=== PATIENT | female | born 1985 | race Caucasian/White ===

== ENCOUNTER 2020-03-15 08:30 | Outpatient (RCR) | payer BC, SELFPAY ==
--- NOTE | 2020-03-15 09:05 | BH.SGPN.GN ---
Behaviors/Verbalizations/Mental Status: [] Eye contact is good. Motor activity is appropriate. Appearance is casual. Speech is Appropriate. Mood is anxious. Affect is congruent. Thoughts are linear and logical. No evidence of psychosis. Reviewed daily check in sheet and pt reports 3/5 for suicidal thoughts and 0/5 for intent. Safety planning completed prior to group. Client Response/Progress/Benefit: [] Pt participated when prompted however was attentive. This was pt's first IOP group. Emotion for today is anxious. Shared that she is in IOP because my doctor thinks I need this. Shared that she wants to get back to feeling healthy and is looking forward to feedback from leena. Group welcomed her to [facility] and provided some feedback on what to expect the first day and week. Limited progress noted. Benefited from group support, encouragement, and feedback. Will continue in IOP to maintain safety, prevent decompensation, and improve functioning. Narrative Note: []
--- NOTE | 2020-03-15 10:16 | BH.SGPN.GN ---
Behaviors/Verbalizations/Mental Status: []Client alert and oriented, casual dress, hygiene tended to. Eye contact fair. Motor activity appropriate. Speech within normal limits. Affect constricted, mood anxious and depressed. Thoughts linear, logical, no signs of hallucinations or delusions. Client Response/Progress/Benefit: []Mostly passive participant AEB pt providing limited input during session however appeared to listen attentively to others. Engaged during psychoeducation portion reviewing fixed mindset. Appeared to listen to group identify how a fixed mindset can impact our mental health which included: decreased motivation, giving up when faced with a setback, not asking for help, low self-esteem, and staying stuck. Pt identified one fixed thought she has is, I'm never going to get better?. Pt did well to recognize that this fixed thought leads to laying in bed all day. Seemed to benefit from group by increasing awareness of how one's mindset impacts mental health. Pt's first day in IOP. Pt to continue IOP level of care to increase healthy coping skills, maintain safety, and prevent decompensation. Narrative Note: []
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
--- NOTE | 2020-03-15 11:02 | BH.COMM ---
Communication Note - Communication with Client Communication Note: Therapist was given permission to talk with client's friend, Malcolm, regarding medication removal. Malcolm agreed to call IOP today after client removes the medications from her home and gives them to Malcolm.
--- NOTE | 2020-03-15 11:16 | BH.SGPN.GN ---
Behaviors/Verbalizations/Mental Status: [] Client alert and oriented, casually dressed and groomed. Eye contact fair to good. Motor activity appropriate. Speech within normal limits, quiet. Affect unable to gather due to client wearing a mask as part of COVID-19 protocol. mood anxious and depressed. Thoughts linear, logical, no signs of hallucinations or delusions. Client Response/Progress/Benefit: []Client first day in IOP treatment, she did well to remain engaged during discussion and listened attentively to peers. Client actively taking notes and remained attentive during discussion on growth mindset. Did well to work with group on identifying characteristics and benefits of adopting a growth mindset. Client engaged during example activity in which participants helped reframe example fixed thoughts into growth mindset thoughts. However, she did not want to share own personal reframed thought, but was willing to complete the worksheet aimed at reframing personal fixed thought. Client identified reframing thought of ?Why try?? with growth mindset thought of ?I have nothing to lose by trying something new?. Benefitted from discussing benefits of growth mindset and brainstorming strategies for prompting growth-mindset. Client progress unable to assess as it is her first day in tx. Will continue IOP tx to maintain safety, reduce depression, and improve healthy coping repertoire. Narrative Note: []
--- NOTE | 2020-03-16 07:57 | BH.COMM ---
Communication Note - Communication with Client Communication Note: Received a message from client's friend, Malcolm. Client removed the medications from her home and Malcolm disposed of them.
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
--- NOTE | 2020-03-16 10:15 | BH.SGPN.GN ---
Behaviors/Verbalizations/Mental Status: []Client alert and oriented, casually dressed and groomed. Eye contact good. Motor activity restless AEB shaking leg. Speech within normal limits. Affect unable to gather due to client wearing a mask for COVID-19 protocol, mood anxious and dysthymic. Thoughts linear, logical, no signs of hallucinations or delusions. Client Response/Progress/Benefit: []Client was mostly a passive participant, shared once with group and took noted, but quiet. Client shared connecting to group topic of self-care and commented that lack of time is a barrier for self-care. Client listened as the group discuss benefits of self-care which included: gain confidence, promote self-love, promotes healthier boundaries, improves mental and physical health, improve relationships, better emotional regulation. Client reported belief that she is not practicing self-care. Participated in the discussion of the common myths about self-care including self-care is a luxury, unproductive, selfish, takes too much time, self-indulgent, should always be fun, too hard/challenging, and makes a person weak. Client listened during the discussion on debunking of these myths. Client seemed to benefit from increased awareness of the importance of self-care and challenging common myths that prevent practicing self-care. Will continue IOP tx to prevent decompensation, improve daily functioning, and maintain safety. Narrative Note: []
[2020-03-16 11:16] VITALS: BP 144/92; PULSE 58; RESP 18
--- NOTE | 2020-03-16 11:16 | BH.SGPN.GN ---
Behaviors/Verbalizations/Mental Status: []Client alert and oriented, casual dress, hygiene tended to. Eye contact fair. Motor activity restless at times. Speech within normal limits. Affect could not be assessed due to pt wearing a mask for COVID-19 safety precautions. mood anxious and depressed. Thoughts linear, logical, no signs of hallucinations or delusions. Client Response/Progress/Benefit: []Client passive participant AEB pt not providing input during session, however appeared to listen attentively to others and completed worksheet. Listened to group discussion on the various areas of self-care, benefits, and various types of self-care activities for each area. Client completed self-assessment activity on he own utilization of the different areas of self-care and was able to identify current practices she actively practices and areas she can improve upon. Client reported she can improve her emotional, physical, and psychological self-care. Client stated she wants to work on eating healthy, identifying a positive everyday, and take time away from her phone. Client appeared to benefit from increasing awareness of how she can improve self-care balance. Will continue IOP tx to increase healthy coping skills, maintain safety, and prevent decompensation. Narrative Note: []
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
--- NOTE | 2020-03-16 13:31 | BH.DR.ITP ---
Initial Treatment Plan - Patient Information Visit Information: ADMISSION DATE: EXPECTED LOS: 4-6 weeks - Problems/Symptoms Problem #1:: Depression Symptom:: suicidal ideation, sadness, hopelessness, worthlessness, anhedonia Problem #2:: Anxiety Symptom:: Rumination, worry, avoidance
--- NOTE | 2020-03-18 10:14 | BH.SGPN.GN ---
Behaviors/Verbalizations/Mental Status: [] Eye contact is fair to good. Motor activity is appropriate. Appearance is casual. Speech is WNL, soft. Mood is depressed, anxious. Affect unable to gather due to wearing a mask for COVID-19 protection, appears constricted. Thoughts are linear and logical. No evidence of psychosis. Client Response/Progress/Benefit: []Pt was engaged AEB taking notes and participating in activity, remained mostly passive during discussion portion. Connected with the topic of pitfalls and expressed connecting with fellow participants on sometimes not recognizing one?s own pitfalls. Pt helped the group discuss barriers that keep them from choosing a healthier path to mental wellness. These barriers included; difficulties adjusting to change, fear of failure, habit, and lack of awareness. Pt reported habit has been a barrier impeding her ability to make progress with her mental health. Pt was engaged during the activity and did well to provide support to the group. Willing to take directions and actively listened to suggestions provided by fellow participants. Pt benefited from increased awareness on the impact that pitfalls can have on mental health. Progress limited as pt is still new to IOP tx and continues to struggle with openly engaging as well as struggles to begin active skill application. Will continue IOP tx to maintain safety, improve ability to regulate emotions, and better manage mental health sx. Narrative Note: []
--- NOTE | 2020-03-18 14:27 | BH.MDN ---
Multi-Disciplinary Note - Note 45-min Individual Date: 03/18/20
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
--- NOTE | 2020-03-18 15:41 | BH.MTP ---
[facility] - Patient Information Program Physician:: Dr. Monsivais Primary Therapist:: Wendy Quintanilla, [facility] - Psychiatric Diagnoses Psychiatric Diagnoses:: Major depressive disorder recurrent, severe without psychosis.; Panic disorder; alcohol use disorder; cluster b traits Diagnosis Code(s):: F33.2 - Estimated LOS Estimated LOS (in weeks):: 6 Problem/Goal #1 - Problem/Goal #1 Stated Goal:: Client will improve mood management and reduce suicidal ideations, feelings of hopelessness, and anger outbursts due to Major Depressive Disorder through Intensive Outpatient Program.?? Description of Barriers: Distorted thought patterns, trauma triggers while at work, additional work stressors, negative view of self, and chronic suicidality. Functional Impact: Pt has been hospitalized 6 times since August 2019 for suicidal ideation. Pt on a reduced schedule due to mental health symptoms interferring with her ability to be at work full-time. Pt's mental health impacts her ability to form and maintain healthy relationships. Pt struggles to get out of bed several times a week. Pt not functioning at baseline. - Objectives Objective #1 Stated Objective: Work with client to develop a ?crisis plan? which includes emergency telephone numbers, 3-4 coping strategies for SI, lists of supports, positive aspects of life, and motivations. Work with client to identify 3-4 sources or triggers to suicidal ideations to increase insight. Identify 3 effective thought-stopping skills to utilize. Interventions: Therapist will provide list of crisis phone numbers. Therapist will work with client to identify effective coping strategies and steps to take in time of mental health crisis. Discharge Criteria: Client will have achieved this goal once she completes her safety plan and is able to independently utilize coping and thought replacement strategies. Target Date: 04/26/20 Review Date: 04/12/20 Objective #2 Stated Objective: Pt will decrease depressive symptoms AEB pt?s score on the DSM 5 cross-cutting measure and improve pt?s daily functioning. Interventions: Through groups and individual therapy, pt will be provided with education on cognitive distortions, mistaken beliefs, and identifying and combating negative self-talk. Therapist will assist pt with getting back into the activities she once enjoyed as well as increasing healthy coping strategies. Discharge Criteria: Pt will have met this goal when pt?s score on the DSM 5 cross cutting measure for depression has been decreased and per pt?s report daily functioning has improved. Target Date: 04/26/20 Review Date: 04/12/20 Problem/Goal #2 - Problem/Goal #2 Stated Goal:: Stabilize anxiety level while increasing ability to function on daily basis.? Description of Barriers: Distorted thought patterns, trauma triggers while at work, additional work stressors, negative view of self, and chronic suicidality. Functional Impact: Pt has been hospitalized 6 times since August 2019 for suicidal ideation. Pt on a reduced schedule due to mental health symptoms interferring with her ability to be at work full-time. Pt's mental health impacts her ability to form and maintain healthy relationships. Pt struggles to get out of bed several times a week. Pt not functioning at baseline. - Objectives Objective #1 Stated Objective: Client will identify 2-3 coping strategies to use when feeling overwhelmed or anxious. Interventions: Therapist will help client process triggers to increased symptoms, and then identify ways to manage these feelings and thoughts. Therapist will also work on helping client feel less isolated and understand better behaviors and escalating tendencies. Discharge Criteria: Client will have met this goal when can safely use 1-2 coping strategies when feeling overwhelmed or anxious. Target Date: 04/26/20 Review Date: 04/12/20 Objective #2 Stated Objective: Pt will decrease anxious symptoms AEB pt?s score on the DSM 5 cross-cutting measure improve pt?s daily functioning. Interventions: Through groups and individual therapy, pt will be provided education about anxiety?s impact on body and common physiological reaction to anxiety. Therapist will teach pt appropriate breathing techniques and build healthy coping skills to manage daily anxieties. Discharge Criteria: Pt will have met this goal when pt?s score on the DSM 5 cross cutting measure for anxiety has been decreased and per pt?s report daily functioning has improved. Target Date: 04/26/20 Review Date: 04/12/20
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
--- NOTE | 2020-03-24 10:15 | BH.SGPN.GN ---
Behaviors/Verbalizations/Mental Status: []Client alert and oriented, neatly dressed and groomed. Eye contact good. Motor activity restless-shaking her leg. Speech within normal limits. Affect unable to gather due to wearing a mask for COVID-19 protocol, mood dysthymic and irritable. Thoughts linear, logical, no signs of hallucinations or delusions. Client Response/Progress/Benefit: []Client responded somewhat well to session, attentive, but quiet. Client listened to the discussion of the quote and how ruminating reinforces staying stuck. Client listened as the group identified the importance of change which included: growth, less anxiety and depression, confidence, and happiness. Group also identified barriers keeping clients from changing which included: fear of the unknown, fear of failure, comfort, and habit. Listened during the discussion of the different zones of change including the pros and cons of each. Client connected with the danger zone and described herself in this zone to be ?careless about life, giving up, and reckless.? Client has a hard time applying coping skills in the moment, so client does not always catch herself before entering the danger zone. Appeared to benefit from gaining awareness of the benefits of change as well as the different zones of change. Will continue IOP tx to prevent decompensation, maintain safety, and reduce impulsivity. Narrative Note: []
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
--- NOTE | 2020-03-25 09:00 | BH.SGPN.GN ---
Behaviors/Verbalizations/Mental Status: [] Eye contact is poor. Motor activity is appropriate. Appearance is casual. Speech is Appropriate. Mood is depressed. Affect is flat. Thoughts are linear and logical. No evidence of psychosis. Reviewed daily check in sheet and pt reports 5/5 for suicidal thoughts and 2/5 for intent. Therapist notified to completed risk assessment. Client Response/Progress/Benefit: [] Pt did not participate in group discussion. Choose to to check in with the group only stating that she felt hopelessness. Did not want to elaborate. Attentive at times during discussion AEB by nodding her head in agreement with certain statements. No progress noted. Limited benefit from group. Will continue in IOP to maintain safety, increase healthy coping, and prevent readmission to hospital. Narrative Note: []
--- NOTE | 2020-03-25 11:15 | BH.SGPN.GN ---
Behaviors/Verbalizations/Mental Status: [] Eye contact is good. Motor activity is appropriate. Appearance is casual. Speech is Appropriate. Mood is depressed. Affect is flat. Thoughts are linear and logical. No evidence of psychosis. Client Response/Progress/Benefit: [] Pt participated if prompted. Provided little feedback on group topic. Attentive during psycho-education on mindfulness coping skills and their impact on her mental health wellness. Pt was able to identify self-soothing, mind-based, and body-based coping skills she wants to incorporate into her current coping skills, The skills she choose were bubble bath, art, time with pets, humor, venting, enjoyable activities, logical games, temperature change, and crossfit. Progress noted. Receptive to incorporating new skills. Will continue in IOP to maintain safety, prevent decompensation, and prevent re-admission to psych unit. Narrative Note: []
--- NOTE | 2020-03-25 17:40 | BH.MDN ---
Multi-Disciplinary Note - Note 45-min Individual Time Started:: 10:30 Date: 03/25/20 Time Stopped:: 11:15
--- NOTE | 2020-03-30 09:05 | BH.SGPN.GN ---
Behaviors/Verbalizations/Mental Status: []Client alert and oriented, neatly dressed and groomed. Eye contact fair. Motor activity restless-shaking leg throughout. Speech soft. Affect unable to gather due to wearing a mask for COVID-19 protocol, mood depressed. Thoughts linear, logical, no signs of hallucinations or delusions. Reviewed client?s symptom tracker, no active suicidal ideations as of 03/30/20. Client's scores for suicidal thoughts and risk are within her baseline. Will meet with individual therapist today. Client Response/Progress/Benefit: []Client responded well to session, attentive and receptive to feedback. Client reports feeling mixed this morning. Client stated her gameplan from last session was to have more positive moments than negative ones and that didn't go well. Client reported her SI was worse yesterday due to work stressors. Client struggled to identify positives, but with group support, client was able to. Client reported she used opposite action as client went to the gym yesterday and reached out to a support. Appeared to benefit from connecting with peers and challenging her perspective. Will continue IOP tx to prevent decompensation, maintain safety, and increase emotional regulation skills. Narrative Note: []
--- NOTE | 2020-04-27 09:02 | BH.SGPN.GN ---
Behaviors/Verbalizations/Mental Status: []Client alert and oriented, casually dressed and groomed. Eye contact fair. Motor activity appropriate. Speech within normal limits. Affect unable to gather due to wearing a mask for COVID-19 protocol, mood irritable and dysthymic. Thoughts linear, logical, no signs of hallucinations or delusions. Reviewed client?s symptom tracker and client's scores were within client's baseline 5/5 for thoughts of suicide and 2/5 for risk. Future oriented AEB discussing her vacation plans next week. Client Response/Progress/Benefit: []Client attentive and participating in session. Client reports feeling angry today due to ongoing job-related stressors. 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 Client stated, I'm not sure if it's just me overthinking it thought. Encouraged to explore if there is tangible evidence to support these feelings. Client's mental health wins today are that client did not drink last night even though I wanted to after the day I had. Client stated she used opposite action and self-talk to help client not drink. Client shared she continues to struggle with regulating her emotions and reported she responded to angry in an unhealthy way this morning towards her co-workers. Appeared to benefit from receiving encouragement from peers. Progress continues to be seen in client's ability to stay out of the hospital. However, client continues to struggle with chronic suicidal ideations and negative thinking that reinforces depression. Will continue IOP tx to prevent decompensation and maintain safety. Narrative Note: []
== END 2020-03-25 23:59 ==
LOC: BHIOP 08:30
PROVIDERS: Referring Provider Psychiatry & Neurology Psychiatry; Visit Provider Psychiatry & Neurology Psychiatry
DX: F33.2 Major depressive disorder, recurrent severe without psychotic features (principal); F41.0 Panic disorder [episodic paroxysmal anxiety]; Z72.89 Other problems related to lifestyle; Z62.810 Personal history of physical and sexual abuse in childhood; Z79.899 Other long term (current) drug therapy; R45.851 Suicidal ideations
CPT/HCPCS: H0035; 90834; 90837; 90853

== ENCOUNTER 2020-03-29 09:00 | Outpatient (RCR) | payer BC, SELFPAY ==
[2020-03-26 00:42] VITALS: BP 144/92; PULSE 58; RESP 18
--- NOTE | 2020-03-29 09:01 | BH.SGPN.GN ---
Behaviors/Verbalizations/Mental Status: []Client alert and oriented, casually dressed and groomed. Eye contact fair to good. Motor activity appropriate. Speech within normal limits. Affect unable to gather due to wearing a mask for COVID-19 protocol, mood depressed. Thoughts linear, logical, no signs of hallucinations or delusions. Reviewed client?s symptom tracker, reports suicidal ideation as a 5/5 which is congruent with pt recent baseline, denies active plan, and indicates intent as 1/5. Denies access to lethal means, future oriented and indicates willingness to meet with an individual therapist to further assess risk and review plan for safety. Client Response/Progress/Benefit: []Client responded well to session, willing to reflect on progress. Client reports feeling a mix of emotions this morning. Client reported her mood has consistently depressed and frustrated due to struggling with depression. 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 Client shared that this was disappointing but that she had attempted to use positive coping skills of doing a word search and deep breathing. Noted that in the moment this was helpful but struggled to sustain and ended up drinking alcohol to cope as a result. Expressed several thought distortions in relation to recent setback. Appeared to benefit from connecting with others and support provided. Progress continues to be limited due to client difficulties in consistent skill application and distorted thinking patterns. Will continue IOP tx to maintain safety, continue to promote healthy coping skills, and prevent decompensation. Narrative Note: []
--- NOTE | 2020-03-29 10:15 | BH.SGPN.GN ---
Behaviors/Verbalizations/Mental Status: []Client alert and oriented, neatly dressed and groomed. Eye contact fair. Motor activity appropriate. Speech soft. Affect unable to gather due to wearing a mask for COVID-19 protocol, mood dysthymic, agitated. Thoughts linear, logical, no signs of hallucinations or delusions. Client Response/Progress/Benefit: []Client attentive and taking notes, occasional contributions. Contributed during discussion on the quote and shared an example of how her negative thinking ?destroyed her positives.? Client reported ? I did positive stuff this weekend but I got alcohol and drank, and all the positives disappeared.? Connected with the discussion about how distorted thought patterns can reinforce mental health symptoms and negatively impact self-esteem and personal relationships. Client attentive throughout the discussion on different types of thought distortions and noted that she connects with all or nothing thinking and mental filtering. Appeared to benefit from increasing awareness of cognitive distortions and how they can impact emotions and behaviors. Client continues to struggle with mood instability and challenging negative thoughts that reinforce depressive cycles. Will continue IOP tx to prevent decompensation, maintain safety, and increase self-awareness. Narrative Note: []
--- NOTE | 2020-03-29 11:54 | BH.COMM ---
Communication Note - Communication with Client Communication Note: Therapist checked-in with client due to client's daily symptom tracker score for suicidal ideation. Client's scores today were 5/5 for thoughts of suicide and 1/5 for risk of suicide. These scores are decreased from last week. Client denies any active suicidal ideations today and reports ability to maintain safety. Client reports she fears and shared there's no coming back from suicide which is a current protective factor. Client has no access to guns at home and her friend, Malcolm, continues to keep her medications. Client is future oriented, talking about her appointments tomorrow and plans for this evening. Client does not appear as an immediate risk to self or others.
--- NOTE | 2020-03-29 16:56 | BH.MDN ---
Multi-Disciplinary Note - Note 30-min Individual Time Started:: 03:56 Date: 03/29/20 Purpose of session/treatment goals addressed:: The purpose of this session was to address client's current emotions, stressors, and negative thoughts. Another goal was to identify strategies to break client's current depressive cycle and challenge distorted thoughts contributing to feelings of hopelessness. Additional topics included; assessing for SI and planning for safety. Symptoms/Behavior:: This counseling session was provided via telehealth using two-way, real-time interactive telecommunication technology between the patient and the clinician. The interactive telecommunication technology included audio and video. The patient was offered telehealth as an option for care delivery during the COVID-19 pandemic and consented to this option. Patient location: [place]. Provider located at [facility] Eye Contact:: Other - unable to assess as session was completed via telehealth Motor Activity:: Other - unable to assess as session was completed via telehealth Appearance:: Other - unable to assess as session was completed via telehealth Speech:: Appropriate Mood:: Depressed Affect:: Other - unable to assess as session was completed via telehealth Thoughts:: Linear, Logical, No evidence of hallucinations/delusions noted Staff Interventions:: Therapist used active listening and open-ended questions to explore client's current symptoms, stressors, and negative thoughts. Therapist assessed client?s SI and encouraged client to follow safety plan she developed in treatment earlier today. Therapist helped client challenge distortions reinforcing hopeless and encouraged client to practice focusing on working to improve the areas within her control. Therapist worked with client to challenge urges to self-sabotage by reviewing potential costs to her mental health and ability to make progress. Reviewed strategies client could use to motivate herself to follow through with identified safety plan. Client Response:: Client called into behavioral health department and indicated needing ta talk with someone as was currently struggling with increased thoughts of since living IOP group earlier today. Noted feeling frustrated that she continues to experience thoughts of which is contributing to increased hopelessness and thoughts of ?I should just give up and be done with it all?. Client denied active suicidal ideation, plan, or intent and indicated she is currently at work. Reports ability to maintain safety today and denies any access to lethal means. 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 Client receptive of discussion on intrusive thoughts in relation to suicidal ideation and was willing to challenge thoughts with therapist. Client indicated connecting with analogy between mental health and physical health. Client connected with idea that just as physical fitness is initially difficult and takes time, mental health also requires patience and effort to begin to see significant results. Client discussed consequences of going home and isolating to her mental health. She expressed wanting to ?feel better? 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 Expressed feeling better by the end of the discussion. Contracts for safety and does not believe she is harm to self. Future-oriented. Plans on attending IOP tomorrow. Reports ability to go to ER should her SI get worse and she feel like she cannot keep self safe. Risks/Concerns:: Client reports fleeting suicidal ideations today which continue at time of phone call. Completed risk assessment by individual counselor while in IOP attendance earlier today and left group indicating ability to maintain safety, denying accute risk,, and with safety plan. Denies any plan or intent to harm self as well as denies any access to firearms or other lethal means. Reports her friend Malcolm has all her medications at this time. Contracts for safety and does not believe she is harm to self. Future-oriented. Plans on attending IOP tomorrow. Able to identify things she could do tonight to keep self-safe, such as go to the gym and attend an EMT training. Reports ability to go to ER should SI get worse and she feel like he cannot keep self safe. Progress Toward Goals/Plan:: Continued limited progress due to client ongoing chronic suicidal ideation. Plan is to continue in IOP to stabilize and maintain safety. Client has plan for safety. Client also reports willingness to seek emergency services at the local hospital should she feel unable to maintain safety at any time. Will continue to monitor SI. Time Stopped:: 04:03
--- NOTE | 2020-03-30 15:45 | BH.MDN ---
Multi-Disciplinary Note - Note 45-min Individual Time Started:: 11:22 Date: 03/30/20 Time Stopped:: 12:10
--- NOTE | 2020-04-01 10:20 | BH.SGPN.GN ---
Behaviors/Verbalizations/Mental Status: [] Client alert and oriented, casually dressed and appropriately groomed. Eye contact fair to good. Motor activity appropriate. Speech within normal limits, quiet. Affect congruent, mood depressed and anxious. Thoughts linear, logical, no signs of hallucinations or delusions. Client Response/Progress/Benefit: []Pt was an engaged participant AEB taking notes and nodding throughout. Appeared to connect with the topic of obstacles and solutions and actively listened as group worked to identify common internal and external barriers that keep people stuck. Group identified; self-doubt, negative thinking, unhealthy coping skills, poor boundaries, and lack of motivation as potential internal barriers that could prevent progress towards a better quality of life. Pt shared current reality as being at a race starting block but unable to move forward because there is a giant truck unloading rocks onto her path. Noted that feelings of being stuck have resulted in pt experiencing increased depression and hopelessness, however recognized she has made some progress in managing these thoughts. Pt's realistic, desired reality is to be able move the rocks aside or climb over them in order to begin working towards her goal. Benefited from group as client was able to identify current mental health state and impact of internal barriers on progress. Progress noted in pt improved engagement and more receptive of support provided by the group. Will continue IOP tx to promote change behaviors, increase application of healthy coping skills for managing depressive thoughts, as well as improve functioning and maintain safety. Narrative Note: []
--- NOTE | 2020-04-01 11:20 | BH.SGPN.GN ---
Behaviors/Verbalizations/Mental Status: []Client alert and oriented, neatly dressed and groomed. Eye contact good. Motor activity appropriate. Speech within normal limits. Affect unable to gather due to wearing a mask for COVID-19 protocol, mood depressed. Thoughts linear, logical, no signs of hallucinations or delusions. Client Response/Progress/Benefit: []Client was an active participant in group discussion and attentive during the activity. Engaged during activity and provided ideas on how to cope with internal barriers that keep clients stuck from moving towards goals. Barriers identified by client were: negative self-talk, mental health stigma, and lack of self-esteem. Group helped identify strategies to combat barriers identified by group members. Client reported she wants to work on overcoming her barrier of negative self-talk. Client shared she plans to do this by believing progress is possible, identifying one affirmation she can tell herself, and reminding self of positives. Benefited from group by identifying obstacles and solutions to desired reality. Progress noted in client?s increased self-awareness of barriers and ability to identify positives in first group. Will continue IOP tx maintain safety, increase emotional regulation skills, and reduce self-sabotaging behaviors. Narrative Note: []
--- NOTE | 2020-04-04 09:03 | BH.SGPN.GN ---
Behaviors/Verbalizations/Mental Status: []Client alert and oriented, casual dress. Eye contact fair to good. Motor activity restless. Speech within normal limits. Mood depressed. Affect flat, though difficult to gather due to client wearing mask per [facility] [place] [address] guidelines. Thoughts linear, logical, no signs of hallucinations or delusions. Reviewed client?s symptom tracker, no signs of suicidal ideation, plan, or intent as of today as client's scores were within her baseline 5/5 for thoughts and 1/5 for intent. Client Response/Progress/Benefit: []Client responded well to session, attentive and receptive to feedback from group. Client could not give therapist an emotion today and shared I don't know when asked. Client shared there were some positives over the weekend, but admits that client has a hard time identifying them. Client stated this weekend she went to the gym, spent time outside, used opposite action, and meditated. Client also reported on Saturday, client did not have any suicidal ideations which is significant for client. Client reported her stressor today was that she drank this weekend and that her grandmother is trying to give client a bunch of alcohol. Therapist gently challenged client on accepting the alcohol, as client is trying to remain sober. Client acknowledges that it is not good idea to take the beer, but could not come up with an alternative. The group encouraged client to dump out the alcohol. Appeared to benefit from reflecting on positives from the weekend and discussing the pros and cons of drinking. Will continue IOP tx to prevent decompensation, maintain safety, and reduce intensity of symptoms. Narrative Note: []
--- NOTE | 2020-04-04 10:06 | BH.SGPN.GN ---
Behaviors/Verbalizations/Mental Status: []Client alert and oriented, casually dressed and groomed. Eye contact fair to good. Motor activity appropriate. Speech within normal limits, quiet. Affect unable to assess as client wearing mask per COVID-19 protocol, mood depressed. Thoughts linear, logical, no signs of hallucinations or delusions. Client Response/Progress/Benefit: []Client receptive of group and attentive during the discussion and activity portion, remained mostly passive participant. Client listened during group discussion on importance of communicating and managing emotions. Appeared to connect with group when participants identified potential costs of not managing their emotions. These included; needs not getting met, increased depression and anxiety, lashing out on others, relationship tension, and ?staying stuck?. Client participated in the challenge activity and did well to encourage fellow participants as well as take direction from the group. Expressed experiencing anxiety during the activity and using positive self-talk to help manage her emotions in the moment. Client appeared to benefit from increasing awareness of how emotions can impact mental health and practicing in the moment coping skills. Progress limited due to ongoing difficulties with consistent skill application. Client will continue IOP tx to further decrease depression and anxiety, improve coping skill application, and improve daily functioning. Narrative Note: []
--- NOTE | 2020-04-04 11:10 | BH.SGPN.GN ---
Behaviors/Verbalizations/Mental Status: []Client alert and oriented, casually dressed and appropriately groomed. Eye contact fair. Motor activity appropriate. Speech within normal limits. Affect could not be assessed due to pt wearing a mask as a requirement during COVID-19 pandemic. mood anxious. Thoughts linear, logical, no signs of hallucinations or delusions. Client Response/Progress/Benefit: []Client passive participant AEB pt providing limited input during discussion, however did complete worksheet and appear to listen to peers. Attentive during psychoeducation on 4 zones of regulation. Client able to identify feelings and behaviors for each zone. Client reported when in the yellow zone she tends to avoid things, yell more, and overreact. Stated in the blue zone she tends to isolate, lays in bed all day, and won't answer phone calls. Group identified coping skills one can use to support self in each zone which included: opposite action, exercise, positive self-talk, meditate, goal setting, and sitting on front porch. Client stated belief that she most often is in the yellow zone. Benefited from increased education on zones of regulation or stages of alertness for emotions and healthy coping skills to use for each zone. Will continue IOP tx to maintain gains, decrease negative thoughts, and prevent decompensation. Narrative Note: []
--- NOTE | 2020-04-04 14:46 | BH.MDN ---
Multi-Disciplinary Note - Note 30-min Individual Time Started:: 12:10 Date: 04/04/20 Time Stopped:: 12:35
--- NOTE | 2020-04-05 09:05 | BH.SGPN.GN ---
Behaviors/Verbalizations/Mental Status: []Client alert and oriented, casually dressed and groomed. Eye contact fair. Motor activity appropriate. Speech within normal limits. Affect unable to gather due to wearing a mask for COVID-19 protocol, mood depressed and anxious. Thoughts linear, logical, no signs of hallucinations or delusions. Reviewed client?s symptom tracker, risk for suicidal ideation noted as 5/5, reported intent as 2/5. Pt denies active plan. Baseline report is consistently a 5/5 for ideation and 1/5 for intent. Willing to review safety plan with individual therapist and pt reports an ability to maintain safety as of this date, 04.05.20. Client Response/Progress/Benefit: []Pt responded well to session, willing to process with group. Reports feeling ?really depressed today and indicated that she continues to struggle with a ?vicious cycle? of negative thoughts. Noted ongoing difficulties in managing trauma related triggers continues to impact her thought patterns and in turn reduces willingness to challenge negative thoughts or engage in healthy alternative means of coping. Expressed knowing that drinking and continuing to work at the [employer] are unhealthy fr her but struggles with resistance to change. Appeared to benefit from reviewing behavior chain analysis and support from group. 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 Continues to struggle with self-deprecation and reluctance to consistently use skills for managing her emotions which has impacted ability to make progress and continues to reinforce symptoms of depression. Will continue IOP tx to increase utilization of emotion regulation and thought challenge skills, maintain safety, and prevent decompensation. Narrative Note: []
--- NOTE | 2020-04-05 10:20 | BH.SGPN.GN ---
Behaviors/Verbalizations/Mental Status: []Client alert and oriented, casually dressed. Eye contact fair. Motor activity restless. Speech within normal limits. Affect could not be assessed due to pt wearing a mask as a requirement during COVID-19 pandemic. mood depressed and anxious. Thoughts linear, logical, no signs of hallucinations or delusions. Client Response/Progress/Benefit: []Pt passive participant throughout session AEB pt providing limited input throughout discussion, however did appear to listen attentively to peers and completed worksheet. Group identified triggers of anger include: feeling disrespected by others, feeling overwhelmed, high expectations of self, overwhelming stress, and comparing self to others. Pt shared emotions that are underlying anger include: helpless, PTSD, guilt, lonely, overwhelmed, shame, betrayal, and fear. Pt identified the following as ways she expresses anger:shutting down, self-sabotage (drinking), self-harm, yelling at others, and pushing supports away. Pt seemed to benefit from increased awareness of how unmanaged anger can impact self and others. Progress noted with pt being able to maintain safety, however continues to struggle with daily suicidal ideation and depressive symptoms. Pt to continue IOP to increase consistent application of skills, increase internal healthy coping skills, and prevent decompensation. Narrative Note: []
--- NOTE | 2020-04-05 11:19 | BH.SGPN.GN ---
Behaviors/Verbalizations/Mental Status: []Client alert and oriented, casually dressed and groomed. Eye contact fair. Motor activity appropriate. Speech within normal limits. Affect unable to gather due to client wearing a mask for COVID-19 protocol. mood dysthymic. Thoughts linear, logical, no signs of hallucinations or delusions. Client Response/Progress/Benefit: []Client was an engaged participant throughout group AEB client participating when prompted. Client helped the group identify common warning signs of anger and identified personal warning signs of anger which included: chest tightness, shutting down, avoiding supports, and in the past client exploded. Client reported ?so I guess what I do now is better? however, therapist helped client see that shutting down and avoiding support can be just as unhealthy. Group brainstormed with group healthy coping skills to help manage anger which included: deep breathing, opposite action, exercise, taking breaks, grounding, and journaling. Client selected the 5 senses as the skill client wants to incorporate this week to manage anger. Client receptive to practice this skill each day to help make it a habit and shared she can practice this in the morning. Client appeared to benefit from identifying different techniques to manage anger as well as gaining awareness of warning signs. Progress continues to be limited as client continues to report daily suicidal ideations. Client will continue IOP tx to prevent decompensation that may require hospitalization and to maintain safety. Narrative Note: []
--- NOTE | 2020-04-06 10:05 | BH.SGPN.GN ---
Behaviors/Verbalizations/Mental Status: []Client alert and oriented, neatly dressed and groomed. Eye contact fair. Motor activity appropriate. Speech within normal limits. Affect unable to gather due to wearing a mask for COVID-19 protocol, mood depressed. Thoughts linear, logical, no signs of hallucinations or delusions. Client Response/Progress/Benefit: []Client active participant in group AEB client participating when prompted and listening attentively to peers. Group worked together to identify barriers to taking action in their lives which included: habits, negative thinking, apathy, lack of motivation, and being stuck in the past. Group identified that taking action is needed in order to improve mental health. Client identified areas client would like to take back control over in life to include: lack of motivation, lack of support, alcohol use, negative thinking, and fear of the unknown. Client shared if she could take control over these things, client would be able to break the depressive cycle more often. Benefited from awareness of personal areas client wants to improve and benefits to taking action towards mental wellness. Will continue IOP tx to prevent decompensation, maintain safety, and increase social support. Narrative Note: []
--- NOTE | 2020-04-06 12:21 | PCM.BH.PN_ITS ---
Progress Note Progress Note: History of Present Illness/Interim History: [] The patient is a 34-year-old female who is seen in follow-up at the [facility] behavioral health IOP program. I last saw the patient 3 weeks ago and at that time no medication changes were made. The patient states that about 3 or 4 days after our appointment together March 16 she discontinued all her medications on her own. She then followed up with her current psychiatrist and that psychiatrist placed her on Saphris and trazodone. She is tolerating these medications well but remains depressed with chronic suicidal ideation. She states that she has a lot of stresses including losing her [employer] security clearance in the and at work and she is worried that she may be discharged from the due to her mental health issues. 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 She is looking forward to going on vacation in [place] in April with her sister and her family. Patient does not feel that medications or IOP are really helping her. 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 The patient states that when she gets what she feels is a manic episode lasts about 4 to 6 hours but sometimes lasts almost a week. She gets a lot of energy at night during these episodes. I did not get this history from the patient at her initial visit. She admits to feeling suicidal ideation with a plan to overdose but does not have access to large quantities of medication. She states that she is trying to use the skills she learns in IOP but is not sure if it is helping her. She describes her mood as depressed. She has decreased her cutting since starting the Saphris and has not cut herself for 10 days now. However she admits that she is still trying to tear apart her knee when she over exercises. Discussed with the patient that she should try to use skills she learns in the IOP to substitute for her self-harm methods. The patient is still using alcohol about twice a week but she says she only drinks 1-3 beers twice a week and denies any other drug use. Current Psychiatric Medications: [] Naltrexone, Seroquel, Zoloft, and prazosin were all discontinued by the patient about 3 weeks ago. Patient is now on Saphris 10 mg sublingually nightly (x2 weeks); trazodone 150 mg p.o. nightly Mental Status Examination: [] Patient is seen wearing a mask due to the pandemic. She is casually dressed and groomed with good hygiene. Her eye contact is fair. Her speech is normal rate and rhythm and fluent with no pressure. Her mood is depressed. Her affect is constricted to flat. Thought process is goal-directed and organized. Thought content: There is evidence of chronic passive to active suicidal ideation with a plan to overdose. There is no evidence of hallucinations or delusions. Impulsivity: High to moderate. Insight: Poor. Judgment: Limited. Diagnoses: [] [place] I: [] Major depressive disorder, recurrent, severe without psychosis; rule out bipolar, NOS; panic disorder; alcohol use disorder [place] II: [] B traits [place] III: [] Status post left knee replacement [place] IV:[]] Primary support, work issues Plan: [] The patient will continue the IOP program at [facility] as the structure, support, education, group and individual therapy will hopefully prevent worsening of the patient's symptoms which might require hospitalization. She felt safe during the interview and if at any time she does not feel safe she will let us know or go to the emergency room. The patient will attempt to use skills she is learning in the IOP program to stop self harming by overworking her knee with exercise or cutting. The patient will continue to make safety agreements with her therapist at the IOP program. If at any time she does not feel safe or deteriorates she understands she may have to be admitted to the hospital. No medication changes were made as she been has only been on these medications for 2 weeks.
--- NOTE | 2020-04-06 15:48 | BH.MDN ---
Multi-Disciplinary Note - Note 60-min Individual Time Started:: 12:05 Date: 04/06/20 Time Stopped:: 13:05
--- NOTE | 2020-04-07 11:05 | BH.SGPN.GN ---
Behaviors/Verbalizations/Mental Status: []Client alert and oriented, casual dress, hygiene tended to. Eye contact fair. Motor activity restless AEB pt shaking legs and fidgety with hands. Speech within normal limits. Affect could not be assessed due to pt wearing a mask due to COVID-19 pandemic requirements. mood depressed and anxious. Thoughts linear, logical, no signs of hallucinations or delusions. Client Response/Progress/Benefit: []Pt mostly passive participant AEB pt providing limited input during session, however did appear to listen attentively to others and completed worksheet. Pt benefitted from listening as group reflected upon the mental health benefits of taking small actionable steps towards addressing barriers and promoting healthy change in daily life. Pt stated she will work on decreasing negative thinking because her thoughts are keeping her stuck. Pt reported she will reframe at least 3 negative thoughts a day. Progress can be noted with pt following through with safety plan created to maintain safety, however continues to engage in self-sabotaging behaviors that keep her stuck. Recommended continued IOP tx to increase use of healthy skills, maintain safety and prevent decompensation. Narrative Note: []
--- NOTE | 2020-04-11 09:05 | BH.SGPN.GN ---
Behaviors/Verbalizations/Mental Status: []Client alert and oriented, neatly dressed and groomed. Eye contact good. Motor activity restless. Speech within normal limits. Affect unable to gather due to wearing a mask for COVID-19 protocol, mood agitated. Thoughts linear, logical, no signs of hallucinations or delusions. Reviewed client?s symptom tracker, client's scores were below client's baseline. No risk for suicidal ideation, plan, or intent as of 04/11/20. Client Response/Progress/Benefit: []Client responded well to session, attentive and providing supportive statements. Client reports feeling extremely agitated this morning, but client had many positives today. Client stated one of the biggest reasons she is agitated is because of her work environment. Client stated I could be in a great mood and then go to work and I'm bad. Client receptive to feedback from peers on managing mental health at work. 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 Client reported I'm actually doing good with the thought challenging. Additionally, client's symptom tracker scores for SI are the lowest they have been while in IOP which demonstrates progress. Appeared to benefit from reflecting on gains and receiving support from peers. Will continue IOP tx to further decrease SI, improve mood stability, and increase consistent application of coping skills. Narrative Note: []
--- NOTE | 2020-04-11 10:14 | BH.SGPN.GN ---
Behaviors/Verbalizations/Mental Status: []Client alert and oriented, casual dress, hygiene tended to. Eye contact fair. Motor activity restless. Speech within normal limits. Affect could not be assessed due to pt wearing a mask as a requirement for COVID-19 pandemic. mood dysthymic and anxious. Thoughts linear, logical, no signs of hallucinations or delusions. Client Response/Progress/Benefit: []Pt receptive to session, quiet but provided input at times and listened attentively to peers. Provided input as the group brainstormed the positive and negative aspects of stress on physical and mental health. Group did well to identify that the benefits of stress include: motivates us, heightened senses/focus, increased productivity, and keeps us safe. 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 Progress noted with pt reporting decreased suicidal thoughts, however continues to struggle with applying skills independently outside of treatment environment. Seemed to benefit from increased awareness of personal stressors and understanding impact of stress of the mind and body. Recommended to continue IOP tx to improve healthy coping skill application, improve emotional regulation, and prevent decompensation. Narrative Note: []
--- NOTE | 2020-04-11 11:16 | BH.SGPN.GN ---
Behaviors/Verbalizations/Mental Status: []Client alert and oriented, casually dressed and groomed. Eye contact fair to good. Motor activity appropriate. Speech within normal limits, quiet. Affect unable to gather due to wearing a mask for COVID-19 protocol, mood depressed. Thoughts linear, logical, no signs of hallucinations or delusions, at times appearing distracted by own thought. Client Response/Progress/Benefit: []Client a mostly engaged participant in session AEB client listening attentively to others, providing some input, and taking notes during session. Client continues to struggle to provide input when not elicited. Client reported when she does not manage stress well client experiences increased thoughts of and self-harming. Reports this continues to reinforce her cycle of depression and feelings of hopelessness. Client actively listening during discussion about the 4 A's of managing stress. Client able to connect with the different strategies for all the A's and indicated agreeing with several of the suggestions presented by the group. Identified she wants to work on managing stressor of being discharged from the by practicing acceptance and working on reframing this as potentially necessary for improving her mental health. Client shared this will help reduce negative thoughts. Client seemed to benefit from increased awareness of the impact of stress on mental health and increasing repertoire of stress management strategies. Will continue IOP tx to promote use of healthy coping skills, improve management of depression, as well as prevent decompensation. Narrative Note: []
--- NOTE | 2020-04-12 09:05 | BH.SGPN.GN ---
Behaviors/Verbalizations/Mental Status: []Client alert and oriented, casual dress, hygiene tended to. Eye contact fair to good. Motor activity appropriate. Speech within normal limits. Affect unable to accurately assess as client wearing mask per COVID-19 protocol, mood depressed and anxious. Thoughts linear, logical, no signs of hallucinations or delusions. Reviewed client?s symptom tracker and client self-reports suicidal ideation at rate of 2/5 which is markedly below baseline of 4 to 5/5, denies plan, or intent as of 04/12/20. Client Response/Progress/Benefit: [] Pt responded well to session, attentive and provided input throughout. Reports feeling in a fog today and noted ongoing difficulties in remaining present. Receptive of grounding skills suggested by the group to aid in reducing feelings of being distant. Pt did well to identify current wins which included refraining from alcohol use despite experiencing an additional trigger the night before, as well as increased use of skills in order to reduce urges to drink. Pt noted sitting on her deck outside which was helpful for relaxing her mind and focusing on the potential consequences of drinking to reduce urges to do so. Pt expressed that although she did not drink the previous night, she has ongoing difficulties with engaging in self-harm via over exertion on her injured knee. Expressed going to the gym and working out to the point of risking injury. Continues to struggle with identifying alternatives to self-harming behaviors. Pt receptive of and appeared to benefit from support provided by the group as well as reflecting on areas in which she is making progress. Pt progress includes increased application of healthy coping mechanism, increased use of healthy decision making rather than self-sabotaging, and maintaining overall ability to maintain safety. Will continue IOP tx to promote gains, continue to encourage healthy change behaviors, and prevent decompensation. Narrative Note: []
--- NOTE | 2020-04-12 13:49 | BH.MDN ---
Multi-Disciplinary Note - Note 45-min Individual Time Started:: 11:20 Date: 04/12/20 Time Stopped:: 12:10
--- NOTE | 2020-04-12 15:14 | BH.TPR ---
Treatment Plan Review Date of Admission:: 03/15/20 Date of Treatment Plan Review:: 04/12/20 Admitting Diagnoses:: F33.2 Major depressive disorder, recurrent, severe without psychosis; rule out bipolar, NOS; panic disorder; alcohol use disorder; B traits Current Diagnoses:: F33.2 Major depressive disorder, recurrent, severe without psychosis; rule out bipolar, NOS; panic disorder; alcohol use disorder; B traits Patient's Response to Treatment:: Attending program consistently. Passive participant, provides limited input during group sessions. Completed DSM-5 cross cutting scales which indicates a 13% reduction in symptoms since starting the program. Notes 37.5 % reduction in depression scores and 27% reduction in anxiety scores. DSM5 cross-cutting scales indicate reduced symptoms at 4 weeks. Pt utilizes some of the skills outside treatment environment. Continues to report daily thoughts of suicide. Has been able to plan for safety. Decrease in self-harm behaviors. Continues to engage in self-sabotaging behaviors. Struggles with independently coping; calls IOP therapist 4-5 times per week for crisis intervention. We discussed discharge, pt stated ?I don?t know? when asked about discharge. Open to ideas about d/c from therapist, will reassess in 1-2 weeks. Already established with outpatient therapist and psychiatrist but will need more services due to chronic suicidality. Will continue in IOP to maintain gains and prevent decompensation. Treatment plan goals still left to accomplish. Status of Current Problems and Symptoms: Struggles with relationships, anxiety, depression and hopelessness. Decrease in self-harming behaviors. Endorses depressed mood, low motivation, apathy, poor appetite, difficulty concentrating, and daily thoughts of . Slight improvement with depression and anxiety. Problem #1 Problem Name:: Depression Status of Goals:: Pt is making progress on objectives 1 and 2. Obj 1- Able to complete crisis plan. Struggles with utilizing the internal skills listed on the crisis plan. Seems pt has an over reliance on external supports. Obj 2- Notes 37.5% reduction in depression n DSM5 QUESTIONAIRE. Pt continues to report depressive symptoms with hopelessness and suicidal ideation. Team Recommendations:: continue IOP to increase utilization of crisis skills independently, continue to challenge distorted thoughts to help decrease depressive symptoms and increase ability to combat suicidal thought patterns. Problem #2 Problem Name:: Anxiety Status of Goals:: Obj1- Pt is aware of anxiety coping skills like 5 senses, breathing, and mindfulness tools. Pt struggles with consistently applying skills. obj2- Progress noted AEB a 27% reduction in anxiety scores on DSM 5- QUESTIONAIRE. Team Recommendations:: Continue with IOP to increase consistent application of healthy coping skills, decrease avoidance, and prevent decompensation.
--- NOTE | 2020-04-15 09:00 | BH.SGPN.GN ---
Behaviors/Verbalizations/Mental Status: [] Eye contact is good. Motor activity is appropriate. Appearance is casual. Speech is Appropriate. Mood is depressed. Affect is flat. Thoughts are linear and logical. No evidence of psychosis. Reviewed daily check in sheet and pt reports 5/5 for suicidal thoughts and 2/5 for intent. This is close to baseline for patient however there has been improvement this week. Therapist notified to meet with her individually. Client Response/Progress/Benefit: [] Pt did not participate in group. Declined check-in. No progress noted. Limited benefit from group. Will continue in IOP to maintain safety, provide support, and improve functioning. Narrative Note: []
--- NOTE | 2020-04-15 10:00 | BH.SGPN.GN ---
Behaviors/Verbalizations/Mental Status: []Client alert and oriented, casual appearance. Eye contact good. Motor activity appropriate. Speech within normal limits. Affect unable to gather due to wearing a mask for COVID, mood depressed and agitated. Thoughts linear, logical, no signs of hallucinations or delusions. Client Response/Progress/Benefit: []Client responded well to session, attentive during discussion and engaged during the activity. Client connected with the quote and how people typically expect progress to be linear. Client shared she gets upset with herself when she experiences setbacks. Group reported even though change can be scary, change can be positive. Worked with the group to identify barriers to making change, which included: toxic supports, lack of resources and money, lack of time, cognitive distortions, and fear of failure. Client shared stepping out one?s comfort zone is also a barrier to making change. Client participated in the activity where they identified and discussed the emotions related to change. Client reported when she feels anxious or overwhelmed about change she is less likely to be motivated. Benefited from increased awareness and understanding of emotions, benefits, and barriers related to change. Will continue IOP tx to prevent decompensation, maintain safety, and increase emotional regulation skills to reduce impulsivity. Narrative Note: []
--- NOTE | 2020-04-15 11:14 | BH.SGPN.GN ---
Behaviors/Verbalizations/Mental Status: []Client alert and oriented, casually dressed and groomed. Eye contact fair. Motor activity appropriate. Speech within normal limits, quiet. Affect unable to gather due to wearing a mask for COVID-19 protocol, mood depressed. Thoughts linear, logical, no signs of hallucinations or delusions. Client Response/Progress/Benefit: []Client was an attentive participant throughout AEB contributing some input to discussion and listening to peers and taking notes. However, remained mostly passive in participation. Client again remained engaged during discussion on the change process and the emotions one might experience throughout the process of change. Client indicated impatience and frustration as emotions she has associated with change in the past. Client benefited from working with the group to identify potential strategies for promoting healthy change behaviors. Identified wanting to make more of an effort to remind herself to use healthy skills by setting reminders for herself in her phone. Progress continues to be inconsistent as client continues to struggle with consistent skill application and reassurance seeking when outside of the treatment environment; however, has been able to successfully maintain safety and prevent from crisis escalation. Recommended continued IOP tx to prevent decompensation, improve mood stability, and increase destress tolerance skills. Narrative Note: []
--- NOTE | 2020-04-15 14:18 | BH.MDN ---
Multi-Disciplinary Note - Note 30-min Individual Time Started:: 12:20 Date: 04/15/20 Purpose of session/treatment goals addressed:: The purpose of this session was to address client's current emotions and negative thoughts related to a recent stressor. Another goal was to introduce client to the Choice Point Model and identify strategies to aid client in moving towards her goals and values. Additional topics included; assessing for SI and planning for safety. Eye Contact:: Fair Motor Activity:: Appropriate Appearance:: Casual Speech:: Appropriate, Soft Mood:: Irritable, Depressed Affect:: Other - unable to assess as client wearing a mask per [address] protocol. Thoughts:: Linear, Logical, No evidence of hallucinations/delusions noted Staff Interventions:: Therapist used active listening and open-ended questions to explore client's current symptoms, thoughts, and initial reactions related to recent identified stressor. Therapist helped client challenge distortions reinforcing hopeless and maintaining depressive cycle. Provided psychoeducation on the ACT Choice Model and worked with client to identify strategies client could use to help her move towards desired goals and values rather than maintain the behaviors leading her away from them. Therapist assessed client?s SI and encouraged client to follow safety plan developed during session Client Response:: Session to assess client for risk as she indicated an increase in suicidal ideation during process group. Client receptive of session, remained actively engaged throughout. Appeared quiet and kept head down during first portion of session as she discussed having a meeting the previous date regarding her employment and potential ability to return to work. 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 Expressed feeling hopeless and frustrated as a result. Noted that she was tempted to drink alcohol after the conversation as she had already relapsed the night before and felt it wouldn?t matter if she did. Noted however, that she had refrained from doing so and instead attempted to read outside and reach out to a friend. Discussed neither intervention had been effective in improving her mood and that she continued to struggle with distorted thoughts throughout the night. Indicated ?the only thing that kept me from doing something is that I didn?t have anything in the house?. Client did well to identify having protective factors in place to limit access to potential self-harming or lethal means as a positive. Client was willing to work with therapist to challenge distorted thought patterns reinforcing client negative thoughts and urges to engage in self-destructive behaviors such as binge-drinking alcohol. Therapist introduced the Choice Point Model to client, identifying her recent occupational stressor as the antecedent resulting in her current choice point. Client identified how her current thoughts and coping responses have been the ?hook? continuing to result in feeling depressed and acting/thinking in ways that don?t align with her desired goals and personal values. Worked with therapist to identify alternative ways to look at her current circumstances in order to move towards healthier coping responses and better challenge negative thought patterns. Client initially struggled with such but was able to identify some positives such as less trauma exposure, increased time to work on her mental health, and working towards feeling more like herself again. Identified behaviors she should avoid this weekend as well as those that would help progress towards her desired goals. Client identified needing to ?dump the alcohol at my grandmas? and ?stay away from the station?. Shared she could instead read and do workouts that would be easy on her knee. Reports feeling a little better compared to this morning, denying any active SI, and expressed an ability to maintain safety. Risks/Concerns:: Client reports passive suicidal ideation earlier today without current plan or intent. This is consistent with client baseline. Denies access to any lethal means. Completed risk assessment by this counselor. Client denying acute risk and willing to safety plan for the weekend. Denies any plan or intent to harm self as well as denies any access to firearms or other lethal means. Reports her friend Malcolm has all her medications at this time. Contracts for safety and does not believe she is harm to self. Future-oriented. Plans on attending IOP Saturday and spending time with her father this . Able to identify things she could do tonight to keep self safe. Progress Toward Goals/Plan:: Progress continues to be limited and variable due to client ongoing chronic suicidal ideation. Client continues to struggle with distress tolerance skills and often seeks self-harming means of regulating emotions such as alcohol or overworking her knee. Some progress in increased insight and self-report of reduced engagement in self-destructive behaviors. Responds well to positive reinforcement and components of DBT. Plan is to continue in IOP to stabilize and maintain safety. Client has plan for safety. Will continue to monitor SI. Time Stopped:: 12:53
--- NOTE | 2020-04-18 09:01 | BH.SGPN.GN ---
Behaviors/Verbalizations/Mental Status: []Client alert and oriented, casually dressed and groomed. Eye contact fair. Motor activity restless- shaking her leg. Speech within normal limits. Affect unable to gather due to wearing a mask for COVID-19 protocol, mood dysthymic and agitated. Thoughts linear, logical, no signs of hallucinations or delusions. Reviewed client?s symptom tracker, client was a 5/5 for thoughts of suicide and 2/5 for intent. Therapist to follow up with client. Client Response/Progress/Benefit: []Client responded well to session, attentive and receptive to feedback. Client reports feeling highly agitated this morning. Client shared she feels anxious and uneasy because the one support person who has been keeping client's medications and dispersing them is unable to do this for a period of time. Client receptive to ideas from group of other ways to maintain safety and willing to talk to her individual therapist about this today. Client had several wins from the weekend including using thought challenging, opposite action, and dumping all her alcohol. Client stated she did not drink this weekend which was a significant step towards recovery as client had a relapse last week. Appeared to benefit from reflecting on her sobriety over the weekend. Will continue IOP tx to prevent decompensation, increase use of healthy coping skills, and maintain safety. Narrative Note: []
--- NOTE | 2020-04-18 10:10 | BH.SGPN.GN ---
Behaviors/Verbalizations/Mental Status: [] Client alert and oriented, casual dress, hygiene tended to. Eye contact fair. Motor activity appropriate. Speech within normal limits, quiet and limited input provided. Affect could not be assessed due to pt wearing a face mask as precaution against coronavirus. mood depressed and agitated. Thoughts linear, logical, no signs of hallucinations or delusions. Client Response/Progress/Benefit: [] Pt remained a mostly passive participant AEB pt providing limited input during discussion, however did well to listen attentively to peers and take notes throughout. Appeared to connect with topic of healthy boundaries. Identified that for her a barrier to establishing healthy boundaries in the past has been being hurt by others. She listened to the group identify potential benefits of healthy boundaries which included: increased mental health stability, improved balance regarding responsibilities, improved relationships, and letting others know what we are and are not okay with. Pt participated in self-assessment activity in which participants analyzed their own personal boundaries. Identified struggling to believe she can trust others due to being hurt in the past, not feeling she can say ?no? to others, and believing it is her ?duty to hold my supports together?. Shared that she believes this has had significant impacts on her ability to manage her own mental health sx and prevented her from seeking ut support in the past. Appeared to benefit from increased awareness of benefits and costs associated with healthy and unhealthy boundaries, as well as gaining insight into her own personal boundaries. Progress noted in pt increased ability to use healthy means of coping to prevent crisis escalation. Will continue IOP tx to improve self-care, maintain safety, challenge negative and distorted thoughts, and prevent decompensation. Narrative Note: []
--- NOTE | 2020-04-18 11:15 | BH.SGPN.GN ---
Behaviors/Verbalizations/Mental Status: []Client alert and oriented, casually dressed and groomed. Eye contact fair. Motor activity restless. Speech within normal limits. Affect could not be assessed due to pt wearing a mask as a requirement during the COVID-19 pandemic. Mood depressed and irritable. Thoughts linear, logical, no signs of hallucinations or delusions. Client Response/Progress/Benefit: []Pt responded well to session, contributing at times to discussion, and appeared to listen attentively to peers. Remained attentive during psychoeducation on the boundary setting styles and nodded as fellow participants discussed areas in which they have struggled with each style. Pt stated she has rigid boundaries because she will push others away. Pt reported she was raised in an environment in which being rigid was the normal. Pt reported she recognizes by having rigid boundaries she feels lonely and has limited close relationships. Pt stated a desire to be more flexible with her boundaries. Pt did complete task of identifying a small goal she can work towards to improve her boundaries. Seemed to benefit from increased awareness of how her current boundary style impacts her mental health. Will continue IOP tx to increase use of healthy coping skills, maintain safety, and prevent decompensation. Narrative Note: []
--- NOTE | 2020-04-18 16:49 | BH.MDN ---
Multi-Disciplinary Note - Note 60-min Individual Time Started:: 12:15 Date: 04/18/20 Purpose of session/treatment goals addressed:: Purpose of session was to assess pt's current symptoms and stressors. Other topics included: creating suicide safety plan and challenging negative thoughts. Eye Contact:: Fair Motor Activity:: Restless Appearance:: Casual Speech:: Appropriate Mood:: Anxious, Irritable, Depressed Affect:: Other - Affect could not be assessed due to pt wearing a mask as a requirement during COVID-19 pandemic. Thoughts:: Circular, No evidence of hallucinations/delusions noted Staff Interventions:: Therapist used open ended questions to elicit pt's current symptoms and stressors. Therapist worked with pt to create a safety plan for the rest of the day due to pt reporting increase suicidal ideation and intent. Time Stopped:: 13:15
--- NOTE | 2020-04-20 09:02 | BH.SGPN.GN ---
Behaviors/Verbalizations/Mental Status: []Client alert and oriented, casually dressed and groomed. Eye contact fair to good. Motor activity appropriate. Speech within normal limits, quiet. Affect unable to gather due to wearing a mask for COVID-19 protocol, mood depressed. Thoughts linear, logical, no signs of hallucinations or delusions. Reviewed client?s symptom tracker. Client suicidal ideation reported as a 5/5 which is consistent with baseline, reports intent as a 3/5 which is elevated from usual report of 2/5 for intent. Client denies any current plan as of 04/20/20. Future oriented and noted plans to go to work this afternoon. Noted I guess I don't really want to during discussion. Willing to check-in with individual therapist to further assess for risk. Client Response/Progress/Benefit: []Pt receptive of session, engaged throughout and was willing to process with group. Reports feeling ?hopeless? today as she had struggled with negative thoughts the previous night as well as relapsed on alcohol use. Discussed continuing to struggle with feeling things will not improve, as well as recently relapsed on alcohol use. Pt continues to struggle with focusing on negatives and experiences difficulties in challenging her perspective as well as identifying personal areas of progress. Receptive of group support and appeared to benefit from being challenged to identify small personal wins. Pt noted cooking for herself as well as doing a healthy workout the prior date. Progress continues to be limited due to pt fixed thoughts. Recommended continued IOP tx to improve distress tolerance, maintain safety, and better regulate emotions. Narrative Note: []
--- NOTE | 2020-04-20 10:10 | BH.SGPN.GN ---
Behaviors/Verbalizations/Mental Status: []Client alert and oriented, casual dress, hygiene tended to. Eye fair. Motor activity appropriate. Speech within normal limits. Affect unable to assess as pt wearing a mask per COVID-19 protocol, mood agitated and dysthymic. Thoughts linear, logical, no signs of hallucinations or delusions. Client Response/Progress/Benefit: []Pt responded well to session AEB participating in activity and attentively listening to discussion. Pt listened as the group discussed the costs of resisting change and the benefits of adapting to adversity. Pt was encouraged to share during session, but declined and stated ?I?m not in a good mood today.? Therapist used motivational interviewing to encourage pt to practice opposite action to improve her mood. Attentive during psychoeducation on various [place] factors in developing personal resilience. Pt listened during group discussion identifying benefits of each factor in fostering resilience. Pt seemed to benefit from increasing awareness of strategies to increase personal resilience and the impacts of resilience on managing mental health sx. Progress continues to be variable, depending on the day and external stressors pt is experiencing. Pt is improving at using opposite action to combat SI and to prevent herself from drinking. Will continue IOP tx to prevent decompensation, increase healthy coping skills, and maintain safety. Narrative Note: []
--- NOTE | 2020-04-20 11:10 | BH.SGPN.GN ---
Behaviors/Verbalizations/Mental Status: [] Eye contact is good. Motor activity is appropriate. Appearance is casual. Speech is Appropriate. Mood is depressed. Affect is flat. Thoughts are linear and logical. No evidence of psychosis. Client Response/Progress/Benefit: [] Pt was an active participant in group activity. Attentive during psychoeducation. In pt's small group they looked at defining and discussing how the certain building blocks of resiliency (making connections, avoid seeing crises as insurmountable, accept that change is a part of living, move toward your goals, and take decisive action) help one be self-reliant. Pt believes that she is best at self-awareness and set a goal to work on improve her keeping things in perspective and maintaining a hopeful outlook to increase her resilience. Progress noted. Pt benefited from education on the 10 building blocks of resilience and was able to identify areas to work on to improve resilience. Will continue in IOP to maintain safety, improve functioning, and learn healthy coping skills. Narrative Note: []
--- NOTE | 2020-04-21 09:03 | BH.SGPN.GN ---
Behaviors/Verbalizations/Mental Status: []Client alert and oriented, casually dressed and groomed. Eye contact fair- looking at the floor at times. Speech soft. Motor activity restless- shaking leg. Affect constricted despite wearing a mask. Mood depressed and agitated. Thoughts linear, no signs of hallucinations or delusions. Reviewed client's symptoms tracker which indicated 5/5 for thoughts of suicide and 2/5 for risk. IOP therapist will follow up with client. Client Response/Progress/Benefit: []Client responded somewhat well to session, receptive to feedback, but struggles to identify positives on her own. Client reports feeling depressed this morning. Client shared her gameplan from group yesterday was to name her successes, but client did not follow through with this goal. Client stated she did follow through with not drinking and sat on the porch and read instead. Recognized that engaging in healthy coping skills prevented client from spiraling into a deeper depression. Client reports she continues to have daily suicidal ideations and I just want those to go away. Client encouraged to continue combatting her distortions because disqualifying the positives reinforces suicidal ideations. Appeared to benefit from thought challenging in the moment. Will continue IOP tx to prevent decompensation, maintain safety, and reduce impulsivity. Narrative Note: []
--- NOTE | 2020-04-21 10:15 | BH.SGPN.GN ---
Behaviors/Verbalizations/Mental Status: []Client alert and oriented, casually dressed and appropriately groomed. Eye contact poor. Motor activity restless. Speech within normal limits. Affect could not be assessed due to pt wearing a mask as a requirement during COVID-19 pandemic. mood depressed and anxious. Thoughts linear, logical, no signs of hallucinations or delusions. Client Response/Progress/Benefit: []Pt was a passive participant AEB pt not providing input throughout session, however appeared to listen attentively to peers. Pt listen to group to identify how negative perspective can impact mental health which included: self-fulfilling prophecy, staying stuck, increase depression, and increase anxiety.?Pt appeared to benefit from increasing understanding of mental health benefits of a positive perspective and potential consequences to progress when perspective is negative. Pt continues to struggle with daily suicidal thoughts and self-sabotaging behaviors. Pt to continue IOP level of care to increase consistent utilization of healthy coping, decrease self-sabotaging behaviors, and prevent decompensation. Narrative Note: []
--- NOTE | 2020-04-21 21:19 | BH.MDN ---
Multi-Disciplinary Note - Note 60-min Individual Time Started:: 11:40 Date: 04/21/20 Purpose of session/treatment goals addressed:: Purpose of session was to assess pt's current symptoms and stressors. Session focused on planning for safety due to pt having increased suicidal thoughts and intent. Eye Contact:: Fair Motor Activity:: Restless Appearance:: Casual Speech:: Appropriate Mood:: Anxious, Depressed Affect:: Other - affect could not be assessed due to pt wearing a mask as a requirement because of the COVID-19 pandemic. Thoughts:: Logical, Circular, No evidence of hallucinations/delusions noted Staff Interventions:: Therapist used open ended questions to elicit pt's current symptoms and stressors. Therapist reviewed homework from last therapy session, assisted pt with challenging negative and distorted thought patterns. Therapist worked collaboratively with pt to plan for safety. Provided support by providing feedback and listening attentively. Time Stopped:: 12:40
--- NOTE | 2020-04-22 09:00 | BH.SGPN.GN ---
Behaviors/Verbalizations/Mental Status: [] Eye contact is good. Motor activity is appropriate. Appearance is neat. Speech is Appropriate. Mood is anxious. Affect is congruent. Thoughts are linear and logical. No evidence of psychosis. Reviewed daily check in sheet and pt reports 5/5 for suicidal ideations and 2/5 for intent. Therapist notifed. This is close to baseline for patient. Client Response/Progress/Benefit: [] Pt participated at times during group discussion. Pt volunteered to go first which is unusual. Emotion for today is depressed and irritable. Started off check-in discussing that she completed her goals which included identifying 2 positives each day, maintaining sobriety, and sitting outside for 15 minutes. Notes being upset and irritable regarding possibly not being able to go to [place] for her vacation. Per pt her boss states that if she goes she will have to quarantine for 14 after she returns. Pt unable to take that much time off vacation. She informed her family and they quickly came up with alternative plans however pt remains depressed stating I want to go to the beach. Group members attempted to reframe and highlight positives however pt did not appear to be receptive. Ruminating on the negatives. Some progress noted as pt has been completing goals, however she continues to focus exclusively on negatives in her life. Family does seem to be supportive. Will continue in IOP to maintain safety and improve functioning. Narrative Note: []
--- NOTE | 2020-04-22 11:15 | BH.SGPN.GN ---
Behaviors/Verbalizations/Mental Status: []Client alert and oriented, neatly dressed and groomed. Eye contact fair. Motor activity appropriate. Speech soft. Affect unable to gather due to wearing a mask for COVID-19 protocol, mood depressed and irritable. Thoughts linear, logical, no signs of hallucinations or delusions Client Response/Progress/Benefit: []Client responded well to session, was withdrawn at the beginning of session but then client became more engaged. Agreed with peers that it is important to have a balance of healthy internal and external coping skills to best prevent crisis. Client contributed as the group discussed the different categories of coping skills which included distraction, emotional release, grounding, self-love, and thought challenging. Provided an example of what helps client challenge negative thoughts. Client participated in creating a coping skills ?menu? for the five categories of coping skills. Client's coping skill menu included: watching TV, baking, 5-senses, setting boundaries, and setting an alarm to challenge distortions. Client appeared to benefit from increasing repertoire of healthy coping skills. Progress continues to be mild as client?s suicidality continues to be daily, but client is reporting increased use of healthy coping skills. Will continue IOP tx to prevent decompensation, challenge distortions, and further reduce self-harm. Narrative Note: []
--- NOTE | 2020-04-25 09:05 | BH.SGPN.GN ---
Behaviors/Verbalizations/Mental Status: [] Pt eye contact good, casually dressed, motor activity restless, speech normal rate and tone, mood depressed and agitated, throughout session pt had scowled eyebrows, affect could not be assessed because pt is wearing a mask due to requirements during COVID-19 pandemic, thoughts linear and intact, no evidence of delusions or hallucinations. Reviewed client?s symptom tracker, pt identified suicidal ideation as a 5/5 with 5 being severe, and a 2/5 for suicidal intention. Pt's baseline is 5/5 for suicidal ideation and 2/5 for suicidal intention. Pt future focused, stated would be at group on Saturday and stated looking forward to her vacation next week. Pt does not appear to be imminent risk to self or others. Client Response/Progress/Benefit: []Pt responded well to session AEB pt listening attentively to others and openly sharing thoughts and feelings. Pt reported her gameplan from last week was to bake something. Pt stated she accomplished her goal by baking brownies. Pt also accomplished goal from individual therapy of engaging in at least 3 self-care activities. Pt stated she isn't sure if the skills actually helped her because her mood didn't change to happy. With clarification from therapist about intent of using skills, pt could connect that using her skills helped her not engage in unhealthy skills as often. Pt could connect with idea that skills sometimes are to help her from going deeper into depression. Pt reported she utilized skills of opposite action, thought challenge, and identifying two positives every night. 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 Pt able to recognize that course could be triggering to her. Pt agreed she could choose a different CE, but will likely still go to this course. Progress noted with pt utilizing skills throughout weekend and being able to maintain progress. Pt continues to struggle with engaging in self-sabotaging behaviors that reinforce her depressive symptoms. Pt to continue IOP to increase consistent application of skills, decrease self-sabotaging behaviors, and prevent decompensation. Narrative Note: []
--- NOTE | 2020-04-25 10:13 | BH.SGPN.GN ---
Behaviors/Verbalizations/Mental Status: []Client alert and oriented, casual dress, hygiene tended to. Eye contact fair. Motor activity appropriate. Speech within normal limits. Affect unable to gather due to client wearing a mask for COVID protocol, mood dysthymic irritable. Thoughts linear, logical, no signs of hallucinations or delusions. Client Response/Progress/Benefit: []Client responded well to session, attentive throughout. Listening throughout group discussion defining conflict and the differences between internal and external conflict. Client was mostly quiet, but did share that avoiding conflict can lead to more conflict. Group reported the benefits of addressing conflict as well as identified and discussed consequences of not addressing conflict. Client attentive during psychoeducation of the different conflict resolution styles. Client reports her conflict style is avoiding which negatively impacts client?s mental health. Client stated ?I just stuff and stuff my emotions until I explode.? Progress noted as client has been able to prevent hospitalization since starting IOP, but her suicidal ideations continue to be daily and chronic. Will continue IOP tx to prevent hospitalization and increase healthy emotional regulation skills. Narrative Note: []
--- NOTE | 2020-04-25 11:13 | BH.SGPN.GN ---
Behaviors/Verbalizations/Mental Status: []Client alert and oriented, casually dressed and groomed. Eye contact fair, at times appearing to deflect eye contact. Motor activity appropriate. Speech within normal limits, quiet. Affect unable to gather due to wearing a mask for COVID-19 protocol, mood depressed and agitated. Thoughts linear, logical, no signs of hallucinations or delusions. Client Response/Progress/Benefit: []Pt engaged in session AEB listening attentively, though remaining mostly passive throughout. Pt participated during the activity in which participants were challenged to eliminate various items through group census. Pt attentive during discussion identifying conflict resolution skills used to complete the task, as well as additional skills for better managing conflict in daily life. Appeared to benefit from psychoeducation regarding impact of conflict on mental health and relationships. Listened as the group worked to identify healthy skills for conflict resolution. Pt identified giving herself time to ?cool off? as a skill she would like to try using when faced with potential conflict situations. Progress noted in pt increased use of internal coping skills though continues to struggle significantly with limited ability to challenge negative thoughts and often seeks reassurance and emotion validation from others which may impact ability to make consistent gains in tx. Will continue IOP tx to promote more consistent use of healthy coping skills, continue to improve emotion regulation and maintain safety, and prevent decompensation. Narrative Note: []
== END 2020-04-25 23:59 ==
LOC: BHIOP 09:00
PROVIDERS: Referring Provider Psychiatry & Neurology Psychiatry; Visit Provider Psychiatry & Neurology Psychiatry
DX: F33.2 Major depressive disorder, recurrent severe without psychotic features (principal); F43.10 Post-traumatic stress disorder, unspecified; Z79.899 Other long term (current) drug therapy; Z72.89 Other problems related to lifestyle
CPT/HCPCS: H0035; 90832; 90834; 90837; 90853

== ENCOUNTER 2020-04-26 08:55 | Outpatient (RCR) | payer BC, SELFPAY ==
[2020-04-26 00:42] VITALS: BP 144/92; PULSE 58; RESP 18
--- NOTE | 2020-04-26 12:00 | BH.MDN ---
Multi-Disciplinary Note - Note 45-min Individual Time Started:: 10:44 Date: 04/26/20 Purpose of session/treatment goals addressed:: The purpose of this session was to check-in with client following a voicemail client left indicating ?I?m really struggling today. Therapist worked with client to address current emotions, stressors, and negative thoughts. Another goal was to identify strategies to coping with current emotions in healthy ways and challenge distorted thoughts contributing to feelings of hopelessness. Additional topics included; assessing for SI and planning for safety. Symptoms/Behavior:: This counseling session was provided via telehealth using two-way, real-time interactive telecommunication technology between the patient and the clinician. The interactive telecommunication technology included audio and video. The patient was offered telehealth as an option for care delivery during the COVID-19 pandemic and consented to this option. Patient location: [place]. Provider located at [facility] Eye Contact:: Other - unable to assess as session completed via telehealth Motor Activity:: Slowed - unable to assess as session completed via telehealth Appearance:: Other - unable to assess as session completed via telehealth Speech:: Appropriate Mood:: Depressed Affect:: Other - unable to assess as session completed via telehealth Thoughts:: Linear, Logical, No evidence of hallucinations/delusions noted Staff Interventions:: Therapist used active listening and open-ended questions to explore client's current symptoms, stressors, and negative thoughts. Therapist assessed client?s SI and further assessed for current risk. Worked with client to create a safety plan she can use if experiencing increased depression or SI today. Therapist helped client challenge distortions reinforcing hopeless. Therapist worked with client to review healthy coping mechanisms that have helped in the past and identify areas in which client has made progress. Used IN techniques to encourage change behaviors. Provided supportive feedback and encouragement. Client Response:: Client called this morning andleft a message indicating she is really struggling today and would like a call back. This therapist returned client call to check-in and assess for risk. Client indicated struggling with gative thoughts regarding ongoing work related stressors and indicated it just feels like it's one thing after another. Discussed struggling with ongoing negative thoughts which often result in increased suicidal ideation. Denies any current active suicidal ideation, plan, or intent; however indicated struggling with thoughts of what if it gets too bad and I can't handle them anymore. Worked with therapist to review healthy coping skills she may utilize to maintain safety and manage chronic passive thoughts of without escalating to point of crisis. Client initially struggled in identifying healthy emotion regulation skills; however, with additional coaching identified going to the gym, reading a book, or sitting outside as skills that would improve her mood. Additionally, client did well to identify the benefits of tracking small moments she is able to enjoy herself or things that make her smile to help focus her mindset on positives and challenge negative/hopeless perspective. Reports willingness to track positives for the day and share these with this therapist when in IOP tomorrow. Pt reports she will be able to maintain safety tonight by following her coping plan created with this therapist and is willing to go to the local ED if feeling unable to maintain safety at anytime. Will continue to monitor. Risks/Concerns:: Client reports fleeting suicidal ideations last night, however denies any active SI, plan, or intent at time of phone call. Completed risk assessment with this therapist during session, and client indicates an ability to maintain safety, denies acute risk, and willing to complete a safety plan. Denies any plan or intent to harm self as well as denies any access to firearms or other lethal means. Future-oriented, reporting plans to go to the gym, spend time with her support Malcolm, and attend IOP tomorrow. Able to identify things she could do tonight to keep self-safe. Reports ability to go to ER should SI get worse and she feel like he cannot keep self safe. Progress Toward Goals/Plan:: Continued limited progress due to client ongoing chronic suicidal ideation. Client has made strides in implementing healthy coping skills and proactively addressing negative thoughts to prevent crisis escalation. However, continued distortions and limited consistent implementation of healthy skills has impacted client ability to make continued progress. Plan is to continue in IOP tx to stabilize and maintain safety, as well as continue to improve emotion regulation. Time Stopped:: 11:29
--- NOTE | 2020-04-27 10:12 | BH.SGPN.GN ---
Behaviors/Verbalizations/Mental Status: []Client alert and oriented, casually dressed and appropriately groomed. Eye contact fair. scowled eyebrows. Motor activity restless. Speech within normal limits. Affect could not be assessed due to pt wearing a mask as a requirement during COVID-19 pandemic. mood depressed and agitated. Thoughts linear, logical, no signs of hallucinations or delusions. Client Response/Progress/Benefit: []Client was a passive participant AEB client not contributing thoughts to discussion, however participated in activity. Client listened to the group discuss barriers that keep them stuck from choosing a healthier path to mental wellness. These barriers included: external stressors, comfort, lack of awareness, temptations, family and friends, and distortions. Group worked together to identify examples of personal pitfalls which included: depression, anxiety, lack of self-care, holding in emotions, avoidance, no motivation, and not communicating with supports. Engaged during the activity and did well to manage own emotions throughout. Benefited from increased awareness on the impact that pitfalls can have on mental health. Progress noted with being able to maintain safety and decrease alcohol consumption. However, pt continues to struggle with independently managing her suicidal and negative thought patterns, having an overreliance on external supports. Will continue IOP tx to decrease negative thinking, increase independent use of healthy coping skills, and prevent decompensation. Narrative Note: []
--- NOTE | 2020-04-27 11:11 | PCM.BH.PN_ITS ---
Progress Note Progress Note: History of Present Illness/Interim History: [] Patient is a 34-year-old female with a history of depression and possible bipolar disorder who is seen in follow-up at the [facility] behavioral health IOP program. I last saw the patient 3 weeks ago. The patient has made limited progress in the IOP program as per my discussions with staff members and on my own observation. She continues to call her therapist at the IOP program almost daily with concern for safety. She states that she is trying to do more positive thinking but she feels that due to her financial stress and worry about losing her full- time job and possibly getting dismissed from the she is unable to feel safe. Patient saw her outpatient psychiatrist yesterday and will see her again in another week or 2. She remains suicidal on a daily basis with a plan to overdose but she says she does not have access to large quantities of medication. The patient denies any self-harm by cutting in the past 6 weeks. However the patient does admit to self harming herself by overexercising on her knee that was recently surgically repaired. Patient also admits that she has some voices telling her to hurt herself. She does not recognize the voices and she does not feel that she will act on the voices. She denies any other hallucinations or delusions. The patient is looking forward to going on vacation next week leaving on Saturday. They changed their destination to [place] due to the COVID pandemic but she feels that she can just get away for a vacation that she will feel better able to deal with her issues. The patient was given the option of being admitted to the hospital but refuses admission at this time. Patient has decreased her alcohol use and only had 1 beer last week and has not drank yet during this week. The patient has been compliant with her medication. Current Psychiatric Medications: []'s asenapine or Saphris was increased to 20 mg p.o. sublingually at night (on this 5 weeks now and the dose was increased 1 to 2 weeks ago.); Trazodone 150 mg p.o. nightly Mental Status Examination: [] Patient is overweight female who is seen wearing a mask due to the pandemic. She appears normal for stated age and is casually dressed and groomed with good hygiene. Eye contact is good. She has no psychomotor agitation or retardation. Her speech is normal rate and rhythm and fluent with no pressure. Her mood is depressed. Her affect is constricted. Thought process is goal-directed and organized. Thought content: There is evidence of chronic passive and active suicidal ideation with a plan to overdose. There is evidence of hallucinations that are telling the patient to hurt herself. Impulsivity: High to moderate. Insight: Poor. Judgment: Limited. Diagnoses: [] Bonduel I: [] Major depressive disorder, recurrent, severe with psychosis; rule out bipolar, NOS; panic disorder; history of alcohol use disorder Bonduel II: [] Strong cluster B traits Bonduel III: [] Status post left knee replacement Bonduel IV:[]] Primary support and work issues Plan: [] Patient will continue the IOP program at [facility] as the structure, support, education individual, individual and group therapy will hopefully prevent worsening of the patient's symptoms which may require hospitalization. The patient very much wants to stay out of the hospital and really feels that if she is able to go on her vacation next week to [place] that she will begin improving. She felt safe during the interview and if at any time she does not feel safe she will let us know or go to the emergency room. The risk, options, possible complications and side effects of medication were discussed with the patient and she understands and accepts these. No medication changes were made today as the asenapine was recently increased. Patient understands that anytime she does not feel safe or deteriorates she does needs to call and we will have her admitted to the hospital. I will see the patient when she returns from vacation in follow-up.
--- NOTE | 2020-04-29 09:07 | BH.SGPN.GN ---
Behaviors/Verbalizations/Mental Status: []Client alert and oriented, neatly dressed and groomed- hair down today. Eye contact fair. Motor activity appropriate. Speech within normal limits. Affect unable to gather due to wearing a mask for COVID-19 protocol, mood depressed . Thoughts linear, logical, no signs of hallucinations or delusions. Reviewed client?s symptom tracker and client's scores were above baseline for risk of suicide. Client's individual therapist was notified. Client Response/Progress/Benefit: []Client responded well to session, appeared attentive and listening to feedback. However, client often disqualified ideas provided by peers on ways to cope in healthier ways. Client reports feeling hopeless and more suicidal this morning. Client shared she got official word that she is going to be kicked out of the . Client stated I knew it was coming, but I didn't think it would happen this fast. Client stated this news triggered increased suicidal ideations and urges to drink. Client reported she did not drink last night, but plans to while on vacation. Egg Smeller used motivational interviewing to help client see the consequences of drinking. Client reported she is aware of the consequences on client's mood and thinking, but could not identify alternatives to drinking. Client reported I really wish I was not going on vacation and shared she does not get along with some of the people going. Group and print producer offered ways to set boundaries and cope. Appeared to benefit from reaching out to support today rather than isolating or self-harming. Will discuss client's acuity with IOP tx team to determine if higher level of care is needed at this time. Narrative Note: []
--- NOTE | 2020-04-29 10:13 | BH.SGPN.GN ---
Behaviors/Verbalizations/Mental Status: []Client alert and oriented, casual dress, hygiene tended to. Eye contact fair. Motor activity appropriate. speech and tone WNL. Affect flat. mood dysthymic. Thoughts linear, logical, no signs of hallucinations or delusions. Client Response/Progress/Benefit: []Client was passive participant AEB client providing limited input however appeared to listen attentively to peers throughout session. The group worked together to identify barriers that keep one from choosing a new and healthier path to mental wellness which included: unhealthy habits, fear of failure, stigma, lack of supports, and negative thinking. Attentive during psychoeducation on the chapters of life. Client was attentive during discussion. Benefited from increased awareness and education on barriers to choosing new wellness paths and chapters of life. Progress continues to be stagnant with client reporting daily suicidal thoughts, difficulty with independently managing her distorted thoughts and continuing to report feeling depressed. Will continue IOP tx to increase consistent use of healthy coping skills, challenge distorted thoughts and prevent decompensation. Narrative Note: []
--- NOTE | 2020-04-29 11:16 | BH.SGPN.GN ---
Behaviors/Verbalizations/Mental Status: [] Client alert and oriented, casually dressed and grooming appropriate. Eye contact fair, often looking down at table. Motor activity appropriate. Speech within normal limits, quiet. Affect congruent though difficult to determine as client wearing a mask per COVID-19 protocol, mood depressed, irritable. Thoughts linear, logical, no signs of hallucinations or delusions. Client Response/Progress/Benefit: [] Client semi-engaged in session AEB listening to discussion, though continues to struggle with providing input and taking notes throughout. Client appeared attentive during discussion reviewing ?Chapters of my Life? poem AEB maintaining eye contact throughout. Client continues to struggle to identify how the various groups connect to her own life and often struggles with applying treatment skills and concepts discussed outside of treatment environment. Appeared to benefit from increased insight regarding what contributes to being in the various ?Chapters? in life and reviewing strategies for promoting continued progress and prevent regression. Progress limited due to client ongoing self-report of difficulties internalizing various treatment materials and self-care skills. Continues to struggle with self-deprecation and difficulties in challenging negative thoughts. Will continue IOP tx to prevent decompensation, maintain safety, and continue to promote healthy change behaviors. Narrative Note: []
--- NOTE | 2020-05-04 17:00 | BH.COMM ---
Communication Note - Communication with Client Communication Note: Client contacted the [facility] program for support in managing negative thoughts while on vacation. She spoke with this therapist and discussed struggling with increased negative thoughts over the past few days. Client noted that she has been able to manage these thoughts by sitting out by the pool, trying to read, or finding something to distract herself. Went on to note that today her negative thoughts are more intense and that she has been struggling with an increase in suicidal ideation as well. Client shared that she had been drinking liquor earlier in the afternoon and that she had her last alcoholic beverage approximately one hour ago. Client expressed passive thoughts of accessing her ukfcufa-nj-nyn?s gun which she noted is loaded and in his truck. Reports she does not have the keys to the truck but knows where they are stored. Client reports unwillingness to speak with her sister or [id number] about securing the weapon as she does not want them to associate juvenile court judge her. Client and therapist reviewed the risks of having access to lethal means while struggling with suicidal thoughts and under the influence. Client willing to review strategies for reducing potential access to lethal means and noted willingness to ride in a different vehicle for dinner as well as abstain from drinking the remainder of the evening. Reports an ability to maintain safety, willingness not to go near the truck where the weapon is stored, and is willing to seek emergency care at the local hospital or [facility] if unable to maintain safety at anytime. Client continues to report unwillingness to speak with her supports about securing the weapon, however. Client has a significant history of suicidal ideation, gestures, and prior attempts resulting in several psychiatric hospitalizations in the past year. She additionally has identified firearms as a potential method in the past. Given these risk factors as well as client self-report of being under the influence of alcohol, it was determined that client is at a high risk. Client emergency contact, her sister Nadia, will be reached to ensure client safety and secure the identified weapon to prevent access to lethal means. Will follow-up.
--- NOTE | 2020-05-09 09:05 | BH.SGPN.GN ---
Behaviors/Verbalizations/Mental Status: []Client alert and oriented, casual dress, hygiene tended to. Eye contact fair. Motor activity appropriate. Speech within normal limits. Affect flat, mood depressed. Thoughts linear, logical, no signs of hallucinations or delusions. Reviewed client?s symptom tracker, pt indicates a 5/5, with 5 representing severe, for suicidal ideation and a 4/5 for suicidal intent. IOP therapist will individually meet with pt to assess lethality. Client Response/Progress/Benefit: []Pt responded well to session AEB pt listening attentively to others and sharing thoughts and feelings. Pt stated her gameplan was to not drink when sad/depressed while on vacation. Pt reported while on vacation she failed on her goal one time by drinking to cope. Pt stated she was able to not drink the rest of the time she was gone. Pt stated she utilized the STOP technique to help her not drink the other days on vacation. Pt identified her stressors to include: going to lose her job and having to get out of the . Pt stated she was able to set boundaries with her dad which is something she usually doesn't do. Pt identified feeling anxious because of her stressors. Pt seemed to benefit from support from peers. Pt to continue IOP to increase use of healthy coping, decrease decompensation, and prevent decompensation. Narrative Note: []
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
--- NOTE | 2020-05-13 11:06 | BH.SGPN.GN ---
Behaviors/Verbalizations/Mental Status: []Client alert and oriented, neatly dressed and groomed. Eye contact good. Motor activity appropriate. Speech within normal limits. Affect unable to gather due to wearing a mask for COVID-19 protocol, mood dysthymic. Thoughts linear, logical, no signs of hallucinations or delusions. Client Response/Progress/Benefit: []Client was a semi-active participant in group discussion and provided insight on group topic. Attentive during psychoeducation on mindfulness coping skills and their impact on her mental health wellness. Client was able to identify self-soothing and mind-based coping skills she wants to incorporate into her current coping skills. Client reported she has been using deep breathing to help ground herself and would like to continue practicing this skill. Client shared she could also benefit from reading. Progress is limited as client returned to IOP today following an inpatient hospitalization. Client was more engaged than during her previous IOP admission and contributed to discussion. Will continue IOP tx to prevent decompensation, maintain safety, and increase emotional regulation skills. Narrative Note: []
== END 2020-05-09 14:40 | disposition short-term general hospital (02) ==
LOC: BHIOP 08:55
PROVIDERS: Referring Provider Psychiatry & Neurology Psychiatry; Visit Provider Psychiatry & Neurology Psychiatry
DX: F33.2 Major depressive disorder, recurrent severe without psychotic features (principal); F41.0 Panic disorder [episodic paroxysmal anxiety]; Z72.89 Other problems related to lifestyle; E66.3 Overweight; Z79.899 Other long term (current) drug therapy
CPT/HCPCS: H0035; 90834; 90853

== ENCOUNTER 2020-05-09 11:05 | Emergency (ER) | payer BC, SELFPAY ==
[2020-05-09 11:08] VITALS: BP 165/84; PULSE 81; RESP 15; TEMP 37.4; O2SAT 99; BMI 41.1
[2020-05-09 11:11] VITALS: BP 165/84; PULSE 80; RESP 15; O2SAT 99
--- NOTE | 2020-05-09 11:24 | ED.VIS.GEN ---
History of Present Illness Chief Complaint: Suicidal Narrative: Patient presents with suicidal ideations. She tells me she is going to take her truck and racquet, she is giving some vivid details about it although she has a quite flat affect about it. She has no cell ideations, she has no delusions or paranoia is at this time. Past Medical History - Allergies and Home Meds Allergies/Adverse Reactions: Allergies No Known Allergies Allergy (Verified 05/09/20 11:06) Primary Care Physician: Leslie Leonard,Out of [Primary Care Provider] - Past Medical History: - - Bipolar disorder, borderline personality disorder Smoking Status: Current some day smoker Review of Systems General: Denies: Fever Eyes: Denies: Visual changes - bilaterally ENT: Denies: Sore throat Cardiovascular: Denies: Chest pain Respiratory: Denies: Dyspnea Gastrointestinal: Denies: Abdominal pain, Nausea, Vomiting Genitourinary: Denies: Dysuria Musculoskeletal: Denies: Myalgias Skin: Denies: Rash, Abscess Neurological: Denies: Headache, Weakness Psych: Denies: Depression Hematologic: Denies: Easy bruising Physical Exam Vital Signs/Narrative: Vital Signs Temp Pulse Resp BP Pulse Ox 05/09/20 11:11 80 15 165/84 H 99 05/09/20 11:08 99.3 F H 81 15 165/84 H 99 General: - - She does not appear in any distress. She has a flat affect but allows me a physical exam. Negative for: No Acute Distress Head: Normocephalic ENT: Moist mucous membranes Cardiovascular: Regular rate, Regular rhythm Respiratory: No distress, CTA bilaterally Abdomen: Soft, Nontender Back: Nontender, Normal Inspection Extremities: Nontender, No edema Skin: Normal color, No rash Neurological: Alert, Normal Strength, Normal Sensation Psychological: - - Flat affect. Admits to suicidal ideations no homicidal ideations. Diagnostic/Tx/Re-eval - Medical Decision Making Patient will be medically cleared. I will call crisis for evaluation ED Disposition - Plan for ED Patient: Disposition: Acute Care Hospital - Other Diagnosis: Suicidal ideations Referrals: Leslie Leonard,Out of [Primary Care Provider] -
[2020-05-09 11:55] LABS: Absolute Lymphocyte Count 1.34 X10^3/uL (0.83-4.51); Basophil# 0.02 X10^3/uL; Basophil% 0.2 % (0-1); Eosinophil# 0.13 X10^3/uL; Eosinophils% 1.5 % (0-5); Hematocrit 38.2 % (37-47); Hemoglobin 13.1 g/dL (12.0-15.0); Lymphocyte # 1.34 X10^3/ul (4.0); Lymphocyte % 15.1 % (19-41); Mean Corp Hgb Conc 34.3 g/dL (32-36); Mean Corpuscular Hgb 31.3 pg (27.0-32.0); Mean Corpuscular Volume 91.4 fL (81-99); Mean Platelet Vol. 9.3 fl (6.2-12.0); Monocyte# 0.35 X10^3/uL; NRBC Flagged by Analyzer 0 % (0-5); Neutrophil # 6.98 X10^3/uL (2.7-7.7); Neutrophil % 78.7 % (47-70); POSITIVE MORPHOLOGY YES; Platelet Count 261 K/mm3 (150-450); RBC Distribution Width CV 12.3 % (11.6-14.6); RBC Distribution Width SD 41.1 fl (35.1-43.9); Red Blood Count 4.18 M/mm3 (4.2-5.4); White Blood Count 8.9 K/mm3 (4.4-11.0)
[2020-05-09 12:05] LABS: Internal QC Validated? YES +Cl - CLEAR BKGD; Pregnancy, Serum, hCG Quali. NEGATIVE Negative
[2020-05-09 12:09] LABS: Amphetamine Urine VISTA NEGATIVE (<1000 ng/mL); Barbiturate Urine VISTA NEGATIVE (< 200 ng/mL); Benzodiazepine Urine VISTA NEGATIVE (< 200 ng/mL); Cocaine Urine VISTA NEGATIVE (< 300 ng/mL); Ecstacy Urine VISTA NEGATIVE (< 500 ng/mL); Methadone Urine VISTA NEGATIVE (< 300 ng/mL); PCP Urine VISTA NEGATIVE (< 25 ng/mL); THC Urine VISTA NEGATIVE (< 50 ng/mL); Vista UDS pH Range 6
[2020-05-09 12:10] LABS: Anion Gap 6 (5-15); BUN 11 mg/dL (7-18); BUN/Creat Ratio 12.6 RATIO (10-20); Calcium,Total 8.8 mg/dL (8.5-10.1); Chloride 110 mmol/L (98-107); Creatinine, Serum 0.87 mg/dL (0.55-1.02); EST Glomerular Filtration Rate 80 mL/min (>60); Est Glom Filt Rate - Afr Amer 96 mL/min (>60); Estimated Creatinine Clearance 72.74 ml/min; Glucose 101 mg/dL (74-106); Potassium 3.8 mmol/L (3.5-5.1); Sodium Level 141 mmol/L (136-145)
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
[2020-05-09 12:22] LABS: Differential Indicated SCAN CRITERIA MET
[2020-05-09 12:23] LABS: Differential Comment SCANNED
[2020-05-09 12:34] LABS: Alcohol, Blood (Medical)-Serum < 3.0 mg/dL
[2020-05-09] MEDS: hydrOXYzine 50 MG/ML Vial IM (13:18)
--- NOTE | 2020-05-09 14:29 | CM.ED ---
SOCIAL WORK Referral faxed and called to [facility]. [facility] worker states beds available, will review referral and get back to this worker. Mikayla Posey, PRACTICE CLINICIAN, BOOKMAKER MAP
[2020-05-09 15:10] VITALS: BP 139/72; PULSE 66; RESP 16; O2SAT 96
--- NOTE | 2020-05-09 15:32 | CM.ED ---
SOCIAL WORK COVID-19 results faxed to [facility].
--- NOTE | 2020-05-09 15:46 | CM.ED ---
SOCIAL WORK Nurse updated this worker, patient reported to delon that she is having increased thoughts of suicide and if she had the energy to kill herself she would. This worker met with patient earlier and discussed plan of care and plan for hospitalization. Patient was requesting safety plan to her sister's home. Informed patient [place] has been completed and referral has been made to [facility]. GIORGI Morse, CARDIOLOGY SPECIALIST
--- NOTE | 2020-05-09 16:01 | CM.ED ---
SOCIAL WORK Call to [facility] to inquire about status of referral. Spoke with charge nurse, Renae. Per Renae, will discuss case with Dr. Correia and get back to this worker. Mikayla Posey, ELECTRICITY TRADER, OCCUPATIONAL THERAPY DIRECTOR
[2020-05-09 16:09] VITALS: RESP 16
--- NOTE | 2020-05-09 16:34 | CM.ED ---
Addendum entered by Nadia Posey 05/09/20 16:36: Patient updated on acceptance to [facility]. Original Note: SOCIAL WORK Received call back from Renae with [facility]. Per Renae, patient has been accepted by Dr. Correia. Renae to call this worker back with accepting information. Requesting [place] [facility] be faxed at this time. [place] faxed. Mikayla Posey, JEWELRY CASTING MODEL MAKER, FOOD COUNTER WORKER
--- NOTE | 2020-05-09 17:28 | CM.ED ---
SOCIAL WORK Call to [facility] to verify [place] received and obtain additional accepting information. Unable to reach charge nurse at this time. Awaiting call back. Mikayla Posey, RIGGING LOFT MECHANIC, AGRICULTURAL COMMODITIES GRADER
--- NOTE | 2020-05-09 17:44 | CM.ED ---
SOCIAL WORK Spoke with Renae, charge nurse with [facility]. Per Renae, awaiting room number from staff. Will call this worker back with room number and number for report for patient. Requesting transportation be set up after room number received. Staff anette. Mikayla Posey MSW, YARD ASSISTANT
--- NOTE | 2020-05-09 18:06 | CM.ED ---
SOCIAL WORK Received call back from Renae with [facility]. Patient was accepted by Dr. Correia. Nurse provided with room number and number for report. [facility] to set up transport. Mikayla Posey, RADIO TELEVISION ANNOUNCER, POLICE SERGEANT
--- NOTE | 2020-05-09 18:10 | ED.RN ---
[facility] called for transport eta 25-30 mins
[2020-05-09 18:16] VITALS: BP 137/83; PULSE 76; RESP 16; TEMP 36.8; O2SAT 97
[2020-05-09 18:28] VITALS: BP 137/83; PULSE 76; RESP 16; TEMP 36.8; O2SAT 97
== END 2020-05-09 18:58 | disposition short-term general hospital (02) ==
PROVIDERS: Emergency Provider Emergency Medicine
DX: R45.851 Suicidal ideations (principal); F31.9 Bipolar disorder, unspecified; F60.3 Borderline personality disorder; Z79.899 Other long term (current) drug therapy; F17.200 Nicotine dependence, unspecified, uncomplicated
CPT/HCPCS: 80048; 80307; 80320; 84703; 85025; 87635; 96372; 99284; C9803; G0480; U0003

== ENCOUNTER 2020-05-13 09:00 | Outpatient (RCR) | payer BC, SELFPAY ==
--- NOTE | 2020-05-13 10:05 | BH.SGPN.GN ---
Behaviors/Verbalizations/Mental Status: []Client alert and oriented, casually dressed and groomed. Eye contact good. Motor activity appropriate. Speech within normal limits. Affect unable to gather due to wearing mask per COVID-19 protocol, mood depressed. Thoughts linear, logical, no signs of hallucinations or delusions. Client Response/Progress/Benefit: []Client was an active participant AEB providing input during discussion and listening attentively to others. Contributed to discussion of the quote and stated ?doing scary things is usually not very pleasant and we typically want to run.? Did well to identify benefits of sitting with the uncomfortable and facing anxieties rather than ?running?. Client connected with discussion on the difference between ?normal? anxiety and when anxiety becomes problematic. Gained awareness of personal physical symptoms of anxiety which included: chest pain, feeling jittery, and racing heart. Client also identified common negative or anxious thoughts she has used when experiencing anxiety which included: self-doubting, catastrophizing, and overgeneralizing. Client appeared to benefit from gaining insight to physical signs of anxiety and common cognitive symptoms as well. Progress noted in increased engagement since last attending IOP program, though continues to struggle in this area. Will continue IOP to increase healthy coping skills, challenge distorted thoughts, and maintain safety. Narrative Note: []
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
--- NOTE | 2020-05-13 16:49 | BH.MTP ---
[facility] Treatment Plan - Patient Information Program Physician:: Dr. Monsivais Primary Therapist:: Wendy Quintanilla, [facility] - Psychiatric Diagnoses Psychiatric Diagnoses:: Major depressive disorder, recurrent, severe without psychosis; panic disorder; history of alcohol use disorder; strong cluster B traits Diagnosis Code(s):: F33.2 - Estimated LOS Estimated LOS (in weeks):: 4 Problem/Goal #1 - Problem/Goal #1 Stated Goal:: Client will improve mood management and reduce suicidal ideations, feelings of hopelessness, and anger outbursts due to Major Depressive Disorder through Intensive Outpatient Program. Description of Barriers: Distorted thought patterns, trauma triggers while at work, additional work stressors, negative view of self, self-sabotage, limited social support and chronic suicidality. Functional Impact: Pt has been hospitalized 5 times since August 2019 for suicidal ideation. Pt's most recent hospitalization for suicidal ideation with plan was from 05/09/20-05/11/20. Pt on a reduced schedule due to mental health symptoms interferring with her ability to be at work full-time. Pt's mental health impacts her ability to form and maintain healthy relationships. Pt not functioning at baseline. - Objectives Objective #1 Stated Objective: Client will identify and replace 2-3 negative thinking patterns that reinforce depressive symptoms. Interventions: Assist the client in identifying, challenging, and replacing dysfunctional thoughts with positive self-enhancing thoughts. Discharge Criteria: Client will have achieved this goal when can identify at least 2 negative thinking patterns, replace thoughts with rational thoughts, and combat suicidal ideation.? Target Date: 06/17/20 Review Date: 06/10/20 Objective #2 Stated Objective: Pt will decrease depressive symptoms AEB pt?s score on the DSM 5 cross-cutting measure and improve pt?s daily functioning. Interventions: Through groups and individual therapy, pt will be provided with education on cognitive distortions, mistaken beliefs, and identifying and combating negative self-talk. Therapist will assist pt with getting back into the activities she once enjoyed as well as increasing healthy coping strategies. Discharge Criteria: Pt will have met this goal when pt?s score on the DSM 5 cross cutting measure for depression has been decreased and per pt?s report daily functioning has improved. Target Date: 06/17/20 Review Date: 06/10/20 Problem/Goal #2 - Problem/Goal #2 Stated Goal:: Stabilize anxiety level while increasing ability to function on daily basis. Description of Barriers: Distorted thought patterns, trauma triggers while at work, additional work stressors, negative view of self, self-sabotage, limited social support and chronic suicidality. Functional Impact: Pt has been hospitalized 5 times since August 2019 for suicidal ideation. Pt's most recent hospitalization for suicidal ideation with plan was from 05/09/20-05/11/20. Pt on a reduced schedule due to mental health symptoms interferring with her ability to be at work full-time. Pt's mental health impacts her ability to form and maintain healthy relationships. Pt not functioning at baseline. - Objectives Objective #1 Stated Objective: Client will learn and apply 2-3 coping strategies to use when feeling overwhelmed or anxious. Interventions: Therapist will help client process triggers to increased symptoms, and then identify ways to manage these feelings and thoughts. Therapist will also work on helping client feel less isolated and understand better behaviors and escalating tendencies. Discharge Criteria: Client will have met this goal when can safely use 1-2 coping strategies when feeling overwhelmed or anxious. Target Date: 06/14/20 Review Date: 06/10/20 Objective #2 Stated Objective: Pt will decrease anxious symptoms AEB pt?s score on the DSM 5 cross-cutting measure improve pt?s daily functioning. Interventions: Through groups and individual therapy, pt will be provided education about anxiety?s impact on body and common physiological reaction to anxiety. Therapist will teach pt appropriate breathing techniques and build healthy coping skills to manage daily anxieties. Discharge Criteria: Pt will have met this goal when pt?s score on the DSM 5 cross cutting measure for anxiety has been decreased and per pt?s report daily functioning has improved. Target Date: 06/14/16 Review Date: 06/10/20
--- NOTE | 2020-05-17 09:00 | BH.SGPN.GN ---
Behaviors/Verbalizations/Mental Status: [] Eye contact is good. Motor activity is appropriate. Appearance is neat. Speech is Appropriate. Mood is depressed. Affect is flat. Thoughts are linear and logical. No evidence of psychosis. Reviewed daily check in sheet and pt reports 4/5 for suicidal ideations and 2/5 for intent. This is pt's baseline. Client Response/Progress/Benefit: [] Pt spoke when prompted. Shared that she continues to set the alarm on her phone throughout the day to remind herself to challenge her negative thoughts and to identify something positive. States I need to remind myself of the positives. Had a difficult conversation regarding her career on Saturday night. Admits that she was depressed and immediately thought of ways to escape or self-sabotage. She called her sister to bring her alcohol over to her house. After the alcohol arrived pt had insight that she was attempting to self-sabotage and that drinking would only make her thoughts and situation worse. She decided to do opposite-action and called support and went to a local event. States It was the first time I've laughed and had fun in awhile. Insight into the benefits of her decision-making. Group praised her for utilizing skills. Pt continues to struggle with her negative thoughts throughout the day however does report being more motivated and invested in making changes. Progress noted. Benefited from group support, encouragement, and feedback. Will continue in IOP to maintain safety, prevent decompensation, and increase healthy coping. Narrative Note: []
--- NOTE | 2020-05-17 10:17 | BH.SGPN.GN ---
Behaviors/Verbalizations/Mental Status: []Client alert and oriented, neatly dressed and groomed. Eye contact good. Motor activity appropriate. Speech within normal limits. Affect unable to gather due to wearing a mask for COVID-19 protocol, mood depressed and apathetic. Thoughts linear, logical, no signs of hallucinations or delusions. Client Response/Progress/Benefit: []Client responded well to session, attentive and engaged throughout discussion and activity. Client appeared to connect with the topic of fear of failure. Client reported when she has experienced failure, client labeled herself a failure. Client connected with the concept that mindset is powerful in determining how a person moves forward after failing. Client shared ?failures can be learned from.? Group reported fear of failure can lead to depression, quitting, low self-esteem, and staying stuck. Client stated although failure initially is difficult to overcome, she agrees with peers that one can challenge their perspective and get better at navigating vulnerable situations such as failure. Client appeared to benefit from gaining awareness of the impact of fear of failure can have on one?s mental health and wellbeing. Progress noted as client reported not engaging in unhealthy coping skills this weekend. Will continue IOP tx to prevent decompensation, maintain safety, and increase the use of healthy coping skills. Narrative Note: []
--- NOTE | 2020-05-17 11:15 | BH.SGPN.GN ---
Behaviors/Verbalizations/Mental Status: []Client alert and oriented, casual appearance. Eye contact good. Motor activity appropriate. Speech within normal limits. Affect unable to gather due to wearing a mask for COVID-19 protocol, mood dysthymic. Thoughts linear, logical, no signs of hallucinations or delusions. Client Response/Progress/Benefit: []Client responded well to session, more engaged and actively participating than in prior sessions. Client completed the fear of failure worksheet and reported that fear of failure has kept client from ?getting a better mentality?. Client able to identify barriers that reinforce personal fear of failure which included: distorted thoughts, past failures, convincing myself it won?t work, unhealthy relationships, and unrealistic expectations. Client attentive during discussion of the different strategies to help overcome fear of failure. Identified personal strategies to include: opposite action, continuing to try, thought challenging, self-care, and reminding herself of her own motivation. Client reported past failures have taught client that ?you don?t have to let it define you?. Client appeared to benefit from learning ways to overcome fear of failure. Will continue IOP tx to reinforce healthy coping skills, continue to improve ability to manage emotions, and maintain stability. Narrative Note: []
--- NOTE | 2020-05-18 09:45 | BH.NA_ITS ---
Physical Data - Vital Signs Pulse Rate: 74 Blood Pressure: 115/76 - Height/Weight Height: 1.6 m Weight:: 92.986 kg Weight in Pounds: 205.0 lbs Current Medication Compliance - Medication Compliance Do you take your medication as prescribed?: Yes - usually Nutritional History - Appetite Nutritional Instructions:: If client shows signs of a swallowing problem, weight change of 10 pounds or more in the last month, or is on a diabetic diet, the physician will review and request a dietitian consult, as appropriate. All unintentional weight loss will be referred to the physician for decision on need for dietitian consult. Describe your appetite:: Fair Functional Assessment - Sleep Pattern Describe any problems with sleeping: Client states her sleep varies, states she has not been sleeping much at night recently. - Activities Motor Activity:: Hyperactivity Comments:: tapping foot during assessment Sensory/Communication Assess - Communication Problems Do you have difficulty understanding what people are saying?: No Medical Problems/History - Musculoskeletal Conditions Musculoskeletal: Other (See comments) Comments:: parital knee replacement in 2019 due to history of left knee injury Surgical History - Surgical History Have you had any surgeries? If so, list type and date:: Yes - parital knee replacement 2019, carpal tunnel x2, T&A Substance Abuse - Substance Abuse Please describe substance abuse in the last 30 days:: Client states she has been sober from alcohol for 2 weeks. Client states she is trying to quit drinking completely, but wants to drink. Client has taken medication in the past to help with drinking cessation but states she did not like it and stopped taking it. Client reports smoking cigars on occasion. Client reports some marijuana use 14+ uears ago before she was in the . Client states she drinks 2-4 cans of Pepsi per day and drink 2-4 Spark energy drinks per day. Client reports she is trying to cut back on caffiene use. Mental Status Summary - Mental Status Significant Findings/Observations on Appearance and Mood:: Client is alert and oriented x4. Client is casually groomed. Client is wearing a mask due to COVID19 pandemic. Client makes fair eye contact. Clients voice normal volume. Client appears moderately depressed and anxious during assessment and tearful. Client states her SI is fleeting, stating she is usually able to talk herself out of it. Client denies suicidal plan this date. Denies delusions/hallucinations. Suicide Assessment - Suicidal Ideation Are you currently or have you been suicidal in the past?: Yes - fleeting suicidal thoughts, denies plan at this time Suicidal Intentional Rating Scale (SIRS): Suicidal thoughts (past) Physician Notification: If Active suicidal thoughts/Will not contract for safety is checked, contact physician and document in the Physician Notification section below. Past Psychiatric History - MH Treatment Hx Past Psychiatric Medications:: Client states she does not know the names of past medication. Age of first mental health symptoms: Client states she was diagnosed with depression in April 2019, and diagnosed with PTSD and anxiety this year. Client states that since her last admission to [facility], her psychiatrist Dr. De León has diagnosed her with bipolar 1. Describe (age, circumstance, etc) any past hospitalizations: Client has been hospitalized 5 times this year for mental health, last admission 05/09-05/11 of this year for suicidal ideations at [facility]. Current providers for mental health treatment (counselor, psychiatrist, case therapist, etc.): Dr. De León and Shamir as therapist at [facility]. Fall Risk Assessment - Age Age: Less than 60 - Mental Status Mental Status: Willing & able to ask for assistance when needed - Physical Status Physical Status: No problems - Impairments Impairments: None - Elimination Elimination: Continent AND independent - Gait or Balance Gait or Balance: Walks independently - Hx of Falls History of falls in the past 6 months: No known history - Medications/Substances Psychotropics:: Mood stabilizers Medications/substances used within the past 24 hours or ordered to administer: 1-2 of the medications/substances listed above - Total Score Total Points:: 1 RN Summary of Impressions - Impressions Recommendations: Include psychiatric and medical issues, treatment planning recommendations, and discharge planning needs. Impressions: Psychiatric Issues: major depressive disorder, recurrent, severe without psychosis. Panic disorder. History of alcohol use disorder. - Level of Care How do the client's current symptoms and functional deficits support need for this level of care?: Client was in [facility] earlier this month and went to the ER for suicidal ideations. Client was hospitalized from 05/09-05/11 at [facility] in [place]. Client has now returned to the program. Client has continued fleeting SI, denies plan at this time. Client reports feelings of anhedonia. Client reports stress from her mental health causing issues at work. [facility] will promote gains and prevent further decompensation while providing social support and skills training.
[2020-05-18 10:02] VITALS: BP 115/76; PULSE 74
--- NOTE | 2020-05-18 10:15 | BH.SGPN.GN ---
Behaviors/Verbalizations/Mental Status: [] Eye contact is good. Motor activity is appropriate. Appearance is casual. Speech is Appropriate. Mood is depressed. Affect is flat. Thoughts are linear and logical. No evidence of psychosis. Client Response/Progress/Benefit: [] Client responded well to session, engaged and participated more than in the past. Client connected with the quote and discussed the difference between ruminating and reflecting for growth with group members. Client helped group identify the importance of change. Group also identified barriers keeping clients from changing. Participated in the discussion and psychoeducation on the different zones of change. Client described her comfort zone as ? isolation ? which keep her from reaching out to family, trying new things, and making changes. Appeared to benefit from gaining awareness of the benefits of change as well as the different zones of change. Will continue in IOP to maintain safety, prevent decompensation, and increase healthy coping skills. Narrative Note: []
--- NOTE | 2020-05-18 11:20 | BH.SGPN.GN ---
Behaviors/Verbalizations/Mental Status: []Client alert and oriented, casually dressed and groomed. Eye contact good. Motor activity appropriate. Speech within normal limits. Affect unable to gather due to client wearing a mask as part of COVID-19 protocol. mood depressed. Thoughts linear, logical, no signs of hallucinations or delusions. Client Response/Progress/Benefit: []Client was engaged throughout AEB contributing to discussion and sharing her worksheet. Client reported staying her in comfort zone has kept client from setting boundaries and reaching out to more supports. Client identified three small goals to get client out of her comfort zone which included: setting boundaries with her father, practicing more self-care, and reaching out to one new support. Client identified her barriers to be: feeling like a burden, lack of time, and fear of standing up to her father. Client shared she would like to first work on reaching out to a friend and plans to do this by texting. Client shared she can hold herself accountable by setting a deadline. Appeared to benefit from psychoeducation and working with the group to brainstorm strategies for improving personal accountability. Progress limited as client continues to struggle with chronic SI, but client has been contributing more during group sessions. Will continue IOP tx to prevent decompensation, maintain safety, and increase coping skill application. Narrative Note: []
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
--- NOTE | 2020-05-18 11:50 | BH.PSY.EVA_ITS ---
Initial Treatment Plan - Patient Information Visit Information: ADMISSION DATE: EXPECTED LOS: 4-6 weeks - Problems/Symptoms Problem #1:: Depression Symptom:: Sadness, hopelessness, suicidal ideation, decreased concentration, fa tigue Problem #2:: Anxiety Symptom:: Rumination, panic attacks, restlessness, biological disruption of sleep
--- NOTE | 2020-05-18 14:15 | BH.MDN_ITS ---
Multi-Disciplinary Note - Note 45-min Individual Time Started:: 12:15 Date: 05/18/20 Purpose of session/treatment goals addressed:: Purpose of session was to assess pt's current symptoms and stressors. Other topics included processing recent stressor with work and help pt identify ways to decrease self-sabotage. Eye Contact:: Fair, Intense - at times Motor Activity:: Appropriate Appearance:: Casual Speech:: Appropriate Mood:: Depressed Affect:: Flat Thoughts:: Logical, Circular, No evidence of hallucinations/delusions noted Staff Interventions:: Therapist utilized open-ended questions to elicit patient's current symptoms and stressors. 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 Provided support by validating patient's emotions. 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 Therapist assisted patient with identifying behaviors to avoid in order to decrease self sabotage. 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 Patient reported she had a discussion with the certified vehicle fire investigator on Saturday that did not go well. Patient stated the conversation with the certified vehicle fire investigator made her believe she is not going to get the job because he had mentioned her mental health again. Patient reported she wanted to drink alcohol after this meeting because I had a lot of emotions so needed to cope. Patient reported she was able to stop herself from drinking by reminding herself of the consequences. 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 Client stated she coped with this news by hanging out with 1 of her friends and using positive distractions. Patient identified now that she knows she is not going to get the job she is going to move forward with applying for disability and plans to appeal the decision through the of being discharged due to believing she is unfit. Patient identified work has been stressful because she does not feel like others like her. Patient seem to connect with therapist challenging patient on whether she walks in to work already looking for things to make her upset. Patient recognized her mood can result in her being more abrasive towards coworkers which leads them to not want to be around her. With assistance from therapist patient identified to avoid self-sabotage she needs to avoid drinking and not pointing out other peoples screw ups the first thing in the morning when she gets to work. Risks/Concerns:: Pt has chronic suicidality with ideas and intent. Pt able to plan for safety. Future focused. Denies access to firearms. Friend keeps pt's medications at his house. Pt agreeable to go to nearest emergency room or call 911 if feels unable to maintain safety. Progress Toward Goals/Plan:: Progress noted with pt stating she is using positive thinking and opposite action. Pt continues to struggle with suicidal thoughts, difficulty using skills independently and self-sabotaging behaviors. Pt is to continue IOP level of care to challenge distorted thoughts, increase healthy coping and prevent decompensation. Time Stopped:: 13:00
--- NOTE | 2020-05-19 09:05 | BH.SGPN.GN ---
Behaviors/Verbalizations/Mental Status: []Client alert and oriented, casual dress, hygiene tended to. Eye contact fair. Motor activity appropriate. Speech within normal limits. Affect could not be assessed due to pt wearing a face mask as requirement of COVID-19. mood euthymic. Thoughts linear, logical, no signs of hallucinations or delusions. Reviewed client?s symptom tracker, pt identifies a 5/5, with 5 being severe, for suicidal thoughts. Pt identifies a 4/5 for suicidal intent. Pt has chronic daily suicidal thoughts. Pt future focused, able to identify positives and receptive to feedback from peers and therapist. Pt does not appear to be imminent risk to harm self or others. Client Response/Progress/Benefit: [] Patient responded well to session as evidenced by patient listening attentively to others and sharing thoughts and feelings. Patient stated her game plan for yesterday was to dump her alcohol and evaluate if she should go to the gym. Patient reported she chose to not go to the gym because she was worried she would not be able to stop her self from overworking her need to the point of self-harm. Patient stated she was able to accomplish the goal of dumping her alcohol. Patient reported she understands the importance of not having alcohol in her possession. Patient identified mental positive as taking her new medication and giving it to her friend to keep the extra medication pills so she does not have the impulse to take all her medications. Patient identified another positive as sending a coworker home instead of going off on them. Client notified her current stressors are work and getting a second opinion on her knee to see if something is broken within her knee replacement. Patient continues to struggle with suicidal ideation and has difficulty identifying healthy skills independently often needing external assistance. Patient to continue IOP level of care to decrease suicidality, increase use of healthy coping skills independently, and prevent decompensation. Narrative Note: []
--- NOTE | 2020-05-19 10:16 | BH.SGPN.GN ---
Behaviors/Verbalizations/Mental Status: []Client alert and oriented, neatly dressed and groomed. Eye contact fair. Motor activity appropriate. Speech within normal limits. Affect unable to gather due to wearing a mask for COVID-19 protocol, mood dysthymic. Thoughts linear, logical, no signs of hallucinations or delusions Client Response/Progress/Benefit: []Client was an active participant in group discussion, providing input throughout. Client worked with peers on defining goals and brainstormed with the group the benefits of goal setting which included: increased motivation, sense of accomplishment, increased confidence, growth, and ?staying on track.? Client helped group discuss the barriers that keep people from either setting goals are following through with goals. Client gave examples of fear of success, urges to quit, and ?fear of who we will be once we accomplish goals? as barriers to following through with goals. Able to provide feedback during psychoeducation on SMART goals. Client appeared to benefit from learning the mental health benefits of setting goals that are SMART. Will continue IOP tx prevent decompensation, maintain safety, and improve distress tolerance skills. Narrative Note: []
--- NOTE | 2020-05-19 11:19 | BH.SGPN.GN ---
Behaviors/Verbalizations/Mental Status: []Eye contact is fair to good. Motor activity is appropriate. Appearance is . Speech is Appropriate. Mood is depressed. Affect unable to gather due to wearing a mask as COVID protocol. Thoughts are linear and logical. No evidence of psychosis Client Response/Progress/Benefit: []Client was engaged during discussion, did well to complete activity and process with the group. Client was willing to complete the worksheet in which she was challenged to develop a personal SMART goal. Client chose the goal; to engage in a self-care activity at least once a day for one week. When asked why this goal was important and beneficial to client's mental health, she initially struggled but responded well to feedback from the group. Client stated her goal will reduce focus on the negative and help to begin combating suicidal ideation. Identified the following barriers to completing this goal which included: time, lack of motivation, and poor boundaries. Identified solutions to barriers which included: implement firmer boundaries, accountability from a friend, and identifying small self-care tasks she can complete when also doing other tasks. Benefited from this group by developing a short-term SMART goal related to mental health. Will continue IOP tx to prevent decompensation, improve daily functioning, and increase mood stability. Narrative Note: []
--- NOTE | 2020-05-23 10:15 | BH.SGPN.GN ---
Behaviors/Verbalizations/Mental Status: []Client alert and oriented, casual dress, hygiene tended to. Eye fair. Motor activity tense. Speech within normal limits. Affect constricted. mood dysthymic. Thoughts linear, logical, no signs of hallucinations or delusions. Client Response/Progress/Benefit: []Pt responded well to session AEB contributing to discussion. Pt appeared to connect well with the topic of resilience AEB nodding when others mentioned being flexible with change will help you move forward in life. Pt worked with the group during discussion of the costs of resisting change and the benefits of adapting to adversity. Group identified costs of resisting change included: staying stuck, difficulty managing crises, increased depression, increased anxiety, and decrease in self-care. Attentive during psychoeducation on various cuba factors in developing personal resilience. Pt contributed during group discussion identifying benefits of each factor in fostering resilience. Pt seemed to benefit from increasing awareness of strategies to increase personal resilience and the impacts of resilience on managing mental health sx. Progress noted in pt?s reduced suicidal ideations. Will continue IOP tx to promote the use of healthy coping skills, maintain safety, and prevent decompensation Narrative Note: []
--- NOTE | 2020-05-23 11:15 | BH.SGPN.GN ---
Behaviors/Verbalizations/Mental Status: []Client alert and oriented, casually dressed and groomed. Eye contact good. Motor activity appropriate. Speech within normal limits-engaging in side conversations at times. Affect unable to gather due to client wearing a mask for COVID-19 protocol, mood irritable. Thoughts linear, logical, no signs of hallucinations or delusions. Client Response/Progress/Benefit: []Client engaged participant as evidenced by client providing input throughout discussion and listening attentively to peers. However, client was engaging in side conversations at times which was distracting to peers. Client attentive in the discussion of how each resiliency component can help increase personal resiliency. Client identified current resiliency traits she currently possesses and then identified what trait she would like to improve. Client reports belief she has been using the resiliency traits of moving towards her goals and accepting that change is a part of living. Client reported she learned some of these traits growing up, but client has also had to reframe them for herself. Client stated she would like to work on self-awareness. Client reported she will do this by spending five minutes today practicing her 5-senses and writing down her triggers. Client appeared to benefit from increasing insight to ways in which client can improve resilience to adversity and daily stressors. Client to continue IOP tx as client continues to struggle with emotional dysregulation that impacts her work and social functioning. Narrative Note: []
--- NOTE | 2020-05-25 09:05 | BH.SGPN.GN ---
Behaviors/Verbalizations/Mental Status: []Client alert and oriented, well groomed and neatly dressed. Eye contact good. Motor activity appropriate. Speech within normal limits. Affect unable to gather due to wearing a mask for COVID-19 protocol. Mood irritable and depressed. Thoughts linear, logical, no signs of hallucinations or delusions. Reviewed client?s symptom tracker, risk for suicidal ideation is within client's baseline. No plan or intent as of 05/25/20. Client Response/Progress/Benefit: []Client responded well to session, receptive to feedback. Client reports feeling ?hopeless? this morning because ?yesterday was a rough day.? Client shared her boss from the met with client yesterday and was very blunt about client getting let go from her job. Client stated ?I knew it was coming, but it sucks.? Client?s gameplan from last session was to practice self-awareness and client did this by dumping the alcohol in her house to prevent self from drinking. Client also watched TV, read, and did a word search to cope. Appeared to benefit from gaining feedback from peers and challenging her perspective in the moment. Progress continues to be limited due to client?s ongoing chronic SI and self-report of self-sabotaging behaviors. Will continue IOP tx to prevent decompensation and maintain safety. Narrative Note: []
--- NOTE | 2020-05-25 10:22 | BH.SGPN.GN ---
Behaviors/Verbalizations/Mental Status: [] Client alert and oriented, casual dress, hygiene tended to. Eye contact good. Motor activity appropriate. Speech within normal limits, quiet. Affect could not be assessed due to pt wearing a face mask as precaution against coronavirus. Mood depressed. Thoughts linear, logical, no signs of hallucinations or delusions. Client Response/Progress/Benefit: []Pt receptive of session, remained an active participant AEB providing input and taking notes throughout. Appeared to connect with topic of healthy decision making and worked with group to identify factors that can lead to being on an unhealthy decision-making path. Group identified factors to include stubbornness, ignoring warning signs, not asking for help out of fear of judgement, habit, and fear of the unknown. Group was provided with the ?Chapters of My Life? handout exploring how our decisions can contribute to the different life paths or ?chapters? we my be on. Pt engaged throughout processing discussion and willing to reflect upon which chapter she is currently in and what factors are preventing her from moving to the next chapter in life. Pt identified being in chapter 2.5 and that making justifications for self-sabotaging or unhealthy coping has kept her from moving to a healthier chapter. Appeared to benefit from gaining insight into her own personal barriers impeding mental health progress. Progress noted in pt increased engagement and reports of improved use of healthy coping behaviors. Continues to struggle with consistent independent skill application. Pt to continue IOP tx to prevent decompensation, promote healthy change behaviors, and improve coping repertoire. Narrative Note: []
--- NOTE | 2020-05-25 11:08 | PCM.BH.PN ---
Progress Note Progress Note: History of Present Illness/Interim History: [] Patient is a 34-year-old female with a history of depression who is seen in follow-up at the [facility] behavioral health IOP program. I last saw the patient 1 week ago and she states today that she feels the program is benefiting her. She feels supported and she feels she is learning new skills that she is trying to use to help deal with her stressors. 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 However she is worried that even hearing notifications on her notification device about other calls that she has not been on may trigger some PTSD symptoms. Discussed with the patient that she should turn off any notifications when she is not on duty. Patient states she still wants to work at this EMT job because she enjoys it and likes helping people. She is sleeping about 6 hours a night but tosses and turns at times. Still has passive fleeting suicidal ideation but denies any active suicidal ideation. She denies any hallucinations lately. She is worried that she is going to lose her job and has been told by her current boss that she will lose her main job. She applied for another job but did not get this job. She denies any cutting but does still over exercise at times on her knee. She drinks 2 beers 3 nights ago but no other alcohol use since last visit. Current Psychiatric Medications: [] Unchanged from last visit. She is to increase her Lamictal to 50 mg p.o. nightly starting tomorrow. Mental Status Examination: [] Patient is an obese female who is seen wearing a mask due to the pandemic. She has no psychomotor agitation or retardation. She is casually dressed and groomed with good hygiene. She has good eye contact and her speech is normal rate and rhythm and fluent with no pressure. Her mood is depressed. Her affect is constricted. Her thought processes goal-directed and organized. Thought content: There is still evidence of passive fleeting suicidal ideation. No evidence of active suicidal ideation, hallucinations or delusions. Impulsivity is moderate to high always. Insight is limited. Judgment is limited but grossly intact. Diagnoses: [] [place] I: [] Major depressive disorder, recurrent, severe without psychosis; panic disorder; history of alcohol use disorder [place] II: [] Strong cluster B traits [place] III: [] Knee replacement left knee in past. [place] IV:[]]Primary support, work issues Plan: [] Patient will continue the IOP program at [facility] as the structure, support, education, individual and group therapy will hopefully prevent worsening of the patient's symptoms which might require hospitalization. She felt safe during the interview and if at any time she does not feel safe she will let us know or go to the emergency room. The risks, options, possible complications and side effects of medications were discussed with the patient and she understands and accepts these. No medication changes were made today as the patient is going to increase her Lamictal to 50 mg tomorrow if she continues her start up regimen of this. She will continue her other medications at the usual doses. She will continue to follow-up with her outpatient psychiatric and medical providers. I will see the patient in follow-up in 1 or 1 week.
--- NOTE | 2020-05-25 11:20 | BH.SGPN.GN ---
Behaviors/Verbalizations/Mental Status: []Client alert and oriented, casual dress, hygiene tended to. Eye contact fair. Motor activity appropriate. speech and tone WNL. Affect flat. mood depressed. Thoughts linear, logical, no signs of hallucinations or delusions. Client Response/Progress/Benefit: []Client engaged in session AEB listening to discussion and taking notes throughout. Client able to identify what unhealthy skills or behaviors she is engaging in that keeps her stuck from moving forward. Client attentive during psychoeducation about problem solving protocol. Client did well to work with the group to brainstorm strategies to promote making progress towards their desired chapter. Identified one thing she can do to move forward is to decrease self-isolation. Client stated she will set a small goal to reach out to a support person. Appeared to benefit from increased insight regarding her current ?Chapter? in life and reviewing strategies for promoting continued progress and prevent regression. Will continue IOP tx to prevent decompensation, challenge distorted thoughts and increase consistent application of skills. Narrative Note: []
--- NOTE | 2020-05-25 15:12 | BH.MDN_ITS ---
Multi-Disciplinary Note - Note 45-min Individual Time Started:: 12:16 Date: 05/25/20 Purpose of session/treatment goals addressed:: Purpose of session was to assess pt's current symptoms and stressors. Other topics included identifying positives, areas continuing to struggle in, and setting small goals. Eye Contact:: Fair Motor Activity:: Appropriate Appearance:: Casual Speech:: Appropriate Mood:: Depressed Affect:: Constricted Thoughts:: Linear, Logical, No evidence of hallucinations/delusions noted Staff Interventions:: Therapist used open ended questions to elicit pt's current symptoms and stressors. Therapist elicited positive coping skills utilized over the last week. Therapist assisted pt with identifying the consequences of pt's use of unhealthy coping. Collaborated with pt to identify goals to help her decrease isolative behaviors. Client Response:: Pt reported isolated yesterday despite knowing it was not a healthy choice. Pt stated she did make a positive choice of dumping the alcohol that was in her home. Pt reported she was having a lot of racing thoughts last night. Pt stated she used a thought log to help her identify her irrational thoughts. Pt reported she continues to struggle with challenging her distorted thoughts. Pt stated she also used word puzzles as positive distraction. Pt reported although she used several healthy coping skills she still struggled with being productive at times. Pt reported she laid on her couch for six hours because she had no motivation. pt recognizes laying on the couch doing nothing increased her negative thoughts and ruminations. Pt stated she would lik e to focus on decreasing isolative behaviors. With assistance pt reported she will go to her sister's house tomorrow as a way to decrease her isolation. Pt agreeable to call [facility] to inquire about start date for DBT group therapy. Risks/Concerns:: Pt reports daily suicidal thoughts with some intent, denies plan. Pt states she feels safe to go home and will not kill herself. Pt has hx of chroic suicidality. Pt is future focused. Pt agreeable to go to nearest emergency room if feels unable to maintain safety. Progress Toward Goals/Plan:: Progress noted with pt reporting increased utilization of healthy coping skills. Pt continues to struggle with suicidal thoughts, engaging in self-sabotaging behaviors, and difficulty independently challenging thoughts. Pt recommended to continue IOP level of care to increase consistent use of healthy coping, challenging distorted thoughts, and preventing decompensation. Time Stopped:: 13:00
== END 2020-05-25 23:59 ==
LOC: BHIOP 09:00
PROVIDERS: Referring Provider Psychiatry & Neurology Psychiatry; Visit Provider Psychiatry & Neurology Psychiatry
DX: F33.2 Major depressive disorder, recurrent severe without psychotic features (principal); F41.0 Panic disorder [episodic paroxysmal anxiety]; F10.11 Alcohol abuse, in remission; Z79.899 Other long term (current) drug therapy
CPT/HCPCS: H0035; 90834; 90853

== ENCOUNTER 2020-05-26 09:00 | Outpatient (RCR) | payer BC, SELFPAY ==
--- NOTE | 2020-05-23 09:05 | BH.SGPN.GN ---
Behaviors/Verbalizations/Mental Status: []Client alert and oriented, casually dressed. Eye contact good. Motor activity appropriate. Speech within normal limits. Affect unable to gather due to wearing a mask for COVID-19 protocol, mood dysthymic Thoughts linear, logical, no signs of hallucinations or delusions. Client?s daily symptom tracker scores for thoughts and risk of suicide were within client?s basleline. Client Response/Progress/Benefit: []Client responded well to session, as she engagedand listened to other group members as they shared. Client completed her goal of completing self-care, as she spent time in nature, attempted to meditate, and read. Group members offered feedback like using guided meditation, going to the client?s ?happy place?, and downloading apps to help encourage her to attempt meditating again in the future. Client shared that she applied opposite action and setting boundaries in her relationship with supports. 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 Client missed a call during her work shift to a child not breathing. Client stated that the call was triggering and sustained from using alcohol as a negative coping skill. Client stated feeling?agitated? towards her co-workers, and was not looking forward to work later today. Client benefited from IOP as client used healthy coping skills, and increased self-awareness. Client will continue IOP to prevent decompensation and maintain safety. Narrative Note: []
[2020-05-26 00:51] VITALS: BP 115/76; PULSE 74
--- NOTE | 2020-05-26 09:05 | BH.SGPN.GN ---
Behaviors/Verbalizations/Mental Status: []Client alert and oriented, casually dressed and groomed. Eye contact fair to good. Motor activity appropriate. Speech within normal limits. Affect unable to assess as pt wearing mask per COVID-19 protocol, mood depressed. Thoughts linear, logical, no signs of hallucinations or delusions. Reviewed client?s symptom tracker, risk for suicidal ideation indicated as 5/5 with intent reported as a 2/5. This is consistent with baseline and reduced from self-report on last attended session. Reports ability to maintain safety and willingness to use crisis resources if needed. Client Response/Progress/Benefit: []Pt responded well to session, receptive to feedback from peers and openly processed with group. Client reports feeling tired this morning as she has been struggling with continued internal conflict which been emotionally exhausting for her. Shared that her current stressor continues to be managing trauma triggers in the workplace. Responded well to being challenged on areas in which she is knowingly exposing herself to avoidable triggers in the workplace. Client additionally did well to independently identify personal positive which is progress for client. Positives noted as: setting a boundary with her support, as well as going to visit her sister rather than isolate the previous night. Client appeared to benefit from connecting with peers and identifying personal wins, though continues to struggle with disqualifying positives. Will continue IOP tx to prevent decompensation, continue to promote mood stability, and improve daily functioning. Narrative Note: []
--- NOTE | 2020-05-26 10:16 | BH.SGPN.GN ---
Behaviors/Verbalizations/Mental Status: []Client alert and oriented, casually dressed, hygiene appeared to be tended to. Eye contact good. Motor activity appropriate. Speech within normal limits. Affect unable to gather due to wearing a mask for COVID-19 protocol, mood dysthymic. Thoughts linear, logical, no signs of hallucinations or delusions Client Response/Progress/Benefit: []Client active participant as shown by contribution to discussion and active listening. Client shared connecting to group topic of self-care and shared without self-care ?you run on fumes.? Client agreed with peers that it is important to practice self-care, but they all struggle with through. Client helped the group discuss benefits of self-care which included; less irritability, increased confidence, improved emotional regulation, and better relationships. Client stated for her self-care increases productivity. Client participated in the discussion of the common myths about self-care. Client participated in the discussion on debunking of these myths. Client?s group challenged the myths: costs too much, makes a person weak, not deserving of it, and there are more important things than self-care. Client shared that is hard for her to practice self-care because taking time for self is discouraged in client?s family. Client seemed to benefit from increased awareness of the importance of self-care and challenging common myths that prevent practicing self-care. Will continue IOP tx to prevent decompensation, maintain safety, and reduce use of unhealthy coping skills. Narrative Note: []
--- NOTE | 2020-05-26 11:15 | BH.SGPN.GN ---
Behaviors/Verbalizations/Mental Status: []Client alert and oriented, casually dressed, hygiene appeared to be tended to. Eye contact good. Motor activity appropriate. Speech within normal limits. Affect unable to gather due to wearing a mask for COVID-19 protocol, mood dysthymic and irritable. Thoughts linear, logical, no signs of hallucinations or delusions. Client Response/Progress/Benefit: []Client receptive of session, engaged and positively contributing. Participated in group discussion on the various areas of self-care, benefits, and types of self-care activities for each area. Client stated current self-care practices utilized are ?exercising, eating healthier, meditating, and budgeting money.? Client completed self-assessment activity on her own utilization of the different areas of self-care and was able to identify current practices she actively practices and areas she can improve upon. Client reported she can improve on taking medication daily and developing a schedule for self to take medication. Progress variable based on the day/week. Client continues to struggle with chronic suicidal ideations, cognitive distortions, and self-reported self-sabotage.Client will continue IOP tx to prevent decompensation that may require hospitalization. Narrative Note: []
--- NOTE | 2020-05-31 10:20 | BH.SGPN.GN ---
Behaviors/Verbalizations/Mental Status: []Client alert and oriented, neatly dressed and groomed. Eye contact good. Motor activity appropriate. Speech within normal limits. Affect unable to gather due to wearing a mask for COVID-19 protocol, mood dysthymic. Thoughts linear, logical, no signs of hallucinations or delusions. Client Response/Progress/Benefit: []Client was an active participant AEB contributing to discussion and participating in activity. Connected with the topic of pitfalls and helped the group discuss barriers that keep them from choosing a healthier path to mental wellness such as pitfalls. Client stated for some people it takes hitting ?rock bottom? before choosing a different path. Group worked together to identify examples of personal pitfalls which included; not expressing self, not reaching out to supports, negative self-talk, and not having awareness. Engaged during the activity and responded well to suggestions from peers. Client reported she experienced some frustration during the activity when the group had to restart several times. Client coped with this using deep breathing. client benefited from increased awareness on the impact that pitfalls can have on mental health. Will continue IOP tx to prevent decompensation, improve distress tolerance skills, and reduce negative thinking. Narrative Note: []
--- NOTE | 2020-05-31 11:20 | BH.SGPN.GN ---
Behaviors/Verbalizations/Mental Status: []Client alert and oriented, casual dress, hygiene tended to. Eye contact fair. Motor activity appropriate. speech and tone WNL. Affect flat, mood depressed. Thoughts linear, logical, no signs of hallucinations or delusions. Client Response/Progress/Benefit: []Client receptive of session, engaged throughout AEB client participating in discussion, asking questions, and listening to others. Client completed a worksheet where she identified personal pitfalls impacting mental health progress. Identified pitfalls as: poor boundaries, negative thoughts, self-sabotage, and drinking alcohol to cope. Attentive and contributing during group brainstorm of strategies to overcome pitfalls. Client stated she will work on the pitfall of self-destruction. Benefited from identifying personal pitfalls and strategies to overcome these pitfalls. Client to continue IOP level of care to decrease self-sabotage, challenge distorted thoughts and prevent decompensation. Narrative Note: []
--- NOTE | 2020-06-01 09:02 | BH.SGPN.GN ---
Behaviors/Verbalizations/Mental Status: []Client alert and oriented, casual dress, hygiene tended to. Eye contact fair. Motor activity appropriate. Speech within normal limits. Affect flat, mood depressed. Thoughts linear, logical, no signs of hallucinations or delusions. Reviewed client?s symptom tracker, pt indicates a 3/5, with 5 representing severe, for suicidal ideation and a 0/5 for suicidal intent. These scores are below pt's lethality baseline. Pt does not appear to be at imminent risk to harm self or others. Client Response/Progress/Benefit: []Pt responded well to session AEB pt listening attentively to peers and sharing thoughts and feelings. Pt reported she accomplished goal of not isolating at home over the weekend. 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 Patient reported she utilized the skill of opposite action by forcing herself to engage in different activities and responsibilities in order to decrease isolation. Patient identified a current stressor is having to meet with her boss today because she has not shown up to work as she has been scheduled in the past day and half. With assistance patient able to recognize engaging in self sabotage by choosing to not go to work. Progress noted with patient putting forth effort to utilize healthy coping skills however continues to struggle with engaging in self-destructive behavior at times. Patient to continue IOP level of care to increase consistent use of healthy coping skills, challenge distorted negative thought patterns, and prevent decompensation. Narrative Note: []
--- NOTE | 2020-06-01 15:15 | BH.MDN ---
Multi-Disciplinary Note - Note 45-min Individual Time Started:: 11:30 Date: 06/01/20 Time Stopped:: 12:15
--- NOTE | 2020-06-03 09:00 | BH.SGPN.GN ---
Behaviors/Verbalizations/Mental Status: []Client alert and oriented, casually dressed. Eye contact good. Motor activity appropriate. Speech within normal limits. Affect unable to gather due to wearing a mask for COVID-19 protocol, mood low and agitated. Thoughts linear, logical, no signs of hallucinations or delusions. Reviewed client?s symptom tracker, risk for suicidal ideation above client?s baseline. Client will meet with an individual therapist to complete a safety plan. Client Response/Progress/Benefit: []Client responded well to session and engaged throughout. Client?s goal was to decrease self-destructive behavior, including going to the gym. Client stated she completed her goal. Client stated ?the last day and a half have been a whirlwind.? 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 Client said her emotion for the day was agitated, and she used opposite action by coming to IOP when she did not want to. Client benefited from group as she used opposite action and challenged her negative thinking to come to group and participate today. Client continues to struggle with mood instability and chronic SI which makes consistent progress difficult. Client will continue IOP to prevent decompensation and maintain safety. Narrative Note: []
--- NOTE | 2020-06-03 10:10 | BH.SGPN.GN ---
Behaviors/Verbalizations/Mental Status: []Client alert and oriented, casual dress, hygiene tended to. Eye contact fair. Motor activity appropriate. Speech within normal limits. Affect unable to gather due to client wearing a mask for COVID protocol, mood dysthymic. Thoughts linear, logical, no signs of hallucinations or delusions. Client Response/Progress/Benefit: []Client responded well to session, attentive throughout. Listening and participating throughout group discussion defining conflict and the differences between internal and external conflict. Group reported the benefits of addressing conflict as well as identified and discussed consequences of not addressing conflict. Client shared she would feel miserable internally as a consequence of not addressing conflict. Client attentive and contributing during psychoeducation of the different conflict resolution styles. Client reports her conflict style is avoiding which has negatively impacted client?s mental health. Client benefited from group as she learned new conflict resolution styles and the benefits. Client will continue IOP to prevent decompensation and maintain safety. Narrative Note: []
--- NOTE | 2020-06-03 21:56 | BH.MDN_ITS ---
Multi-Disciplinary Note - Note 60-min Individual Time Started:: 10:35 Date: 06/03/20 Purpose of session/treatment goals addressed:: Purpose of session was to further assess pt's current suicidal lethality due to pt indicating a 5/5 for suicidal ideation with 5 being severe and a 3/5 for suicidal lethality. This therapist met with pt as her individual therapist was not available. Additional topics included: review of strategies for preventing self-sabotage, healthy boundaries, safety plan for the weekend. Eye Contact:: Fair Motor Activity:: Appropriate Appearance:: Casual Speech:: Appropriate Mood:: Anxious, Depressed Affect:: Other - could not be assessed due to pt wearing a mask as a requirement during COVID-19 pandemic. Thoughts:: Linear, Logical, No evidence of hallucinations/delusions noted Staff Interventions:: Therapist asked open-ended and furthering questions to further assess pt's suicidal risk and lethality levels. Therapist worked with pt to establish a plan for maintaining safety over the weekend safety. Therapist provided support by validating emotions. Therapist worked with pt to review skills she can use to prevent self-sabotage and discussed potential consequences of drinking and isolating on ability to maintain safety. Client Response:: Pt was receptive of session, willing to meet with therapist to further assess for risk as pt individual therapist out of office. Pt noted that she is not currently suicidal, though discussed feeling that she has started to ?backslide again? over the past week as she has seen a resurgence in suicidal ideation and urges to drink. Pt reported she has been trying to use ?opposite action? and thought challenging to combat her negative thoughts when they occur, though often finds this difficult. Noted feeling increasingly irritable as well. Pt expressed that she had ?lashed out? at her sister the previous night as she had asked pt about her mental health. Pt expressed she does not feel comfortable or trust discussing her mental health with others. Receptive of discussion challenging pt use of distorted thoughts that progress should be linear. Pt expressed understanding that setbacks will occur, though was resistant to apply this to her own treatment progress. Reports feeling hopeless when passive thoughts of or urges to drink occur. Pt continues to struggle to identify the healthy skills she can use both cognitively and behaviorally to better manage thoughts and urges. Pt often indicated ?I don?t know? when therapist elicited skills she has learned throughout tx and successfully used in the past. Therapist utilized CBT and Motivational interviewing techniques to challenge pt apathy and identify consequences of engaging in unhealthy coping skills such as drinking alcohol and isolating that she has used in the past. Pt initially re sistant to identifying healthy alternatives she could use this weekend if experiencing suicidal ideation or urges to drink. Noted reluctance to reach out to supports as well. However, upon further discussion pt was eventually willing to establish a safety plan for the weekend. Noted she could go to her sister?s this evening to prevent from drinking and take some time to practice self-care as she has been laxing in this area. Identified plans to sit outside and read, as well as review the list of potential consequences of drinking created in session if struggling with increased urges. Expressed ability to maintain safety and willingness to reach out to her supports or contact crisis should she feel unable do so at any point. Risks/Concerns:: Pt reports daily suicidal thoughts with some intent, denies plan. Pt states she feels safe to go home and will not act on suicidal thoughts. Pt has hx of chronic suicidality. Pt is future focused. Pt agreeable to contact supports and go to nearest emergency room if feels unable to maintain safety. Expressed plans to attend IOP on Saturday of next week. Progress Toward Goals/Plan:: Progress limited due to pt continuing to have daily suicidal ideations. Pt continues to struggle to implement healthy skills and often resorts back to prior toxic coping behaviors such as alcohol or self- isolating. Pt continues to appear apathetic which may be impacting overall tx progress as well. Recommended continued IOP tx to promote healthy change behaviors, continue to reduce suicidality, and maintain safety. Time Stopped:: 11:45
--- NOTE | 2020-06-06 21:58 | BH.MDN_ITS ---
Multi-Disciplinary Note - Note 60-min Individual Time Started:: 15:55 Date: 06/06/20 Purpose of session/treatment goals addressed:: The purpose of this session was to address client's current stressors and negative thoughts reinforcing depression. Another goal was to assess for current risk level and aid client in safety planning for the evening. Symptoms/Behavior:: This counseling session was provided via telehealth using tw o-way, real-time interactive telecommunication technology between the patient and the clinician. The interactive telecommunication technology included audio and video. The patient was offered telehealth as an option for care delivery during the COVID-19 pandemic and consented to this option. Patient location: [place]. Provider located at [facility]. Eye Contact:: Other - Other - unable to assess as session was completed via telehealth Motor Activity:: Other - Other - unable to assess as session was completed via telehealth Appearance:: Other - Other - unable to assess as session was completed via telehealth Speech:: Appropriate Mood:: Irritable, Depressed Affect:: Other - Other - unable to assess as session was completed via telehealth Thoughts:: Linear, Logical Staff Interventions:: Therapist used active listening and open-ended questions to explore client's current symptoms, stressors, and negative thoughts. Therapist assessed client?s current level of risk and completed a suicide risk assessment. Therapist applied DBT techniques of therapeutic coaching to encourage client to take positive approaches in managing her emotions and applying distress tolerance skills. Therapist aided client in challenging distortions using cognitive restructuring. Worked with client to create a plan for maintaining safety for the evening. Client Response:: Client called into behavioral health department this afternoon and indicated struggling with increased suicidal ideation over the past three days since last meeting with this therapist. Client noted that there is no particular trigger for her increased suicidal ideation, expressing frustration as she feels the thoughts ?just keep popping up?. Therapist inquired as to what skills client has used today to challenge her negative thoughts and better cope with feelings of hopelessness. Client denies using any of the specific skills reviewed in prior session and noted ?I?ve just been trying to stay away from people?. When challenged, client was able to identify potential costs of isolating on reinforcing negative thoughts and making it more difficult to identify positives. When therapist inquired what skills client could use to improve her mood and focus on positives, client reported ?I don?t know? and struggled to identify distress tolerance skills learned throughout treatment or those from her Safety plan. Upon further discussion, client reported being at work currently which is helping to prevent her from drinking or acting on any negative thoughts. Identified that she could reach out to her co-worker, Malcolm, who is a support as well as read her book to focus on something else. Client denies any current, active suicidal ideation, plan or intent; however, discussed being concerned about her ability to maintain safety upon returning home this evening as she will be alone. Initially resistant to identifying skills she could use to maintain safety and was reluctant to reach out to supports she could use she feel unable to maintain safety as well. Reported ?I don?t want to bother anyone?. Upon further discussion, client did well to identify not creating a safety plan for the evening as a potential means of self-sabotaging and would further prevent making progress in improving mental health sx. Identified that her supports have expressed willingness to help client in the nd st. Client ultimately expressed willingness to create a safety plan as well as reach out to her sister and see if client could stay the night to prevent from being alone for the evening. Client sister agreeable with this plan and client indicated that she would leave straight from work and go to her sister?s house for the evening. Reports plans to attend [facility] tx tomorrow morning. Risks/Concerns:: Client reports fleeting suicidal ideations throughout the day; however, denies any thoughts of suicide, plan, or intent at time of phone call. Completed risk assessment and client denies any plan or intent to harm self, as well as denies any access to firearms or other lethal means at this time. Contracts for safety and does not believe she is harm to self as she will stay with her sister this evening to ensure safety. Future-oriented. Plans on attending IOP tomorrow. With encouragement client able to identify things she could do tonight to keep self-safe. Reports ability to go to tell her sister and go to the ER should SI get worse and she feel like she cannot maintain safety. Progress Toward Goals/Plan:: Continued limited progress due to client ongoing chronic suicidal ideation and difficulties in identifying distress tolerance skills in the moment. Plan is to continue in IOP to continue to stabilize and maintain safety. Client has plan for safety. Client also reports willingness to seek emergency services should she feel unable to maintain safety. Will continue to monitor. Time Stopped:: 16:55
--- NOTE | 2020-06-07 09:03 | BH.SGPN.GN ---
Behaviors/Verbalizations/Mental Status: []Client alert and oriented, neatly dressed and groomed. Eye contact fair. Motor activity appropriate. Speech WNL- making inappropriate jokes at times. Affect unable to gather due to wearing a mask for COVID-19 protocol, mood dysthymic. Thoughts linear, logical, no signs of hallucinations or delusions. Reviewed client?s symptom tracker. Client's scores for SI and risk for suicide are higher than baseline. Client will see individual therapist today. Client Response/Progress/Benefit: []Client responded somewhat well to session. Client reports feeling more suicidal this morning due to client's report of lack of self-care and stress with work and family. Client shared her goal was to set boundaries with her father which client stated she did not do because client was afraid of how he would respond. Therapist gently challenged client and discussed with client the negative impact that lack of boundaries will continue to have on client's mental health. Client also has reported not setting boundaries at work which continues to be a trauma trigger for client. Appeared to benefit from coming to group today rather than isolating. Will continue IOP tx to prevent decompensation and maintain safety. Narrative Note: []
--- NOTE | 2020-06-07 15:20 | BH.MDN_ITS ---
Multi-Disciplinary Note - Note 45-min Individual Time Started:: 11:35 Date: 06/07/20 Purpose of session/treatment goals addressed:: Purpose of session was to assess pt's current symptoms and stressors. Other topics included: assessing for suicidal lethality, planning for safety, identifying barriers to progress, and discussing discharge plans for next week. Eye Contact:: Fair Motor Activity:: Restless Appearance:: Casual Speech:: Appropriate Mood:: Depressed Affect:: Flat Thoughts:: Linear, Logical, No evidence of hallucinations/delusions noted Staff Interventions:: Therapist used open ended questions to elicit pt's current symptoms and stressors. Therapist used a scale from 0-10 with 10 being all the time, to assess pt's current use of healthy coping skills. Therapist elicited barriers to consistent use of skills and progress. Therapist reviewed importance of self-care, eliciting what self-care activities pt will engage in over the next week. Therapist assessed for lethality and worked with pt to plan for safety. Discharged tentative discharge plans for next week. Client Response:: Pt stated she stayed busy all weekend to get through the days. Pt reported she did go on two EMS calls this weekend that didn't go too bad. Pt stated she was having suicidal thoughts throughout weekend. When elicited on a 0-10 scale how often pt uses her skills pt reported a 4. Pt stated she knows she doesn't use her skills as consistently as she could which is hindering her treatment progress. Pt identified extrenal stressors, work issues, urges to drink alcohol, low motivation and her dad to be barriers to treatment. 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 Pt reported she doesn't set boundaries because doesn't want to disappoint him. Pt recognizes by continuing to overwork herself she will not have time to use her healthy skills which likely will result in continued depressive symptoms. Pt stated she is concerned she is not getting better be cause of her medications. Pt reported she will be seeing her outpatient psychiatrist soon. Pt stated for self-care she will work on reading, sitting on the porch and taking a bubble bath. Pt reported she is frustated with having suicidal thoughts daily. Pt stated she has thought about wrecking her car or dying by carbon monoxide posioning. Pt denies suicide plan. Pt reported she feels able to maintain safety and willing to plan for safety. 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 Pt agreeable to call 911 or go to nearest emergency room if felt unable to maintain safety. When discussing discharge pt reported she would be willing to try the DBT IOP at [facility] if there are openings. Pt stated she doesn't really want to do another IOP but recognizes she probably could use the support. Risks/Concerns:: Client reports chronic suicidal thoughts with ideas and intent. Pt denies suicide plan. future focused. able to plan for safety. agreeable to call 911 or go to nearest emergency room if feel unsafe. no access to firearms or stockpile of medications. Progress Toward Goals/Plan:: Progress continuing to decompensate AEB pt reporting increased depressive symptoms with worsening suicidal thoughts. Due to lack of progress during pt's second admission to current IOP it appears pt has gained her maximum benefit. Plan is to contact [facility] DBT focused IOP to inquire about admission for pt to that IOP. Time Stopped:: 12:15
--- NOTE | 2020-06-09 09:57 | BH.MDN ---
Multi-Disciplinary Note - Note 45-min Individual Time Started:: 09:03 Date: 06/09/20 Purpose of session/treatment goals addressed:: Purpose of session was to create a aftercare plan for when pt discharges from IOP next week. Eye Contact:: Fair, Intense - at times Motor Activity:: Restless Appearance:: Casual Speech:: Appropriate Mood:: Anxious, Dysthymic Affect:: Flat Thoughts:: Linear, Logical, No evidence of hallucinations/delusions noted Staff Interventions:: Therapist used open ended questions to elicit pt's current symptoms and stressors. Therapist helped pt identify barriers to treatment progress.Therapist worked with pt to solidfy discharge plans. Therapist provided pt with various options in regards to discharging to a different IOP or to outpatient counseling. Therapist provided support by validating emotions and providing feedback. 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 Pt stated she recognizes this is unhealthy for her because keeps her from engaging in self-care and using her skills. Pt stated it also reinforces her depressive symptoms because puts his needs first. Pt stated she puts his needs first because doesn't want to disappoint him. Pt eventually stated she doesn't set boundaries or use or skills because has the belief that I don't deserve to be happy. Pt seemed to connect how this core belief is keeping her stuck. Pt agreed she could benefit from discharging to a DBT IOP due to progress in current IOP being stagnant with mild progress. Risks/Concerns:: Pt reports suicidal thoughts with intent, methods, denies plan. Pt has chronic suicidal thoughts. Pt states she feels able to maintain safety. Agreeable to call 911 or go to nearest emergency room. Progress Toward Goals/Plan:: Treatment progress is stagnant AEB pt continuing to report suicidal thoughts, difficulty applying healthy coping skills consistently, and mild progress after 12 weeks of IOP treatment. It appears current IOP treatment is no longer being effective for pt as a result pt will be discharging next week. Pt will be going to a DBT IOP focused IOP for continued support and the hope a different treatment approach can help pt progress. Time Stopped:: 09:50
--- NOTE | 2020-06-09 11:22 | BH.SGPN.GN ---
Behaviors/Verbalizations/Mental Status: [] Client alert and orient. Appearance casual, and appropriately groomed. Speech an appropriate rate and tone Motor activity WNL. Mood dysthymic, irritable, affect unable to determine as client wearing mask per COVID-19 protocol. No evidence of delusion or hallucinations.? Client Response/Progress/Benefit: [] Client a mostly passive participant throughout, did well to actively listen, take notes, as well as make personal connections with materials discussed. Client engaged in group discussion continuing to define the different cognitive distortions and ways in which each distorted thought pattern may impact mental health progress. Client taking notes during psychoeducation on T.H.I.N.K. (True, Helpful, Important, Necessary, Kind) acronym as a strategy for identifying and challenging distorted thought patterns. Indicated she at times struggles with disqualifying the positive and assuming her supports think she is a burden. Expressed she would like to begin asking herself ?Is this thought negative?? to improve ability to reframe unhelpful thoughts and be more willing to ask for help when needed. Appeared to benefit from increasing insight into distorted thinking patterns, the impacts they have on mental health, and identifying possible strategies for beginning to reduce negative thoughts. Progress continues to be limited as client often struggles with emotion regulation, poor incorporation of skills learned outside tx environment, and limited use of internal coping mechanisms. Recommended continued IOP tx to improve mood stability, promote distress tolerance behaviors, and prevent decompensation. Narrative Note: []
--- NOTE | 2020-06-10 10:20 | BH.SGPN.GN ---
Behaviors/Verbalizations/Mental Status: []Client alert and oriented, neatly dressed and groomed. Eye contact good. Motor activity appropriate. Speech within normal limits. Affect unable to gather due to wearing a mask for COVID-19 protocol, mood dysthymic. Thoughts linear, logical, no signs of hallucinations or delusions. Client Response/Progress/Benefit: []Client was a passive participant AEB client no providing input to discussion, but listening to peers. Client appeared to connect with how having a negative perspective can keep you stuck, prevent a person from getting help, and cause worsening mental health symptoms AEB nodding. Listened as group identified how negative perspective can impact mental health which included: self-fulfilling prophecy, amplifying past mistakes, worse mood, and negative thinking.?Listened as group discussed ways a positive perspective can impact mental health such as: seeking treatment, challenging distortions, and improved mood. Client appeared to benefit from increasing understanding of mental health benefits of a positive perspective and potential consequences to progress when perspective is negative. Client continues to demonstrate limited progress AEB self-report of ongoing use of unhealthy coping and chronic SI. Will continue IOP tx to prevent decompensation that may require hospitalization and maintain safety. Narrative Note: []
--- NOTE | 2020-06-10 11:20 | BH.SGPN.GN ---
Behaviors/Verbalizations/Mental Status: [] Eye contact is good. Motor activity is appropriate. Appearance is casual. Speech is Appropriate. Mood is depressed. Affect is flat. Thoughts are linear and logical. No evidence of psychosis. Client Response/Progress/Benefit: [] Pt participated at times during group discussion. Attentive during psycho-education. Attentive however limited engagement during group discussion on the impact of perspective on how we view ourselves. Pt worked with the group to develop a working definition of the term strengths and the importance of recognizing one's strengths. Pt was given a worksheet and was asked to still[place]ish at least 3 strengths which she completed. Group then worked together to identify strategies to remind themselves of their strengths which included; picking one strength per day, asking support to tell us one of our strengths, track our accomplishments, daily affirmations, and creating a gratitude journal. Progress noted. Benefited from increased awareness of the role of perspective and strengths in daily mental health wellness. Will continue in IOP to maintain safety. Narrative Note: []
--- NOTE | 2020-06-13 09:00 | BH.SGPN.GN ---
Behaviors/Verbalizations/Mental Status: []Client alert and oriented, casually dressed. Eye contact good. Motor activity appropriate. Speech within normal limits. Affect unable to gather due to wearing a mask for COVID-19 protocol, mood dysthymic. Thoughts linear, logical, no signs of hallucinations or delusions. Client scored self above baseline for suicide risk and plan. Client will meet with an individual therapist for safety planning. Client Response/Progress/Benefit: []Client responded well to group as she engaged and participated throughout session. Client shared her goal for the weekend was to create positive affirmations and place them around her house. Client reported she did not complete the goal due to ?being lazy.? Client expressed thoughts of suicide over the weekend and stated self-care did not help decrease the depresive symtpoms from over the weekend. Client stated the weekend was triggering, as her bonding supervisor saw client?s cutting morel from self-harm, finding razors in client?s office, and a coworker showed her a video of a vetern committing suicide. Client stated she removed herself from the triggers and attempted to reframe the distortive thoughts. Client?s progress is minimal due to client?s self-report of self-sabotaging behaviors and chronic suicidal ideations. Client will meet with an individual therapist to discuss further goals related to treatment. Narrative Note: []
--- NOTE | 2020-06-13 11:15 | BH.SGPN.GN ---
Behaviors/Verbalizations/Mental Status: []Client alert and oriented, casually dressed and appropriately groomed. Eye contact fair to good. Motor activity appropriate. Speech within normal limits, quiet. Affect could not be assessed due to pt wearing a mask as a requirement during COVID-19 pandemic. mood depressed and apathetic. Thoughts linear, logical, no signs of hallucinations or delusions. Client Response/Progress/Benefit: [] Client engaged in session AEB client taking notes and was willing to complete Zones of Regulation worksheet, though passive throughout discussion. Attentively listening during psychoeducation on 4 zones of regulation and able to identify feelings and behaviors for each zone. Client reported feeling she is currently in the red zone and continues to struggle with feeling as though she is in a constant state of crisis. Expressed that in this zone she tends to: sleep more, become more explosive, have suicidal thoughts, or ?feel on top of the world?. Group identified coping skills one can use to support self in each zone. Client reported she will practice more actively using her safety plan created in individual sessions as well as call the crisis line to aid in continuing to maintain safety and prevent from ongoing crisis escalation. Benefited from increased education on zones of regulation or stages of alertness for emotions and healthy coping skills to use for each zone. Progress limited as client continues to struggle with significant self-sabotaging behaviors and distorted thinking patterns, as well as apathy that prevent consistent skill application. Will continue IOP tx to continue use of healthy coping skills, challenge negative thought patterns, maintain safety, and prevent decompensation. Narrative Note: []
--- NOTE | 2020-06-13 11:39 | BH.MTP_ITS ---
Treatment Plan Review Date of Admission:: 05/13/20 Date of Treatment Plan Review:: 06/13/20 Admitting Diagnoses:: F33.2 Major depressive disorder, recurrent, severe without psychosis; panic disorder; history of alcohol use disorder; strong cluster b traits Current Diagnoses:: F33.2 Major depressive disorder, recurrent, severe without psychosis; panic disorder; history of alcohol use disorder; strong cluster b traits Patient's Response to Treatment:: Pt consistently attends IOP sessions. Pt often is a passive participant during group sessions. For the first two weeks of IOP she was more engaged in group sessions. The last two weeks pt has provided limited feedback during group. Most individual therapy sessions revolve around crisis management. Pt is able to identify healthy coping skills but struggles with applying those skills independently. Pt will often follow through with safety plan developed in individual sessions. Status of Current Problems and Symptoms: Pt continues to report depressed mood with low motivation, apathy, feelings of worthlessness, and chronic thoughts of suicide. Pt reports daily suicidal thoughts with intent, denies plan. Pt reports the method of suicide she has thought of is a car wreck. Pt has hx of wanting to overdose on medications but now her friend stores her medication, only giving pt a week worth of medications. Pt progress seems hindered by pt's overrealiance on external supports. Pt often calls IOP after leaving group multiple times a week for guidance and support. Pt is able to verbalize healthy coping skills but doesn't utilize the skills when needed. Problem #1 Problem Name:: Depression Status of Goals:: Objective 1 - Pt has made mild progress with identifying and replacing negative thought patterns. Pt reports improved awareness of her negative thought patterns but struggles with application of skills outside treatment environment. Objective 2 - Pt has made slight progress with decreasing depressive symptoms AEB pt's results on DSM 5 cross cutting measure. Per the DSM measure pt has made a 12% reduction in depressive symptoms compared to pt's self-report scores at intake. Team Recommendations:: Due to this being patient's second admission to [facility] and showing minimal progress the team recommends discharging pt to a different program. Pt seems to have gained maximum benefit from current IOP and the team discussed pt could benefit from a different treatment approach specifically DBT. Problem #2 Problem Name:: Anxiety Status of Goals:: Objective 1 - Pt is able to identify at least 2 healthy coping skills to manage her anxiety like breathing and taking a break. Pt reports she is seeing some progress with being able to manage her anxiety. Pt continues to show difficulty consistently applying her healthy skills. Objective 2 - Pt has made mild/moderate progress on decreasing anxious symptoms AEB pt's self-report scores on the DSM 5 cross-cutting measure. Pt's scores indicate a 40% reduction in anxious symptoms compared to when pt started IOP four weeks ago. Pt does appear to be less anxious at times while in IOP group sessions. However pt could benefit from continued work with consistent application of skills. Team Recommendations:: Due to this being patient's second admission to IOP and showing minimal progress the team recommends discharging pt to a different program. Pt seems to have gained maximum benefit from current IOP and the team discussed pt could benefit from a different treatment approach specifically DBT.
--- NOTE | 2020-06-13 19:46 | BH.MDN ---
Multi-Disciplinary Note - Note 45-min Individual Time Started:: 12:20 Date: 06/13/20 Purpose of session/treatment goals addressed:: Pt requested individual session due to feeling increased suicidal thoughts with intention. Session focused on reviewing healthy coping skills and creating plan for safety. Eye Contact:: Fair, Intense - at times Motor Activity:: Appropriate Appearance:: Casual Speech:: Appropriate Mood:: Depressed Affect:: Flat Thoughts:: Linear, Logical, No evidence of hallucinations/delusions noted Staff Interventions:: Therapist used open ended questions to elicit pt's current symptoms and stressors. Assessed pt's suicidal lethality. Worked with pt to develop plan for safety. Challenged pt's ambigious responses of I don't know and maybe when assessing for risk. Provided support by validating emotions. Client Response:: Pt stated she had a difficult weekend because her Lieutenent saw the cuts on her arm so made her go get assessed by the doctor whom then called her boss into work. Pt reported on Saturday she isolated from others while at [employer] then went to her dads and reported he said mean things to her. Pt stated on Saturday when she got home she was feeling suicidal so she sat in her truck with the garage door on for a couple minutes. Pt reported she chose to turn the truck off because she didn't want her sister to find her. Pt stated she has been feeling suicidal today with the same method of carbon monoxide posioning. Pt reported she could keep herself safe if she left IOP today. Pt worked with therapist to develop plan to help her maintain safety. Pt stated she was willing to stay the night at her sister's house tonight if she was continuing to feel suicidal with intent. Pt agreed that if she didn't believe she could maintain safety she would call crisis or go to the nearest emergency room. Pt agreeable to follow through with discussed plan. Risks/Concerns:: Pt continues to report chronic suicidal thoughts with methods and some intent. Pt states she can keep herself safe and doesn't believe hospitalization is neccessary at this time. See above note for additional information. Pt does not have access to any firearms and her friend stores her medications with him. Pt agreeable to stay with sister for the night. Progress Toward Goals/Plan:: Progress continues to be decompensating with reporting daily suicidal thoughts and depressed symptoms. Pt admits she is not utilizing her internal coping skills very often. Due to pt continuing to decompensate and show minimal progress since starting IOP for a second time 4 weeks ago. Plan is for pt to discharge from IOP this week and admit into a DBT focused IOP. Time Stopped:: 13:00
--- NOTE | 2020-06-16 09:00 | BH.SGPN.GN ---
Behaviors/Verbalizations/Mental Status: []Client alert and oriented, casually dressed. Eye contact good. Motor activity appropriate. Speech within normal limits. Affect blunted, mood anxious. Thoughts linear, logical, no signs of hallucinations or delusions. Client scored self at client baseline for suicide risk and thought ideation. Client Response/Progress/Benefit: []Client was cooperative and responded well to group. Client engaged and participated throughout group discussion. 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 Client feels anxious to tell her familyn due to them feeling disappointed. The group offered positive feedback and client challenged her distortive thinking. Client shared she wants to continue practicing self-care by setting time aside from her schedule, and reminding herself of things she can control. Progress was made as client was able to weigh the pros and cons of healthy decisions. Client will discharge from the IOP program tomorrow as client reports receiving maximum benefits and prefers to try a different IOP program. Client can benefit from one more day of IOP to establish aftercare. Narrative Note: []
--- NOTE | 2020-06-16 10:20 | BH.SGPN.GN ---
Behaviors/Verbalizations/Mental Status: []Client alert and oriented, casually dressed and appropriately groomed. Eye contact fair. Motor activity appropriate. Speech within normal limits. Affect constricted, mood dysthymic. Thoughts linear, logical, no signs of hallucinations or delusions. Client Response/Progress/Benefit: []Client appeared engaged during session AEB client providing input at times and listened to others. Client reported she now realizes the importance of acknowledging the small goals she accomplishes versus looking for perfection. Client helped group discuss the barriers that keep people from either setting goals are following through with goals. Client able to provide feedback during psychoeducation on SMART goals. Client appeared to benefit from learning the mental health benefits of setting goals that are SMART. Will continue IOP tx prevent decompensation, continue practicing healthy coping skills and maintain safety. Narrative Note: []
--- NOTE | 2020-06-16 11:15 | BH.SGPN.GN ---
Behaviors/Verbalizations/Mental Status: []Eye contact is good. Motor activity is appropriate. Appearance is casual. Speech is Appropriate. Mood is agitated. Affect is constricted. Thoughts are linear and logical. No evidence of psychosis Client Response/Progress/Benefit: []Client was engaged during discussion, did well to complete activity and process with the group. Client was willing to complete the worksheet in which she was challenged to develop a personal SMART goal. Client chose the goal; pick one self-care activity such as reading, taking a bath, or listening to relaxing music 3-4x this week for 30 minutes. When asked why this goal was important and beneficial to client's mental health, she stated this will help reduce suicidal ideations. Client identified her barriers which included: lack of time, making excuses, and procrastination. Client receptive to identifying solutions for these barriers and willing to begin working on this goal. Benefited from this group by developing a short-term SMART goal related to mental health. Will continue IOP tx and discharge tomorrow. Client can benefit from one more IOP day to reinforce healthy coping skills and transition plan of care. Narrative Note: []
--- NOTE | 2020-06-17 09:00 | BH.SGPN.GN ---
Behaviors/Verbalizations/Mental Status: []Client alert and oriented, casually dressed. Eye contact good. Motor activity appropriate. Speech within normal limits. Affect unable to gather due to wearing a mask for COVID-19 protocol, mood anxious. Thoughts linear, logical, no signs of hallucinations or delusions. Reviewed client?s symptom tracker, client scored herself within her baseline for suicidal risk, plan, and intent. Client Response/Progress/Benefit: []Client responded well to session, engaged and participated throughout discussion. Client?s goal has been practicing self-care. Client reported going on a walk and working out as part of self-care. Client shared that using opposite action has helped her complete personal goals. Client used humor as she discussed her stressor of a mess up with her medications. Progress as been minimal throughout client?s time in IOP.Client reports receiving maximum benefit from IOP and will discharge today to participate in a different IOP program Narrative Note: []
--- NOTE | 2020-06-17 10:15 | BH.SGPN.GN ---
Behaviors/Verbalizations/Mental Status: []Client alert and oriented, casually dressed and appropriately groomed. Eye contact fair. Motor activity appropriate. Speech within normal limits. Affect constricted, mood anxious and dysthymic. Thoughts linear, logical, no signs of hallucinations or delusions. Client Response/Progress/Benefit: []Client passive participant AEB client not providing input during discussion however appeared to listen attentively to others and taking notes. Listened to group identify impact forces can have on growth and overall mental health. Client identified her positive forces include: gym, supports, goals, determination, and family. Client stated negative forces to include: work, depression, suicidal thoughts, certain family members, and high expectations. Client seemed to benefit from increased awareness of current positive and negative forces that impact her mental health and personal growth. Plan is for client to discharge from [facility] today. Narrative Note: []
--- NOTE | 2020-07-25 14:50 | BH.DS_ITS ---
Discharge Summary - Demographics Date of Admission:: 05/13/20 Discharge Date: 06/13/20 Presenting Problems at Admission:: Pt has been hospitalized 5 times since August 2019 for suicidal ideation. Pt's most recent hospitalization for suicidal ideation with plan was from 05/09/20-05/11/20. Pt on a reduced schedule due to mental health symptoms interferring with her ability to be at work full- time. Pt's mental health impacts her ability to form and maintain healthy relat ionships and negatively impacts work performance. Pt not functioning at baseline. Discharge Diagnoses:: F33.2 Major depressive disorder, recurrent, severe without psychosis; panic disorder; history of alcohol use disorder; strong cluster b traits Reason for Discharge:: Pt has reached maximum benefit from [facility] and will be discharged to a DBT focused [facility]. - Treatment Progress During Treatment & Response: Per the DSM 5 cross-cutting measure pt decreased depression by 12% and anxiety by 40% with an overall symptom reduction of 43%. Pt's progress has been minimal throughout treatment program. Pt struggles with applyaing skills consistently. Pt had been in this IOP previously for about 6 weeks then was hospitalized for SI. Pt continues to struggle with SI and it seems pt has met her maximum benefit at current IOP. Pt consistently attended sessions. Pt provided minimal input througout group sessions. Majority of individual sessions were focused on crisis management. Pt followed through most often with safety plan but lacked consistency with using skills when not in crisis. Issues Still to be Addressed:: Pt could benefit from reinforcing consistent application of healthy coping skills, challenge distorted and negative thought, improving emotional regulation skills, and decreasing self-sabotage. Discharge Recommendations/Instructions:: Pt will be discharged to the [facility] DBT program starting on 06/20/20. Pt will also continue to follow up with Dr. De León for medication management. Discharge Handout: Complete Discharge Handout with client on aftercare options and continuity of care.
== END 2020-06-17 15:49 | disposition home or self-care (01) ==
LOC: BHIOP 09:00
PROVIDERS: Referring Provider Psychiatry & Neurology Psychiatry; Visit Provider Psychiatry & Neurology Psychiatry
DX: F33.2 Major depressive disorder, recurrent severe without psychotic features (principal); F41.0 Panic disorder [episodic paroxysmal anxiety]; Z72.89 Other problems related to lifestyle
CPT/HCPCS: H0035; 90834; 90837; 90853

== ENCOUNTER 2020-11-15 09:00 | Outpatient (RCR) | payer BC, SELFPAY ==
--- NOTE | 2020-11-15 09:00 | BH.SGPN.GN ---
Behaviors/Verbalizations/Mental Status: []Eye contact is fair to good. Alert and oriented. Motor activity is appropriate. Appearance is neat and casual. grooming is appropriate. Speech is Appropriate. Mood is depressed. Affect is congruent. Thoughts are linear and logical. No evidence of psychosis or hallucinations. Client Response/Progress/Benefit: []Pt first day back in IOP tx group. She was receptive of group session and engaged throughout AEB listening to others and willingness to share thoughts and feelings with group. Pt discussed struggling with boundaries and self-advocacy since leaving IOP group. Noted wanting to work on improving in these areas and better managing her emotions. Discussed feeling anxious about returning to the group environment but is hopeful this will aid in improving overall ability to manage her mental health sx and prevent crisis escalation. Pt recommended continued IOP tx to improve mental health, reduce sx severity, and prevent decompensation. Narrative Note: []
--- NOTE | 2020-11-15 10:05 | BH.SGPN.GN ---
Behaviors/Verbalizations/Mental Status: [] Eye contact is good. Motor activity is appropriate. Appearance is casual. Speech is Appropriate. Mood is depressed. Affect is flat. Thoughts are linear and logical. No evidence of psychosis. Client Response/Progress/Benefit: [] Pt was an active participant in group discussions and group activity. Attentive and provided input of along with peers on benefits on examples of healthily support ( co-workers, pets, teachers, family, friends, medications, providers, sreedhar, and Us as individuals), the benefits of support (outside perspective, helps break negative cycles, educational, helps us connect with others, decreases loneliness, and gives us permission to not be OK), and the barriers to support (difficult to trust others, fear of being vulnerable, past negative experiences, feelings that we don't deserve support, and feelings that we are burden to support). Able to see the impact of support and its benefits during activity and challenges of accomplishing tasks w/o proper support. Pt shared the impact that negative support from certain family has impacted her mental wellness. Benefited from awareness of barriers to support as well as importance of support in mental health wellness. Narrative Note: []
--- NOTE | 2020-11-15 11:05 | BH.SGPN.GN ---
Behaviors/Verbalizations/Mental Status: []Client alert and oriented, neatly dressed and groomed. Eye contact good. Motor activity appropriate. Speech within normal limits. Affect constricted, mood agitated. Thoughts linear, logical, no signs of hallucinations or delusions. Client Response/Progress/Benefit: []Client an active participant throughout AEB contributing to discussion, taking notes, and providing supportive feedback. Client participated in the group activity highlighting the various barriers to effectively utilizing supports and strategies the group used. Client participated in discussion of the four types of support (emotion, tangible, informational, and social) and gave examples for all types. Client reports wanting to work on increasing emotional support and ?feeling my feelings.? Client stated this support will help client ?be more well-rounded? and process emotions. Client plans to do this by increasing awareness of personal needs. Client seemed to benefit from identifying the type of support she wants to improve. Client to continue in IOP tx to prevent decompensation, monitor mood, and increase self-care. Narrative Note: []
--- NOTE | 2020-11-15 13:06 | BH.MTP_ITS ---
[facility] Treatment Plan - Patient Information Program Physician:: Dr. Monsivais Primary Therapist:: Wendy Quintanilla, [facility] - Psychiatric Diagnoses Psychiatric Diagnoses:: Bipolar disorder, most recent episode mixed, severe without psychosis; panic disorder; alcohol use disorder Diagnosis Code(s):: F 31.63 - Estimated LOS Estimated LOS (in weeks):: 6 Problem/Goal #1 - Problem/Goal #1 Stated Goal:: Client will stabilize mood due to Bipolar Disorder through IOP services. Description of Barriers: Pt's distorted thought patterns, hx of 7 pychiatric hospitalizations, chronic suicidal thoughts, limited healthy support, and difficulty utilizing healthy coping skills. Functional Impact: Pt self-referred to [facility] program due to mood irritability, worsening depression with passive thoughts of . Pt has hx of bipolar disorder, panic disorder, and alcohol use disorder. Pt participated in [facility] from February 2020 to May 2020. Pt reports having to work part-time at [employer] due to losing other job has impacted her moods because of 24 hour shifts. Pt stated not being able to take her medications properly due to night shifts. Pt endorses increased irritability, decreased sleep, increased energy, reckless driving, and impulsive sex with several men. Pt endorses depressed mood with feelings of worthlessness, hopelessness, anger, anhedonia, decreased concentration and no motivation. - Objectives Objective #1 Stated Objective: Client will reduce depression, suicidal thinking, and impulsivity by identifying and utilizing 2-3 coping skills to manage mood stability. Interventions: Therapist will help client through individual and group work to identify what may trigger mood swings. Therapist will encourage the use of a mood log, or another way to track kory to help client intervene before mood worsens. Discharge Criteria: Client will have met this goal when mood is stable, is able to identify 2 coping skills to use. Client will successfully be able to utilize skills to manage moods. Target Date: 12/30/20 Review Date: 12/14/20 Objective #2 Stated Objective: Pt will decrease depressive and manic symptoms AEB pt?s score on the DSM 5 cross-cutting measure and improve pt?s daily functioning. Interventions: Through groups and individual therapy, pt will be provided with education on cognitive distortions, mistaken beliefs, and identifying and combating negative self-talk. Therapist will assist pt with getting back into the activities she once enjoyed as well as increasing healthy coping strategies. Discharge Criteria: Pt will have met this goal when pt?s score on the DSM 5 cross cutting measure for depression and carlo has been decreased and per pt?s report daily functioning has improved. Target Date: 12/30/20 Review Date: 12/14/20 Problem/Goal #2 - Problem/Goal #2 Stated Goal:: Client will reduce overall frequency, intensity, and duration of the anxiety so that daily functioning is not impaired.? Description of Barriers: Pt's distorted thought patterns, hx of 7 pychiatric hospitalizations, chronic suicidal thoughts, limited healthy support, and di fficulty utilizing healthy coping skills. Functional Impact: Pt self-referred to [facility] program due to mood irritability, worsening depression with passive thoughts of . Pt has hx of bipolar disorder, panic disorder, and alcohol use disorder. Pt participated in [facility] from February 2020 to May 2020. Pt reports having to work part-time at [employer] due to losing other job has impacted her moods because of 24 hour shifts. Pt stated not being able to take her medications properly due to night shifts. Pt endorses increased irritability, decreased sleep, increased energy, reckless driving, and impulsive sex with several men. Pt endorses depressed mood with feelings of worthlessness, hopelessness, anger, anhedonia, decreased concentration and no motivation. - Objectives Objective #1 Stated Objective: Client will learn and implement 2-3 calming skills to reduce overall anxiety and manage anxiety symptoms. Interventions: Therapist will teach client calming/relaxation skills and assign client homework which practices relaxation skills daily.? Discharge Criteria: Client will have achieved this goal when can verbalize at least 2 calming skills and implement those skills.? Target Date: 12/30/20 Review Date: 12/14/20 Objective #2 Stated Objective: Pt will decrease anxious symptoms AEB pt?s score on the DSM 5 cross-cutting measure improve pt?s daily functioning. Interventions: Through groups and individual therapy, pt will be provided education about anxiety?s impact on body and common physiological reaction to anxiety. Therapist will teach pt appropriate breathing techniques and build healthy coping skills to manage daily anxieties. Discharge Criteria: Pt will have met this goal when pt?s score on the DSM 5 cross cutting measure for anxiety has been decreased and per pt?s report daily functioning has improved. Target Date: 12/30/20 Review Date: 12/14/20
--- NOTE | 2020-11-15 16:50 | BH.PSA ---
Source of Information - Presenting Problems/Circumstances Problems, Referral Source, Mental Status, Client: This is an update see psychosocial dated 03/18/20. Pt self-referred to [facility] program due to mood irritability, worsening depression with passive thoughts of . Pt has hx of bipolar disorder, panic disorder, and alcohol use disorder. Pt participated in [facility] from February 2020 to May 2020. Pt reports having to work part-time at [employer] due to losing other job has impacted her moods because of 24 hour shifts. Pt stated not being able to take her medications properly due to night shifts. Pt endorses increased irritability, decreased sleep, increased energy, reckless driving, and impulsive sex with several men. Pt endorses depressed mood with feelings of worthlessness, hopelessness, anger, anhedonia, decreased concentration and no motivation. Past Psychiatric History - Treatment Hx Most recent hospitalization:: [facility] Diagnoses - Diagnoses Diagnosis #1:: Bipolar disorder, most recent episode mixed, severe without [id number] Diagnosis #2:: Panic Disorder Diagnosis #3:: Alcohol Use Disorder Interpretive Summary - Interpretive Summary Interpretive Summary: The patient is a 35-year-old single female referred herself to the [facility] program due to mood irritability and increasing depression with passive thoughts of . The patient has a history of bipolar disorder, panic disorder and alcohol use disorder. She was participating in the [facility] behavioral health program from February to May 2020. The patient states she was doing better but then she lost her job in August 2020 and was approved for disability in August 2020. 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 She last cut herself 1 month ago. She said she felt she had some increased irritability, decreased sleep, increased energy, reckless driving and impulsive sex with several men that she has been doing in recent weeks. She also became more depressed in the last few weeks. She states however that she is not as depressed as what she was when she was here in the [facility] program in the fall. She has financial stress as stated above. Her alcohol use varies and if she does drink alcohol she uses 6-12 beers a day. She has not used any alcohol in the past 3 weeks. She endorses feeling irritable, angry, depressed, hopeless, worthless and having no motivation. She has a slight decrease in appetite and her sleep is about 3 hours a night and she is not that tired. Energy level is normal to high. Concentration is decreased. She admits to passive suicidal ideation at times but no active suicidal ideation and no plan. She denies active thoughts. She sometimes hears whispers which tell her to kill herself. She is worried about her finances and is having panic attacks about 2-3 times a week. She has a history of trauma for which she is from which she has occasional flashbacks, nightmares and reexperiencing. She denies OCD or eating disorder or seizure. Treatment Plan Recommendations - Recommendations Guidelines: Special needs identified to be included in the development of an individualized treatment plan regarding past psychiatric history and treatment, developmental events, family relationships/events/culture, past and/or current educational, occupational, social, and residential experience, and legal status. Recommendations:: Recommend IOP level of care due to mood instability, worsening depression, chronic SI and not functioning at baseline.
--- NOTE | 2020-11-16 09:40 | BH.NA_ITS ---
Physical Data - Vital Signs Pulse Rate: 75 Blood Pressure: 130/66 - Height/Weight Height: 1.57 m Weight:: 95.254 kg Weight in Pounds: 210.0 lbs Current Medication Compliance - Medication Compliance Do you take your medication as prescribed?: Yes Nutritional History - Appetite Nutritional Instructions:: If client shows signs of a swallowing problem, weight change of 10 pounds or more in the last month, or is on a diabetic diet, the physician will review and request a dietitian consult, as appropriate. All unintentional weight loss will be referred to the physician for decision on need for dietitian consult. Describe your appetite:: Fair Additional nutritional information:: Client states appetite varies but states she is trying to lose weight. Functional Assessment - Sleep Pattern Describe any problems with sleeping: Client states her sleep varies. Client states the last few nights she has only slept 6 hours per night. Client states when she works overnight at her job, she does not sleep and this makes her manic. - Activities Comments:: tapping leg most of assessment Sensory/Communication Assess - Communication Problems Do you have difficulty understanding what people are saying?: No Medical Problems/History - Cardiac Conditions Cardiovascular: Hypertension - Musculoskeletal Conditions Musculoskeletal: Other (See comments) Comments:: chronic left knee pain, carpal tunnel - Pain Assessment Do you have acute or chronic pain?: Yes - left knee - Additional History Additional comments:: bipolar, panic disorder, depression, anxiety, PTSD, borderline personality Surgical History - Surgical History Have you had any surgeries? If so, list type and date:: Yes - left partial knee replacement, carpal tunnel x2, T&A Substance Abuse - Substance Abuse Please describe substance abuse in the last 30 days:: Client states she drinks heavily when she is unstable or manic. Client states she hasn't drank a large amount of alcohol in 3 weeks. Client states she smokes cigars at times. Client denies drug use. Client states she drinks pop and energy drinks daily. Mental Status Summary - Mental Status Significant Findings/Observations on Appearance and Mood:: Client is alert and oriented x4. Client is casually groomed with good hygiene. Client is wearing a mask due to pandemic. Client is cooperative with assessment and makes fair eye contact. Client's voice is normal rate and volume. Client does tap leg during most of assessment and appears mildly anxious. Client makes logical associations. Client denies delusions/hallucinations and denies SI this day, stating she has daily fleeting SI. Suicide Assessment - Suicidal Ideation Are you currently or have you been suicidal in the past?: Yes - denies SI this day Suicidal Intentional Rating Scale (SIRS): Suicidal thoughts (past) Physician Notification: If Active suicidal thoughts/Will not contract for safety is checked, contact physician and document in the Physician Notification section below. Past Psychiatric History - MH Treatment Hx Past Psychiatric Medications:: per chart- Saphris, Doxepin, Lamictal, Wellbutrin, Lexapro, Zyprexa, Prazosin, Trazodone, Effexor, Zoloft Age of first mental health symptoms: Client states she was diagnosed with depression in April 2019. Client states she has since been diagnosed with bipolar, panic disorder, borderline personality, PTSD, and anxiety. Describe (age, circumstance, etc) any past hospitalizations: Client was hospitalized 6 times in 2019 for SI. Current providers for mental health treatment (counselor, psychiatrist, heel caser, etc.): Dr. De León at [facility] [address] [facility] Risk Assessment - Age Age: Less than 60 - Mental Status Mental Status: Willing & able to ask for assistance when needed - Physical Status Physical Status: No problems - Impairments Impairments: None - Elimination Elimination: Continent AND independent - Gait or Balance Gait or Balance: Walks independently - Hx of Falls History of falls in the past 6 months: No known history - Medications/Substances Psychotropics:: Antipsychotics, Mood stabilizers Others:: Antihypertensives Medications/substances used within the past 24 hours or ordered to administer: 3 or more of the medications/substances listed above - Total Score Total Points:: 2 RN Summary of Impressions - Impressions Recommendations: Include psychiatric and medical issues, treatment planning recommendations, and discharge planning needs. Impressions: Psychiatric Issues: Bipolar disorder, most recent episode mixed, severe without psychosis; panic disorder; alcohol use disorder; strong cluster B traits. - Level of Care How do the client's current symptoms and functional deficits support need for this level of care?: Client was self-referred to [facility] after previously being in this IOP in 2019. Client states she lost her full-time job at the end of August 2020 and mental health symptoms have increased since then. Client states she works part-time at a [employer], which can be a trigger for mental health symptoms. 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 Client states symptoms of carlo include wreckless driving and promiscuity as well as not sleeping and increased energy. Client also endorses mood instablity, increased irritability and impulsiveness. Client states stressors include work and family issues. IOP will promote gains and prevent further decompensation while providing social support and skills training.
--- NOTE | 2020-11-16 10:10 | BH.SGPN.GN ---
Behaviors/Verbalizations/Mental Status: []Client alert and oriented, neatly dressed and groomed. Eye contact good. Motor activity appropriate. Speech within normal limits. Affect flat, mood agitated. Thoughts linear, logical, no signs of hallucinations or delusions. Client Response/Progress/Benefit: []Pt was a mostly passive participant in group discussion and psychoeducation, but did share at the beginning of session.Group was primarily educational and introduced and gave examples of the 10 cognitive distortions. Pt provided one example of personal experience using the cognitive distortion, predicting the future. Pt reported she often does this with her father which leads to pt avoiding talking to him about mental health. Benefited from education and increased awareness of cognitive distortions and the role that they play in negative thoughts and emotions. No progress to document as client recently started IOP. Will continue IOP tx to prevent decompensation, improve mood stability, and increase self-care. Narrative Note: []
[2020-11-16 10:12] VITALS: BP 130/66; PULSE 75
--- NOTE | 2020-11-16 11:13 | BH.SGPN.GN ---
Behaviors/Verbalizations/Mental Status: [] Client alert and oriented, casual dress, hygiene tended to. Eye contact fair to good. Motor activity WNL. Speech within normal limits. Affect constricted. Mood anxious, depressed. Thoughts linear, logical, no signs of hallucinations or delusions. Client Response/Progress/Benefit: [] Client was a mostly passive participant AEB client only providing limited input during discussion, appeared to listen attentively to peers and completed worksheet. Client attentive during psychoeducation and additional discussion on cognitive distortions. Client appeared to listen to discussion on how to reframe distorted thoughts into more realistic, rational statements. Client did well to take on more of a leadership role in small group setting and worked with the group to reframe the example thought. Client shared her distorted thought is I am never going to get better?. With help from group client able to reframe distorted thought to I have made progress in the past and can continue to work on making progress now?. Client seemed to benefit from practicing identifying and reframing distorted thoughts. Client is to continue IOP to increase use of healthy coping, improve boundaries, and prevent decompensation. Narrative Note: []
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
--- NOTE | 2020-11-16 13:44 | BH.DR.ITP ---
Initial Treatment Plan - Patient Information Visit Information: ADMISSION DATE: EXPECTED LOS: 4-6 weeks - Problems/Symptoms Problem #1:: Mood instability Symptom:: Irritability, depression, hopelessness, worthlessness, anhedonia, biological disruption of sleep, decreased concentration, guilt, passive suicidal ideation, impulsive sexual behavior and reckless behavior. Problem #2:: Anxiety Symptom:: Ruminations, worry, panic attacks, flashbacks, reexperiencing, nightmares
--- NOTE | 2020-11-16 14:11 | BH.MDN ---
Multi-Disciplinary Note - Note 30-min Individual Time Started:: 12:10 Date: 11/16/20 Purpose of session/treatment goals addressed:: Purpose of session was to assess pt's current symptoms and stressors. Additional goal was to establish treatment goals for IOP. Eye Contact:: Fair Motor Activity:: Appropriate Appearance:: Casual Speech:: Appropriate Mood:: Anxious, Depressed Affect:: Flat Thoughts:: Linear, Logical, No evidence of hallucinations/delusions noted Staff Interventions:: Therapist used open ended questions to elicit pt's current symptoms and stressors. Processed stressor, helping pt identify strateiges to manage. Collaborated with pt to identify treatment goals for IOP. Eliicted small goal for pt to complete. Provided support by validating emotions and actively listening. 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 Pt stated her dad has no understanding nor desire to understand mental health. Reports dad doesn't support pt getting treatment and doesn't like that she is approved for diability. 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 Pt able to recognize working for her dad and at the [employer] negatively impacts her mental health. Stated she has noticed manic like symptoms in the past two weeks. Reported working 24 hour shifts at the [employer] mess up her sleep schedule which can trigger carlo. Pt unsure she is ready to give up the [employer] even when she starts getting her disability money. Pt states unsure what other job she can do. Pt able to identify her stressors and problems but struggled with idnetifying what she wants to work on. When asked if she wants to work on a certain stressor pt would give reasons why she couldn't work on that stressor. After further discussion pt identified wanting to work on setting small boundaries with her dad. Pt stated she will tell her dad that she cannot work on Saturday because working Saturday night at the [employer] and has a 24 hour shift starting saturday evening. At end of session pt asked therapist If I self-harm will I get kicked out of the program. Therapist worked with pt to discuss how self-harm peptuates depressive symptosm and hinders treatment progress. Risks/Concerns:: Pt reports suicidal thoughts, denies plan or intention to date. States she can keep herself safe. Agreeable to go to nearest emergency room or call 911 if can't maintain safety. Progress Toward Goals/Plan:: No progres noted given pt just started IOP. Sessio focused on identifying treatment goals. Pt to continue IOP to increase healthy coping skills, improve emotional regulation and prevent decompensation. Time Stopped:: 12:45
--- NOTE | 2020-11-17 09:06 | BH.SGPN.GN ---
Behaviors/Verbalizations/Mental Status: []Eye contact is fair to good. Alert and oriented. Motor activity is restless, bouncing knee. Appearance is neat and casual. grooming is appropriate. Speech is Appropriate. Mood is anxious and depressed. Affect is constricted. Thoughts are linear and logical. No evidence of psychosis or hallucinations. SI reported as 3/5 for ideation and 2/5 for intent. This is elevated from previous date and pt willing to meet with individual therapist to further assess. Client Response/Progress/Benefit: []Pt engaged in session AEB listening to others and willingness to share thoughts and feelings with group. Pt noted feeling ?anxious? on this date and attributes this to ongoing difficulties with healthy boundary setting. 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 Expressed that she has been trying to use self-advocacy and practice saying no but continues to struggle in this area. Pt noted ongoing issues with coping in healthy ways with identified stressors and indicated engaging in unhealthy coping the previous night. Did not nature of what unhealthy coping skills were used. Client receptive of supportive feedback provided by group, willing to meet with therapist individually to further assess risk. Client has historically struggled to implement healthy coping and challenge urges to engage in self-sabotaging behaviors which may impede ability to make consistent progress. Recommended continued IOP tx to improve application of healthy coping behaviors, maintain safety, and prevent decompensation. Narrative Note: []
--- NOTE | 2020-11-17 10:15 | BH.SGPN.GN ---
Behaviors/Verbalizations/Mental Status: []Client alert and oriented, casually dressed and groomed. Eye contact fair. Motor activity appropriate. Speech within normal limits. Affect constricted, mood dysthymic and anxious. Thoughts linear, logical, no signs of hallucinations or delusions. Client Response/Progress/Benefit: []Client responded well to session, appeared to actively listen to peers as client nodded head in agreement. Client provided to discussion at the end of group. Appeared to benefit from group as client connected with peers on how anxiety impacts physical symptoms, cognitive thinking, and safety behaviors. Client stated ?I cannot sit still? when feeling anxious, and thinks of what-if scenarios in her head as an effect of anxiety. Client appeared anxious in group as client was bouncing her knee during group. Progress noted as client shared and connected to peers. Will continue IOP to promote the use of healthy coping skills, prevent decompensation, and reduce negative thinking. Narrative Note: []
--- NOTE | 2020-11-17 11:15 | BH.SGPN.GN ---
Behaviors/Verbalizations/Mental Status: []Client alert and oriented, casually dressed and groomed. Eye contact fair. Motor activity appropriate. Speech within normal limits. Affect constricted, mood depressed. Thoughts linear, logical, no signs of hallucinations or delusions. Client Response/Progress/Benefit: []Client was a mostly passive participant in group discussion AEB providing limited input throughout. Client reported safety behaviors she engages in includes: avoiding going to the grocery store, excuses to not hangout with others, and drinking alcohol. Attentive during psychoeducation on anxiety management skills. The group practiced belly breathing. Client identified wanting to practice belly breathing at least 3 times in the next week. Appeared to benefit from practicing in the moment coping skills and identifying personal mindfulness activities to manage anxiety independently. Client will continue IOP tx to improve daily functioning, combat distortions, and prevent decompensation.
--- NOTE | 2020-11-17 12:47 | BH.COMM ---
Communication Note - Communication with Client Communication Note: Therapist met with client to further assess for risk as client indicated elevated scores for suicidal ideation and intent on daily symptom tracker. Upon further assessment, client indicated she is not actively suicidal and is actually struggling more with urges to self-harm. Denies suicidal plan or intent behind these urges. Reports self-harming via cutting last night and noted she is unsure of why this is unhealthy. Discussed potential negative impacts of self-harming on mental health progress. Reviewed alternative healthy skills she could use instead. Client reports having a razor blade in her truck which she had intended to use for self-harming purposes. Willing to dispose of razor blade with therapist. Willing to safety plan for evening. Denies any other means for self-harming. Reports working this afternoon which is a protective factor and will keep client from self-harming behaviors. Future oriented, discussing plans to go to work and attend IOP group tomorrow. Willing to seek emergency medical tx should she feel unable to maintain safety at any time.
--- NOTE | 2020-11-21 10:00 | BH.SGPN.GN ---
Behaviors/Verbalizations/Mental Status: []Client alert and oriented, casually dressed and groomed. Eye contact fair to good. Motor activity appropriate. Speech within normal limits. Affect congruent, mood depressed though improved during activity. Thoughts linear, logical, no signs of hallucinations or delusions. Client Response/Progress/Benefit: [] Client was a mostly passive participant AEB struggling with contributing to discussion, but did well with taking notes and provided increased engagement in group activity. Continues to appear to struggle with distorted thoughts which impact ability to fully engage at times. Client appeared to connect with the topic of pitfalls AEB nodding on various occasions throughout. She remained attentive as group discussed barriers that prevent from choosing a healthier path to mental wellness such as pitfalls. Group worked together to identify examples of personal pitfalls which included; resentment, anger, isolating, distortions, and unhealthy coping. Client identified difficulties in accepting change and poor boundaries as personal pitfalls that have inhibited progress in the past. Engaged more during the activity when encouraged by group AEB taking direction from fellow participants and giving feedback throughout. Client benefited from group as she learned to better identify potential barriers to improving mental health symptoms. Client will continue IOP tx to increase the consistent application of healthy coping skills, reduce mental health sx, maintain stability, and prevent decompensation. Narrative Note: []
--- NOTE | 2020-11-21 11:10 | BH.SGPN.GN ---
Behaviors/Verbalizations/Mental Status: []Client alert and oriented, neatly dressed, hygiene tended to. Eye contact good. Motor activity appropriate. speech and tone WNL. Affect constricted, mood mostly dysthymic, but then having moments of elevated mood. Thoughts linear, logical, no signs of hallucinations or delusions. Client Response/Progress/Benefit: []Client receptive of session, engaged throughout AEB client listening to discussion and taking notes. Client completed a worksheet where client identified personal pitfalls impacting mental health progress. Client?s pitfalls included: overcommitting, all or nothing thinking, lack of boundaries, isolation, and lack of communication. Attentive and contributing during group brainstorm of strategies to overcome pitfalls. Client will work on overcoming her pitfall of overcommitting by saying no more at work. Client recognizes that her current work schedule promotes carlo. Benefited from identifying personal pitfalls and strategies to overcome these pitfalls. Client continues to struggle with finding balance at work and setting boundaries. Will continue IOP tx to improve mood stability, increase self-care, and reduce self-sabotaging behaviors. Narrative Note: []
--- NOTE | 2020-11-22 09:00 | BH.SGPN.GN ---
Behaviors/Verbalizations/Mental Status: []Eye contact is fair to good. Alert and oriented. Motor activity is appropriate. Appearance is casual. grooming is appropriate. Speech is Appropriate. Mood is depressed. Affect is congruent. Thoughts are linear and logical. No evidence of psychosis or hallucinations. SI reported at a rate of 3/5 which is consistent with client baseline. Intent reported as a 1/5 which is also consistent with baseline. Client Response/Progress/Benefit: [] Pt engaged in session AEB listening to others and willingness to share thoughts and feelings with group. Pt noted he was ?struggling? on this date and shared this was due to continued difficulties in setting healthy boundaries. Expressed overworking herself and poor boundaries has been her primary stressor impacting mental health. Continues to disqualify strategies she can use to improve boundary setting which continues to impede progress. 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 Identified current skills used as: thought challenging and deep breathing. Shared she continues to struggle with implementing healthy coping skills. Recommended continued IOP tx to improve mental health sx management, continue to promote healthy change behaviors and boundary setting, and prevent decompensation. Narrative Note: []
--- NOTE | 2020-11-22 10:10 | BH.SGPN.GN ---
Behaviors/Verbalizations/Mental Status: []Client alert and oriented, neatly dressed and groomed. Eye contact good. Motor activity appropriate. Speech within normal limits. Affect flat, mood dysthymic. Thoughts linear, logical, no signs of hallucinations or delusions. Client Response/Progress/Benefit: []Client responded well to session, engaged in activity, but declining to share in discussion. Client nodded several times when the group discussed how setbacks have impacted them. Client agreed that setbacks are a part of life, but setbacks do not have to equate failure. Group discussed that one?s reaction and mindset following setbacks can either be advantageous or harmful. Group discussed how fear of failure can led to giving up or not trying. Client appeared to benefit from gaining awareness of the impact fear of failure can have on one?s mental health and wellbeing. Will continue IOP to increase mood stability, reduce impulsive decision making, and improve boundaries. Narrative Note: []
--- NOTE | 2020-11-22 11:10 | BH.SGPN.GN ---
Behaviors/Verbalizations/Mental Status: []Client alert and oriented, casually dressed and groomed. Eye contact good. Motor activity appropriate. Speech within normal limits. Affect constricted, mood dysthymic. Thoughts linear, logical no signs of hallucinations or delusions. Client Response/Progress/Benefit: []Client responded well to session, participating during the group activity and willing to complete the worksheet. 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 Client able to identify barriers that reinforce fear of failure which included: high expectations and telling self I'm a failure. Client attentive during discussion of the different strategies to help overcome fear of failure. Client reported to combat fear of failure she will remind herself of the importance of trying even if have failed before. Client appeared to benefit from increasing insight to barriers and learning healthy coping skills. Will continue IOP tx to promote use of healthy coping skills, combat distortions, and prevent decompensation.
== END 2020-11-23 23:59 ==
LOC: BHIOP 09:00
PROVIDERS: Referring Provider Psychiatry & Neurology Psychiatry; Visit Provider Psychiatry & Neurology Psychiatry
DX: F31.63 Bipolar disorder, current episode mixed, severe, without psychotic features (principal); F41.0 Panic disorder [episodic paroxysmal anxiety]; Z72.89 Other problems related to lifestyle; Z62.810 Personal history of physical and sexual abuse in childhood; Z79.899 Other long term (current) drug therapy
CPT/HCPCS: H0035; 90832; 90853

== ENCOUNTER 2020-11-24 09:00 | Outpatient (RCR) | payer BC, SELFPAY ==
[2020-11-24 00:54] VITALS: BP 130/66; PULSE 75
--- NOTE | 2020-11-24 09:00 | BH.SGPN.GN ---
Behaviors/Verbalizations/Mental Status: []Eye contact is fair. Alert and oriented. Motor activity is appropriate. Appearance is casual. grooming is appropriate. Speech is Appropriate. Mood is anxious and depressed. Affect is congruent. Thoughts are linear and logical. No evidence of psychosis or hallucinations. Report SI at rate of 2/5 which is consistent with baseline. Client denies plan or intent as of this date. Client Response/Progress/Benefit: [] Pt engaged in session AEB listening to others and willingness to share thoughts and feelings with group. Pt noted feeling ?exhausted? on this date and attributes it to overworking herself this week. 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 Able to identify this as self-sabotaging behavior but struggles with justifying working over sleeping. Receptive of being challenged on possible distortions. Able to identify skills used as managing her emotions when frustrated by taking a step back and continuing to come to IOP tx. Progress remains limited due to ongoing difficulties in boundary setting and inconsistent implementation of skills learned. Recommended ongoing IOP tx to improve continue to promote healthy change behaviors, consistent coping skill application, improve mood stability, and prevent decompensation. Narrative Note: []
--- NOTE | 2020-11-24 10:15 | BH.SGPN.GN ---
Behaviors/Verbalizations/Mental Status: []Client alert and oriented, casually dressed and groomed. Eye contact good. Motor activity appropriate. Speech within normal limits. Affect constricted, mood dysthymic. Thoughts linear, logical, no signs of hallucinations or delusions. Client Response/Progress/Benefit: []Client responded well to session, attentive during discussion, engaged in activity and provided some input during discussion. During discussion about quote client stated everything is painful so we might as well make a positive change. Client explained change can be anxiety provoking but it can also be painful to stay the same so could be a motivator to change. Worked with the group to identify barriers to making change. Client appeared to connect with others about the challenges of making change AEB client nodding her head. Engaged in activity about identifying emotions that impact change process. Attentive during education on change cycle. Benefited from increased awareness and understanding of emotions, benefits, and barriers related to change. Will continue IOP tx to increase use of healthy coping, challenge distorted thoughts and prevent decompensation.
--- NOTE | 2020-11-29 10:10 | BH.SGPN.GN ---
Behaviors/Verbalizations/Mental Status: []Alert and oriented. Eye contact is good. Motor activity is appropriate. Appearance is casual. Speech is Appropriate. Mood is euthymic. Affect is full. Thoughts are linear and logical. No evidence of psychosis. Client Response/Progress/Benefit: []Pt was an active participant in group discussion and activity. Connected with quote.? Attentive during psychoeducation.? Pt worked with group to identify forces that can impact growth and overall mental health. Pt reported setting boundaries and using coping skills as positive forces. Pt was doing a lot of nodding during the garden metaphor and how different forces work together to get growth. Participated in the activity and took a leadership role.? Pt benefited from increased awareness of the impact positive and negative forces can have on mental health and personal growth. Progress noted in client?s improved mood today and positive outlook. Will continue IOP tx to promote mood stability, reduce self-sabotaging behaviors, and increase the use of coping skills. Narrative Note: []
--- NOTE | 2020-11-29 11:20 | BH.SGPN.GN ---
Behaviors/Verbalizations/Mental Status: []Client alert and oriented, casually dressed and groomed. Eye contact good. Motor activity appropriate. Speech WNL. Affect flat, mood depressed. Thoughts linear, logical, no signs of hallucinations or delusions. Client Response/Progress/Benefit: []Pt engaged during session AEB pt providing input at times during session, completed worksheet and listened attentively to peers. Group processed the activity and identified positive and negative forces impacting ability to complete the challenge. Pt was attentive during psychoeducation and appeared to benefit from increased insight on the impact of negative and positive forces on mental wellness. Identified positive forces as: family, communication, going to the gym, and working on setting boundaries. Identified negative forces: certain family members, lack of communication, lack of self-care, difficulty setting boundaries, and emotional dysregulation. Identified wanting to focus on improving self-care by spending at least 5-10 minutes engaging in self-care daily. Pt recommended continued IOP tx to increase use of healthy coping skills, continue to challenge negative thoughts, and prevent decompensation. Narrative Note: []
--- NOTE | 2020-11-29 15:40 | BH.MDN ---
Multi-Disciplinary Note - Note 60-min Individual Time Started:: 08:20 Date: 11/29/20 Purpose of session/treatment goals addressed:: Purpose of session was to address goals 1 and 2 from master treatment plan. Eye Contact:: Fair Motor Activity:: Appropriate Appearance:: Casual Speech:: Appropriate Mood:: Anxious, Depressed Affect:: Constricted Thoughts:: Linear, Logical, No evidence of hallucinations/delusions noted Staff Interventions:: Therapist used open ended questions to elicit pt's current symptoms and stressors. Processed barriers that keep pt from forming healthy relationships. Provided psychoeducation about Borderline Personality. Worked with pt to identify what symptoms she relates to and how it impacts her functioning. Collaborated with pt to identify goal for the day. Client Response:: Pt responded well to session AEB pt openly sharing thoughts and feelings. Pt stated she doesn't believe she deserves to be happy. Pt stated in the last two years she has screwed up things with family, screwed things up with , and I can't hold down a job. With help pt able to challenge her distorted thought patterns, recognizing she has been able to maintain job at [employer]. Pt stated she just feels like a failure. Pt connected how these thought patterns reinforce depressive symptoms. Pt connected with majority of the symptoms of Borderline Personality Disorder. Pt stated she has a difficult time with relationships, especially if she thinks it is getting serious. Pt reported she feeling nervous about a relationship in the past she has purposefully done something she knows the other person doesn't like as a way to push that person away. Pt reported in a past relationship she knew her boyfriend didn't want to have kids so when she thought it was getting too serious she kept talking about wanting to have kids. Pt stated this ended the relationship. Pt states she fears the other person will eventually leave her so it's better if she ends the relationship first. Pt connected with self-destructive type when learning more about BPD. Pt stated she has diffiuclty managing her anger which results in her throwing stuff or becoming easily frustrated then giving up. Pt reported her goal for the week is to take a break whenever she is feeling frustrated before she does something destructive. Risks/Concerns:: Pt reports chronic suicidal ideation, denies current suicidal intent and plan. Future focused. Agreeable to go to nearest emergency room or call 911 if feel unable to maintain safety. Progress Toward Goals/Plan:: Progress noted with pt's increased awareness of symptoms of BPD and impact on functioning. Pt reporting decrease in intensity of suicidal thoughts. Pt to continue IOP to stabilize moods, challenge distorted thoughts and prevent decompensation. Time Stopped:: 09:20
--- NOTE | 2020-11-30 09:00 | BH.SGPN.GN ---
Behaviors/Verbalizations/Mental Status: []Client alert and oriented, casual in appearance. Eye contact fair. Motor activity appropriate. Speech within normal limits. Affect flat. mood depressed. Thoughts linear, logical, no signs of hallucinations or delusions. Pt indicated a 3/5, with 5 being severe, for suicidal thoughts and a 2/5 for suicidal intent. This is below pt's baseline for SI and intent. Pt does not appear to be imminent suicidal risk. Client Response/Progress/Benefit: [] Patient was intently to others and share thoughts and feelings. 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 Patient reported her goal was to only stay for a little bit but ended up being tricked by her dad to stay longer. 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 Reported self harming did not provide emotional release that usually does. Stated she does not know other coping skills to replace self harming. Reported she is feeling depressed and cannot identify any positives. Decomposition and progress as evidenced by patient reporting self harming, her feeling depressed, and continuing to engage in self sabotage behaviors. Patient to continue IOP level of care to increase utilization of healthy coping skills consistently, improve emotional regulation, and prevent decompensation. Narrative Note: []
--- NOTE | 2020-11-30 10:00 | BH.SGPN.GN ---
Behaviors/Verbalizations/Mental Status: [] Eye contact is good. Motor activity is appropriate. Appearance is casual. Speech is Appropriate. Mood is depressed. Affect is flat. Thoughts are linear and logical. No evidence of psychosis. Client Response/Progress/Benefit: [] Patient was an active participant in group discussion and activity. Provided insight into discussion on defining self-care and its benefits for mental wellness. Also participated and provided feedback on consequences of not performing self-care which included; consistent stress,increased irritability, physical health issues, and negative impact to relationships, work, and other aspects of functioning. After they identified the benefits and consequences group identified the obstacles and myths associated with self-care which keep them from performing self-care. Peers and pt identified 10 myths of self-care which included; You don't deserve it; You don't need it; Can't do it unless everything else is completed; Its selfish; Time-consuming; [place]; It has to be fun; Self-care ignores others. Pt then joined a small group and challenged these myths among its members. Benefited from group by increasing awareness and benefits of self-care. Pt will continue with IOP to prevent decompensations, maintain safety, and decrease unhealthy coping. Narrative Note: []
--- NOTE | 2020-11-30 11:10 | BH.SGPN.GN ---
Behaviors/Verbalizations/Mental Status: []Client alert and oriented, casually dressed, hygiene appeared to be tended to. Eye contact good. Motor activity appropriate. Speech within normal limits. Affect flat, mood dysthymic. Thoughts linear, logical, no signs of hallucinations or delusions. Client Response/Progress/Benefit: []Client engaged participant AEB client taking notes during discussion and listened attentively to peers. Participated in group discussion on the various areas of self-care, benefits, and types of self-care activities for each area. Client completed worksheet in which client identified current self-care practices and what self-care activities client wants to start using. Client reported she will focus on improving physical self-care as client believes this will help client feel more energized and increase focus. Client stated she will do this by eating 2-3 meals a day. Appeared to benefit from reflecting on the area of self-care client can improve and setting a small goal. Client continues to struggle with seeing prolonged progress due to self-reported self-sabotaging behaviors. Will continue IOP tx to prevent decompensation, reduce self-sabotaging behaviors, and improve functioning. Narrative Note: []
--- NOTE | 2020-12-02 09:00 | BH.SGPN.GN ---
Behaviors/Verbalizations/Mental Status: []Client alert and oriented, casually dressed. Eye contact fair. Motor activity appropriate. Speech within normal limits. Affect constricted, mood anxious and euthymic. Thoughts linear, logical, no signs of hallucinations or delusions. Reviewed client?s symptom tracker, client scored herself below her baseline for suicidal ideation and denied any intention or plan as of 12/02/20. Client Response/Progress/Benefit: []Client responded well to session, engaged throughout and participated in group discussion. Client reported feeling ?stressed? this morning. Client reported she attempted to set a boundary with her father, but it was not reciprocated well on his end. Client asked her mother for help but her mother denied to help between the relationships between client and her father. Client stated ?it is hard to only view him as my boss, because I want his love and attention like a normal child.? 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 Progress noted as client was able to recognize barriers to meeting goals and continued to use healthy coping skills. Client stated she would continue to work on her goal of practicing self-care like taking walks, reading, and sleeping. Client was unable to identify any mental health wins. Appeared to benefit from group as client connected with peers. Will continue IOP to promote the use of healthy coping skills, maintain healthy boundaries with father, and prevent decompensation. Narrative Note: []
--- NOTE | 2020-12-02 10:10 | BH.SGPN.GN ---
Behaviors/Verbalizations/Mental Status: []Client alert and oriented, casually dressed and groomed. Eye contact good. Motor activity appropriate. Speech within normal limits. Affect congruent, mood anxious and euthymic. Thoughts linear, logical, no signs of hallucinations or delusions. Client Response/Progress/Benefit: []Client was an engaged participant AEB taking notes and contributing to discussion when prompted; however, reduced input compared with prior sessions. Connected with group topic of perspective and the impacts of one?s perspective on mental health. Client noted struggling with family beliefs on mental health and past negative experiences impacting her perspective of self. Client worked with the group to identify how a negative perspective can impact mental health which included: self-fulfilling prophecy, avoiding or giving up on treatment, not opening up to others, and withdrawing or isolating. Shared not trying as hard in treatment in past due to negative perspective. Client appeared to benefit from increasing understanding of mental health benefits of a positive perspective and potential consequences to progress when perspective is negative. Progress noted in self-report of improved engagement in tx process. Continues to struggle with combating distortions and boundaries. Client will continue IOP tx to improve healthy coping and prevent decompensation. Narrative Note: []
--- NOTE | 2020-12-02 11:10 | BH.SGPN.GN ---
Behaviors/Verbalizations/Mental Status: []Eye contact is good. Alert and oriented. Motor activity is appropriate. Appearance is casual. grooming is appropriate. Speech is Appropriate. Mood is stressed. Affect is congruent. Thoughts are linear and logical. No evidence of psychosis or hallucinations. Client Response/Progress/Benefit: []Pt engaged participant AEB pt providing input throughout session, listening attentively to peers and completing strengths exploration handout. Pt did struggle to identify strengths and see how these strengths could help her mental health tx. Pt shared some of the strengths she identified were honesty, fairness, and bravery. Pt stated she is currently using the strength of bravery to work on reaching out to more people and not revert to old patterns. Pt seemed to benefit from increased awareness of personal strengths and improved understanding how perspective can impact view of self. Pt is to continue IOP to reduce self-sabotaging behaviors and improve distress tolerance skills. Narrative Note: []
--- NOTE | 2020-12-05 09:03 | BH.SGPN.GN ---
Behaviors/Verbalizations/Mental Status: []Client alert and oriented, casually dressed. Eye contact fair. Motor activity appropriate. Speech within normal limits. Affect constricted, mood dysthymic and anxious. Thoughts linear, logical, no signs of hallucinations or delusions. Reviewed client?s symptom tracker, client reports a 3/5, with 5 being severe, for suicidal thoughts and a 2/5 for suicidal intent. IOP therapist will meet with pt to assess lethality. Client Response/Progress/Benefit: []Pt responded well to session AEB pt listening attentively to peers and openly sharing thoughts and feelings. Pt reported gameplan was to do more self-care and if get mad to walk away. 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 Pt reported when she returned to what was frustrating her she was able to resolve the issue. Pt reported some progress with engaging in self care, but more work needed. Pt stated she is frustrated she doesn't have an emotional attachment with her dad. Expressed feeling more suicidal and not taking her medications the past couple of days. With therapist support recognizes she is sabotaging herself. Decompensation noted AEB pt reporting increased suicidal thoughts and medication non-compliance. Pt showing progress with following through on goals from last week. Pt to continue IOP to stabilize moods, increase consistent use of healthy coping and prevent decompensation. Narrative Note: []
--- NOTE | 2020-12-05 09:04 | BH.MDN ---
Multi-Disciplinary Note - Note 45-min Individual Time Started:: 12:04 Date: 12/05/20 Purpose of session/treatment goals addressed:: Purpose of session was to address goal 1 from treatment plan. Eye Contact:: Fair Motor Activity:: Appropriate Appearance:: Casual Speech:: Appropriate Mood:: Anxious, Irritable, Dysthymic Affect:: Constricted Thoughts:: Linear, No evidence of hallucinations/delusions noted Staff Interventions:: Therapist used open ended questions to elicit pt's current symptoms and stressors. Reviewed goal from last week. Processed stressor about relationship with dad. Elicited what pt wants from the relationship and discussed strategies to improve relationship. Challenged pt's self-destructive behavior, helping pt recognize negative impact choices are having on mental health. Assessed suicidal lethality. Provided homework for pt to think about what would want to talk to dad about to improve relationship. Client Response:: Pt reported she did work on goal of taking a break when feeling agitated. 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 Pt stated she started to treat her dad as if he was her boss instead of as her dad. Pt reported initially it seemed to be helping to remove the emotion from it. However pt reported she is struggling with this because she still wants a relationship with her dad. Pt expressed constantly seeking his approval which she has recieved some positive reinforcement in the past. Through discussion with therapist pt expressed concern about directly address her dad about wanting a better relationship. Pt expressed anxiety about how he will respond, fearing that he won't care. With help from therapist pt recognizes continuing to seek validation from dad is sabotage because she is expecting something he has rarely given. Reported she knows directly talking to him would be the best but not sure she is ready for that. Pt reported she has been struggling the past cuople of days with haivng more suicidal thoughts but denies current intention or plan. Pt stated she hasn't taken her medication in 2-3 days for no justifiable reason. Pt reported stress about dad and stress at work contributed to her self-destructive behavior. Pt reported taking medication last night and will continue to take her medication. Agreeable to work on goal of thinking what she wants to say to dad about their relationship. Risks/Concerns:: Pt reports chronic suicidal ideation, denies current suicidal intent or plan. Pt expresses ability to keep self safe. Agreeable to call 911 or go to nearest emergency room if feel unable to maintain safety. Progress Toward Goals/Plan:: Progress noted with pt reporting increased use of healthy coping skills like reading and getting outside. Pt cotninues to struggle with distorted thoughts, medication non-compliance at times, and difficulty consistently applying skills. Pt to continue IOP to stabilize moods, increase consistent use of healthy coping and prevent decompensation. Time Stopped:: 12:55
--- NOTE | 2020-12-05 10:10 | BH.SGPN.GN ---
Behaviors/Verbalizations/Mental Status: [] Eye contact is good. Motor activity is appropriate. Appearance is casual. Speech is Appropriate. Mood is depressed. Affect is flat. Thoughts are linear and logical. Client Response/Progress/Benefit: [] Pt was an active participant in group discussions and activity. Attentive during psychoeducation and provided insight into obstacles in the way of mental wellness. Pt shared her picture depicting her current mental health reality with the group. She described her current reality as being overwhelmed with cognitive distortions, negative self-talk, and negative emotions. Pt's desired reality has her obstablces being smaller in size and removing toxic people and setting boundaries. Benefited from taking look at current mental health state and obstacles for progress. Will continue in IOP to increase maintain safety and prevent decompensation. Narrative Note: []
--- NOTE | 2020-12-05 11:10 | BH.SGPN.GN ---
Behaviors/Verbalizations/Mental Status: []Client alert and oriented, neatly dressed and groomed. Eye contact good. Motor activity appropriate. Speech within normal limits. Affect flat, mood dysthymic. Thoughts linear, logical, no signs of hallucinations or delusions. Client Response/Progress/Benefit: []Client was an active participant in group discussion and activity. Engaged during activity and provided ideas on how to cope with internal barriers that keep clients stuck from moving towards goals. Barriers identified by client included: fear of failure, unrealistic expectations, and lack of boundaries. Strategies identified for overcoming these barriers included: self-compassion, thought challenging, affirmations, and small goals. Client wants to work on overcoming the barrier of unrealistic expectations by using positive self-talk and setting smaller goals. Benefited from group by identifying obstacles and solutions to desired reality. Will continue tx as client continue continues to struggle with achieving prolonged mood stability. Narrative Note: []
--- NOTE | 2020-12-08 11:15 | BH.SGPN.GN ---
Behaviors/Verbalizations/Mental Status: []Client alert and oriented, casually dressed and groomed. Eye contact good. Motor activity appropriate. Speech within normal limits, quiet. Affect constricted, mood dysthymic. Thoughts linear, logical, no signs of hallucinations or delusions Client Response/Progress/Benefit: []Client responded well to session, taking notes and contributing. Group discussed the different categories of coping skills which included distraction, emotional release, grounding, self-love, and thought challenging. Client participated in creating a coping skills ?menu? from the five categories of coping skills. Client's coping skill menu included: exercise, hot yoga, figure eight breathing, keeping track of wins, and setting timers to say nice things about self. Client reported some of these skills are new and others are skills she wants to use more often. Appeared to benefit from increasing repertoire of healthy coping skills. Will continue tx to further reduce negative thinking and self-sabotaging behaviors. Narrative Note: []
--- NOTE | 2020-12-08 15:22 | BH.MDN_ITS ---
Multi-Disciplinary Note - Note 30-min Individual Time Started:: 09:15 Date: 12/08/20 Purpose of session/treatment goals addressed:: Pt requested to be seen this morning. Purpose of session was to process current stressors, working on goal 2 from treatment plan. Eye Contact:: Fair Motor Activity:: Appropriate Appearance:: Casual Speech:: Appropriate Mood:: Anxious Affect:: Constricted Thoughts:: Linear, Logical, No evidence of hallucinations/delusions noted Staff Interventions:: Therapist utilized open ended questions to elicit pt's current symptoms and stressors. Processed recent stressor of having conversation with dad about their relationship. Assisted pt with recognizing positives from the conversation. Helped pt identify what can do moving forward to continue working on relationship. Client Response:: Pt reported she did have the conversation with her dad about their relationship. Pt stated she had wrote down what she wanted to say to him and then he took the letter and read it. Pt reported she expressed how she feels hurt when her dad makes rude comments about her mental health. Pt stated she told him that she wants a better relationship, wishing he could be more supportive. Pt reported after reading the letter he dad told her that he doesn't mean to hurt her feelings when he makes comments about her mental health, expressed not know what he can do to help her. Pt reported she didn't know what to think of the conversation and has been avoiding dad since the talk. With help from therapist pt able to recognize that her dad is expressing not intentionally saying things to make her feel bad and admits to not understanding mental health. Pt connected with idea of letting dad know when he says something that is hurtful then telling him how he could be supportive. Risks/Concerns:: Pt reports chronic suicidal thoughts, denies suicidal intention or plan. future focused. Progress Toward Goals/Plan:: Progress noted with pt following through with [facility] [place] discussion with dad about desire for a better relationship. Shows progress with allowing self to be vulnerable and being able to manage emotions without engaging in self-destructive behavior. Plan is for pt to continue IOP to increase consistent use of healthy coping, maintain gains and prevent decompensation. Time Stopped:: 09:45
--- NOTE | 2020-12-09 09:05 | BH.SGPN.GN ---
Behaviors/Verbalizations/Mental Status: [] Eye contact is good. Motor activity is appropriate. Appearance is casual. Speech is Appropriate. Mood is anxious. Affect is congruent. Thoughts are linear and logical. No evidence of psychosis. Reviewed daily check in sheet and no reports of suicidal ideations or intent. Client Response/Progress/Benefit: [] Pt participated at times during group discussion. Attentive. Provided appropriate feedback. Daily symptom tracker notes 4/5 for depression and 3/5 for anxiety and anger. Mental health win was being assertive with her employer. Set boundary that she is not able to work overnights as the sleep disruptions impacts her mood stability. This was challenging as she believes that she is a people pleaser and did not want to upset her [employer] supervisor. Progress noted. Emotion for today is mindfully angry. Benefited from group support, encouragment, and praise. Will continue Narrative Note: []
--- NOTE | 2020-12-09 10:05 | BH.SGPN.GN ---
Behaviors/Verbalizations/Mental Status: []Client alert and oriented, casually dressed and groomed. Eye contact good. Motor activity appropriate. Speech within normal limits. Affect constricted, mood agitated. Thoughts linear, logical, no signs of hallucinations or delusions. Client Response/Progress/Benefit: []Pt was an active participant in group discussion and completed group worksheet. Attentive. Provided appropriate feedback. Group worked together to define anger and discussed the ways anger can impact one internally and externally. Pt admits ?I have problems with anger? and recognizes that her anger is often masking fear at her job. Pt identified feeling vulnerable, tired, scared, trauma-triggered, and overwhelmed as being internal events or feelings that can lead to anger. Pt also identified external ways that pt commonly expresses anger which included: screaming at people, shutting down, throwing things, and cussing. Benefited from group by increasing understanding of the impact of anger on mental health. Will continue in IOP to improve emotional regulation skills, reduce self-sabotaging behaviors, and improve daily functioning. Narrative Note: []
--- NOTE | 2020-12-09 10:10 | BH.SGPN.GN ---
Behaviors/Verbalizations/Mental Status: []Client alert and oriented, casually dressed and groomed. Eye contact good. Motor activity appropriate. Speech within normal limits. Affect congruent, mood dysthymic. Thoughts linear, logical, no signs of hallucinations or delusions. Client Response/Progress/Benefit: []Pt was engaged throughout AEB contributing to group discussion and self-reflection. Reported connecting with fellow participants reflections on potential benefits of well managed anger. Shared that anger can be motivating. Pt contributed as group brainstormed healthy coping skills for better managing anger which included: music, walking/exercise, changing the environment, communicating with supports, and journaling. Pt appeared to benefit from identifying different techniques to manage anger as well as gaining awareness of potential consequences of unmanaged anger. Pt selected ?delay, distract, decide? as the coping skill pt would like to try to regulate anger. Progress noted in self-report of improved self-care, though pt continues to struggle with negative self-talk and emotion regulation. Will continue IOP tx to promote the use of healthy coping skills and further improve boundary setting skills. Narrative Note: []
--- NOTE | 2020-12-13 09:00 | BH.SGPN.GN ---
Behaviors/Verbalizations/Mental Status: []Client alert and oriented, neatly dressed and groomed. Eye contact good. Motor activity restless. Speech within normal limits. Affect constricted, mood dysthymic. Thoughts linear, logical, no signs of hallucinations or delusions. Reviewed client?s symptom tracker, client scored herself within her baseline. No risk for suicidal ideation, plan, or intent as of 12/13/20 Client Response/Progress/Benefit: []Client responded well to session, positive and receptive to feedback. Client reports feeling stressed this morning, but shared many positives. Client's biggest win this week was that she had suicidal ideation over the weekend and used several healthy coping skills to overcome those thoughts. Client shared she reached out to support, has been reading, and set a boundary at work so she will not be working nights anymore. Client reports she is proud of herself for coping well with her symptoms. Appeared to benefit from reflecting on her application of coping skills. Continues to struggle with seeing prolonged periods of mood stability and therefore can continue to benefit from IOP tx. Narrative Note: []
--- NOTE | 2020-12-13 10:10 | BH.SGPN.GN ---
Behaviors/Verbalizations/Mental Status: [] Eye contact is good. Motor activity is appropriate. Appearance is disheveled. Speech is Appropriate. Mood is euthymic. Affect is full. Thoughts are linear and logical. No evidence of psychosis. Client Response/Progress/Benefit: [] Pt was an active participant in group discussion and activity. Pt and peers worked together and provided insight on the benefits to goal-setting as well as the barriers to setting and obtaining goals. Attentive during psychoeducation on SMART (Specific, Measurable, Achievable, Realistic, Timely)goals. Did well in activity with peers and was able to relate the activity to goal setting for herself. Benefited from increase insight into effective ways to set goals. Will continue in IOP to maintain safety, increase health coping, and improve functioning. Narrative Note: []
--- NOTE | 2020-12-13 11:08 | BH.SGPN.GN ---
Behaviors/Verbalizations/Mental Status: []Eye contact is fair to good. Alert and oriented. Motor activity is appropriate. Appearance is casual. grooming is appropriate. Speech is Appropriate, limited input provided. Mood is anxious and dysthymic. Affect congruent. Thoughts are linear and logical. No evidence of psychosis or hallucinations. Client Response/Progress/Benefit: []Client was engaged during discussion, did well to complete activity and process with the group. Providing increased input, asking questions, and more positive during group which is progress for client. Client was willing to complete the SMART goal worksheet. Identified her personal SMART goal as: ?I will go to the gym 2-3 times during the next week?. Client stated this will benefit her mental health by increasing time spent on self-care, improving mood and self-esteem, as well as increasing time spent with healthy supports. Client identified her barriers which included: struggling to get up in time, other responsibilities taking priority, and not making time to do it. Client did well to brainstorm potential solutions for these barriers and is willing to begin working on this goal as homework. Benefited from this group by developing a short-term SMART goal related to mental health. Will continue IOP tx to increase healthy coping skills, continue to challenge distorted thoughts and work on healthy boundary setting, and prevent decompensation. Narrative Note: []
--- NOTE | 2020-12-14 09:00 | BH.SGPN.GN ---
Behaviors/Verbalizations/Mental Status: []Eye contact is good. Alert and oriented. Motor activity is appropriate. Appearance is casual. grooming is appropriate. Speech is Appropriate. Mood is euthymic. Affect is congruent. Thoughts are linear and logical. No evidence of psychosis or hallucinations. Reports SI as 2/5 which is below client baseline. Denies plan, or intent as of this date. Client Response/Progress/Benefit: []Pt engaged in session AEB listening to others and willingness to share thoughts and feelings with group. Pt noted feeling ?happy? on this date and described this as a major positive as she often struggles with negative perspective. 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 Client shared usually she would escalate to point of crisis and is proud of herself for using skills to prevent from doing so. Shared current stressor as an issue she needs to reach out to her medical insurance to address. Appeared to benefit from supportive group environment. Recommended ongoing IOP tx to improve coping skills and mood management, and prevent decompensation. Narrative Note: []
--- NOTE | 2020-12-14 10:08 | BH.SGPN.GN ---
Behaviors/Verbalizations/Mental Status: []Client alert and oriented, neatly dressed and groomed. Eye contact good. Motor activity restless. Speech within normal limits. Affect constricted, mood euthymic. Thoughts linear, logical, no signs of hallucinations or delusions. Client Response/Progress/Benefit: []Client engaged throughout session AEB providing input when prompted. Appeared to connect with discussion on crisis and how unhealthy coping could result in a personal crisis. Group reflected on the importance of having awareness of personal warning signs in order to prevent reaching crisis point. Group identified potential warning signs for crisis and client completed the personal warning signs worksheet. Client identified personal crisis warning signs to include: alcohol use, increased self-sabotage such as not taking her medications, and isolation. Client reports that she has gotten better at making healthier choices which can prevent vicious cycles of crisis. Client benefited from increasing awareness of what leads to crisis and personal warning signs. Client will continue IOP tx to reinforce healthy coping skills, improve distress tolerance skills, and improve mood stability. Narrative Note: []
--- NOTE | 2020-12-14 12:59 | BH.TPR ---
Treatment Plan Review Date of Admission:: 11/15/20 Date of Treatment Plan Review:: 12/14/20 Admitting Diagnoses:: F31.63 Bipolar disorder, most recent episode mixed, severe without psychosis; panic disorder; alcohol use disorder; cluster b traits Current Diagnoses:: F31.63 Bipolar disorder, most recent episode mixed, severe without psychosis; panic disorder; alcohol use disorder; cluster b traits Patient's Response to Treatment:: Pt consistently attends sessions. Pt showing increased contributions to group and individual sessions. Pt following through with homework from individual and group sessions. Starting to provide feedback to peers. Status of Current Problems and Symptoms: Ongoing problems with decrease in intensity and severity. Per DSM 5 pt has reduced overall symptoms by 28%. Problem #1 Problem Name:: Mood instability Status of Goals:: Obj 1 - Pt able to identify healthy coping skills like boundary setting, reading, positive affirmations, and healthy distractions. IN the last two weeks patient has been showing improvement with applying skills outside treatment environment. Obj 2 - Continued work ongoing. Per DSM 5 pt shows a 50% reduction in depression and 43% reduction in anxiety. Team Recommendations:: Continued work encouranged. Focus on continuing to set boundaries, applying skills consistnetly and medication compliance. Problem #2 Problem Name:: Anxiety Status of Goals:: Obj 1 - Pt is able to identify at least 3 healthy calming skills like breathing, grounding and guided imagery. Pt struggles with consistent application of skills. Obj 2 - Per DSM 5 pt showing slight progress with 22% reduction in anxiety. Team Recommendations:: Continued work encouranged. Focus on continuing to set boundaries, applying skills consistently and medication compliance.
--- NOTE | 2020-12-14 15:04 | BH.MDN ---
Multi-Disciplinary Note - Note 60-min Individual Time Started:: 11:00 Date: 12/14/20 Purpose of session/treatment goals addressed:: Purpose of session was to address goal 1. Eye Contact:: Fair Motor Activity:: Appropriate Appearance:: Casual Speech:: Appropriate Mood:: Euthymic Affect:: Congruent Thoughts:: Linear, Logical, No evidence of hallucinations/delusions noted Staff Interventions:: Therapist used open ended questions to elicit pt's current symptoms and stressors. Therapist processed recent suicidal thoughts, elicited what helped pt overcome thoughts. Reviewed homework from last session. Elicited treatment progress since starting IOP. Discussed tentative discharge plans. Client Response:: Pt reported she had a rough Saturday because she was triggered when her dad didn't ask her how her doctor appointment went. Pt stated she started having negative thoughts that her dad doesn't care about her. Pt reported having suicidal thoughts with intent. Pt stated she was able to work through her suicidal thoughts by taking her niece on a tractor ride and reached out to two support people. Pt reported by the end of the night she was feeling better and no longer having suicidal thoughts. Pt stated feeling proud of herself for being able to overcome suicidal thoughts. Reviewed how distorted thought patterns resulted in suicidal thoughts. Pt completed homework from last session of only taking on 4 shifts at the [employer] that are only in the daytime. Pt stated she is pleased with herself for sticking to the boundaries with her work schedule. Pt identified treatment progress as being able to manage suicidal thoughts, setting boundaries, challenging negative thoughts, increased use of positive affirmations, and only taking on four shifts at the [employer]. Risks/Concerns:: Pt does report chronic suicidal thoughts. denies current suicidal intent or plan. Progress Toward Goals/Plan:: Progress noted with pt reporting being able to manage suicidal thoughts, challenging negative thoughts, increased use of healthy coping and reporting improved mood stability. Pt to continue IOP to maintain gains, continue use of healthy coping and prevent decompensation. Plan is to discharge in 2 weeks. Time Stopped:: 11:55
--- NOTE | 2020-12-15 09:00 | BH.SGPN.GN ---
Behaviors/Verbalizations/Mental Status: [] Eye contact is good. Motor activity is appropriate. Appearance is casual. Speech is Appropriate. Mood is depressed. Affect is flat. Thoughts are linear and logical. No evidence of psychosis. Reviewed daily check in sheet and pt reports 2/5 for suicidal thoughts and 0/5 for intent. This is baseline per history. Client Response/Progress/Benefit: [] Pt participated when prompted. Emotion for today is unstable. Mental health win was going to the grocery store and completing her shopping. Reports that she is extremely anxious and panicky at the grocery store. In the past she would drive to the store, sit in the parking lot, and never go in. Reports that despite significant anxious she completed her shopping. Because this did not go smoothly she was minimizing her accomplishment. Progress noted. Benefited from group support, encouragement, and feedback. Will continue in IOP to maintain safety, improve functioning, and prevent decompensation. Narrative Note: []
--- NOTE | 2020-12-15 10:10 | BH.SGPN.GN ---
Behaviors/Verbalizations/Mental Status: []Eye contact is poor. Alert and oriented. Motor activity is appropriate. Appearance is casual. grooming is appropriate. Speech is Appropriate. Mood is dysthymic. Affect is flat. Thoughts are linear and logical. No evidence of psychosis or hallucinations. Client Response/Progress/Benefit: []Client appeared disengaged during session as client did not contribute or take notes during session. Client appeared anxious AEB leg bouncing consistently and tapping her pen. The group identified barriers to managing emotions such as unable to identify the emotion, negative self-talk, catastrophizing, jumping to conclusions, personalizing, and reading other?s body language. During group activity, client did not participate and observed peers. Client benefited from session to gain understanding on the importance of managing emotions to improve daily functioning. Client will continue IOP to promote the use of healthy coping skills, challenge negative thoughts, and prevent decompensation. Narrative Note: []
--- NOTE | 2020-12-16 09:00 | BH.SGPN.GN ---
Behaviors/Verbalizations/Mental Status: []Client alert and oriented, casually dressed. Eye contact fair. Motor activity appropriate. Speech within normal limits. Affect constricted, mood anxious and dysthymic. Thoughts linear, logical, no signs of hallucinations or delusions. Reviewed client?s symptom tracker, client reported herself within her baseline for suicide ideation, plan, or intent. Client Response/Progress/Benefit: []Client responded well to session, engaged throughout and participated in group discussion. Client reported feeling ?scared? this morning due to fear of losing control due to manic symptoms. Client?s current manic symptoms include increased energy, lack of sleep, and reckless driving. Progress noted as client stated she tried to mindful when driving manic like focusing on breathing, speed limits, etc. Client reported working towards her goal of working out at least two times a week. Client shared her positive as coming to IOP when decreased motivation. Will continue IOP to promote the use of healthy coping skills, improve daily functioning, and challenge negative thoughts. Narrative Note: []
--- NOTE | 2020-12-16 10:05 | BH.SGPN.GN ---
Behaviors/Verbalizations/Mental Status: []Client alert and oriented, casually dressed and appropriately groomed. Eye contact fair. Motor activity appropriate. Speech within normal limits. Affect constricted, mood agitated and dysthymic, Thoughts linear, logical, no signs of hallucinations or delusions. Client Response/Progress/Benefit: []Client receptive of session, remained a passive participant and providing limited input throughout. Client nodding as group discussed quote and the ways communication can be an illusion. Group identified potential barriers to healthy communication as: anxiety, fear of other?s reactions, making assumptions, shutting down, and fear of being vulnerable. Noted a personal communication barrier as shutting down and not communicating when frustrated. Client remained attentive and taking notes during psychoeducation on the four communication styles, providing input and examples throughout. Benefited from increased insight regarding own communication style and impacts this has on overall mental health. Engagement continues to be variable as client emotions are often impacted by external forces which at times contribute to being distracted by own thoughts. Client will continue IOP to promote the use of healthy coping skills, improve boundaries and mood management, and prevent decompensation. Narrative Note: []
--- NOTE | 2020-12-16 11:10 | BH.SGPN.GN ---
Behaviors/Verbalizations/Mental Status: []Client alert and oriented, casually dressed and groomed. Eye contact fair. Motor activity appropriate. Speech within normal limits. Affect constricted, mood dysthymic. Thoughts linear, logical, no signs of hallucinations or delusions. Client Response/Progress/Benefit: []Client engaged participant AEB her attentiveness during discussion and listened to peers. Client reported she is mostly a passive communicator. Client reported this communication style causes negative consequences on her relationships and mental health. Client stated she holds her thoughts and feelings in which results in her getting angry. Attentive during psychoeducation about DEAR MAN (Describe, Express, Assert, Reinforce, Mindfulness, Appear confident, Negotiate) interpersonal communication skill. Client identified her communication goal is to focus on the skill of assert by expressing to others what she needs. Client seemed to benefit from increased insight into how her communication style impacts her mental health and relationships. Client progressing as shown by improved mood stability and reporting increased use of healthy coping skills. Will continue IOP tx to maintain gains, continue setting healthy boundaries and prevent decompensation.
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
--- NOTE | 2020-12-19 10:05 | BH.SGPN.GN ---
Behaviors/Verbalizations/Mental Status: []Client alert and oriented, casually dressed and groomed. Eye contact fair to good. Motor activity appropriate. Speech within normal limits. Affect congruent, mood dysthymic. Thoughts linear, logical, no signs of hallucinations or delusions. Client Response/Progress/Benefit: []Client was a mostly engaged participant AEB taking notes and contributing some to discussion, though continues to take a mostly passive role. Connected with group topic of perspective and the impacts of one?s perspective on mental health. Client noted that her perspective has impacted relationships and resulted in worsening mental health sx due to telling herself things can?t improve. Shared working to better challenge these thoughts as they occur. Client worked with the group to identify what factors influence our perspective which included: upbringing, stress, environment, society, our mental health, supports, and past experiences. Noted that negative core beliefs have impacted her perspective in some situations. Receptive of psychoeducation provided on the mental health impacts of one?s perspective and ways we develop our perspective. Continues to struggle with combating distortions, negative self-talk, distress tolerance and emotion regulation, and healthy coping on a consistent basis. Client will continue IOP tx to promote gains, continue to improve self-care and healthy coping, and prevent decompensation. Narrative Note: []
--- NOTE | 2020-12-19 11:10 | BH.SGPN.GN ---
Behaviors/Verbalizations/Mental Status: []Client alert and oriented, casually dressed and groomed. Eye contact fair to good. Motor activity appropriate. Speech within normal limits. Affect congruent, mood euthymic. Thoughts linear, logical, no signs of hallucinations or delusions. More talkative compared to previous group sessions. Client Response/Progress/Benefit: []Pt responded well to session AEB pt providing input to session, completing worksheet, and listening attentively to peers. Pt connected with peers that a barrier to identifying strengths is the messages received as a child make it hard to accept positives now. Pt reported her personal strength of self-control has helped improve relationships because she stops herself from being reactive when feeling agitated. 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 Pt able to identify three positive affirmations can say daily. Pt to continue IOP to stabilize moods, increase consistent use of healthy coping and prevent decompensation. Narrative Note: []
--- NOTE | 2020-12-21 09:05 | BH.SGPN.GN ---
Behaviors/Verbalizations/Mental Status: [] Eye contact is good. Motor activity is appropriate. Appearance is casual. Speech is Appropriate. Mood is euthymic. Affect is full. Thoughts are linear and logical. No evidence of psychosis. Reviewed daily check in sheet and pt reports 1/5 for suicidal thoughts and 0/5 for intent. This is below baseline. Client Response/Progress/Benefit: [] Pt was an active participant in group discussion. Emotion for today is optimistic. Mental health win included utilizing skills. Reports that while working yesterday she got inside her head with negative thoughts. Was ruminating on the past . States that she tried mindfulness skills which was helpful as she did not have much in the way of distractions. Also reports setting up boundaries with others. Progress noted per pt report. Benefited from group support, feeback, and encouragement. Will continue in IOP to maintain safety and prevent decompensation. Narrative Note: []
--- NOTE | 2020-12-21 10:00 | BH.SGPN.GN ---
Behaviors/Verbalizations/Mental Status: [] Eye contact is good. Motor activity is appropriate. Appearance is casual. Speech is Appropriate. Mood is euthymic. Affect is full. Thoughts are linear and logical. No evidence of psychosis Client Response/Progress/Benefit: [] Pt was an active participant in group discussion and activity. Attentive during psychoeducation. Along with peers was able to identify barriers to taking action on her mental health which included; fear of failure, the unknown, change, one's environment, past negative experiences, being passive, and fear of vulnerability. Identified several symptoms and stressors that she feels are holding her back from progress such as negative self-talk, anxiety, people pleasing, and past trauma. Benefited from increased self-awareness of obstacles. Will continue in IOP to maintain safety, increase healthy coping, and prevent decompensation. Narrative Note: []
--- NOTE | 2020-12-21 11:07 | BH.SGPN.GN ---
Behaviors/Verbalizations/Mental Status: []Client alert and oriented, neatly dressed and groomed. Eye contact good. Motor activity appropriate. Speech within normal limits. Affect congruent, mood euthymic and agitated. Thoughts linear, logical, no signs of hallucinations or delusions. Client Response/Progress/Benefit: []Client responded well to session, taking notes and participating in worksheet discussion. Client connected with the zones of action/change and reported that making sustainable change comes from stepping out of one?s comfort zone into the learning zone. Client set a goal to gain control over her emotional responses to past trauma. Client wants to be able to regulate her emotions when she experiences a trigger and plans to do this by following through with EMDR therapy once a week. Client believes she will need support from friends and her therapist to accomplish this goal. Appeared to benefit from identifying a small goal to benefit mental health. Will continue IOP tx to promote gains, further increase emotional regulation, and improve daily functioning. Narrative Note: []
--- NOTE | 2020-12-23 10:00 | BH.SGPN.GN ---
Behaviors/Verbalizations/Mental Status: [] Eye contact is good. Motor activity is appropriate. Appearance is disheveled. Speech is Appropriate. Mood is depressed. Affect is flat. Thoughts are linear and logical. No evidence of psychosis Client Response/Progress/Benefit: [] Pt participated at times during group discussion. Active during group activity. Attentive during psychoeducation on fear and the impact that fear of failure can have. Pt and peers provided insight on thoughts that contribute to fear of failure such as; I'm not good enough, I won't succeed, I know I can't/couldn't do it, Why try ... I will fail, and I could have done that better. Pt and peers were able to identify the benefits to failure in an attempt to reframe. Group identified that failure can be a way to; learn what to do differently, increase resiliency, increase self-compassion, and problem-solve. Pt benefited from psychoeducation on the impact of fear of failure and changing perspective on how to view setbacks. Pt will continue in IOP to maintain safety and prevent decompensation. Narrative Note: []
--- NOTE | 2020-12-23 10:48 | BH.MDN_ITS ---
Multi-Disciplinary Note - Note 45-min Individual Time Started:: 09:20 Date: 12/23/20 Purpose of session/treatment goals addressed:: Purpose of session was to prepare pt for discharge from IOP next week. Eye Contact:: Good Motor Activity:: Restless Appearance:: Casual Speech:: Appropriate Mood:: Anxious Affect:: Congruent Thoughts:: Linear, Logical, No evidence of hallucinations/delusions noted Staff Interventions:: Therapist used open ended questions to elicit pt's current symptoms and stressors. Reviewed homework from last session. 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 Provided homework for pt to complete worksheets about triggers and relationships. Discussed discharge plan for next week. Client Response:: Pt reported she reflected on her homework of identifying what would be helpful to complete to help her feel more ready for discharge. Pt stated she believes it would be most helpful if she has a tentative plan or schedule for each day. Pt reported she also will be seeing her individual therapist twice weekly. Discussed pt joining aftercare program at [facility]. 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 Pt agreeable to complete homework provided. Risks/Concerns:: Denies current suicidal ideation, plan or intention to date. future focused. Progress Toward Goals/Plan:: Progress noted per pt's report of decreased suicidal ideation, improved ability to identify positives, continuing to use healthy coping skills, and decrese in self-sabotage behaviors. Plan is for pt to discharge from IOP next week. To continue IOP to maintain gains and prevent decompensation. Time Stopped:: 10:10
--- NOTE | 2020-12-23 11:08 | BH.SGPN.GN ---
Behaviors/Verbalizations/Mental Status: []Client alert and oriented, casually dressed and groomed. Eye contact good. Motor activity WNL. Speech within normal limits. Affect congruent, mood euthymic. Thoughts linear, logical, no signs of hallucinations or delusions. Client Response/Progress/Benefit: []Client responded well to session, engaged and actively participating throughout. Client completed the fear of failure worksheet and reported that fear of failure has kept client from being able to perform at the best of her ability. Client able to identify barriers that reinforce personal fear of failure which included: distorted thoughts, past experiences, negative self-talk, unrealistic expectations, and worry about what others will think. Client attentive during discussion of the different strategies to help overcome fear of failure. Identified personal strategies to include: challenging herself to lower expectations, using positive affirmations, keeping track of wins, asking for help, and setting small daily goals. Client appeared to benefit from learning ways to overcome fear of failure. Will continue IOP tx to continue to promote application of healthy coping skills, continue to improve ability to manage emotions, improve healthy boundary setting, and maintain stability. Narrative Note: []
== END 2020-12-23 23:59 ==
LOC: BHIOP 09:00
PROVIDERS: Referring Provider Psychiatry & Neurology Psychiatry; Visit Provider Psychiatry & Neurology Psychiatry
DX: F31.63 Bipolar disorder, current episode mixed, severe, without psychotic features (principal); F41.0 Panic disorder [episodic paroxysmal anxiety]; Z72.89 Other problems related to lifestyle
CPT/HCPCS: H0035; 90832; 90834; 90837; 90853

== ENCOUNTER 2020-12-27 09:00 | Outpatient (RCR) | payer BC, SELFPAY ==
[2020-12-24 00:50] VITALS: BP 130/66; PULSE 75
--- NOTE | 2020-12-27 09:05 | BH.SGPN.GN ---
Behaviors/Verbalizations/Mental Status: []Client alert and oriented, neatly dressed and groomed. Eye contact good. Motor activity appropriate. Speech within normal limits. Affect constricted, mood anxious. Thoughts linear, logical, no signs of hallucinations or delusions. Reviewed client?s symptom tracker and scores were significantly below client's baseline. no risk for suicidal ideation, plan, or intent as of 12/27/20 Client Response/Progress/Benefit: []Client responded well to session, attentive and receptive to feedback. Client reports feeling overwhelmed this morning. Client shared her weekend sucked due to car issues and responding to a work call that triggered PTSD. Client did cope well over the weekend as she cooked, used healthy distractions, did a word search, read, and completed her homework from [facility]. Client stated she is more aware of her self-sabotaging behaviors now, but client still has urges at times to engage in unhealthy behaviors. Appeared to benefit from reflecting on gains and acknowledging self-sabotaging behaviors. Will continue IOP tx to promote mood stability, prevent self-sabotaging behaviors, and improve emotional regulation skills. Narrative Note: []
--- NOTE | 2020-12-27 10:09 | BH.SGPN.GN ---
Behaviors/Verbalizations/Mental Status: []Client alert and oriented, casually dressed and groomed. Eye contact good. Motor activity appropriate. Speech within normal limits. Affect full, mood euthymic. Thoughts linear, logical, no signs of hallucinations or delusions. Client Response/Progress/Benefit: []Client was an active participant AEB contributing to discussion, taking notes, and engaging in group activity. Connected with the topic of pitfalls and contributed to group discussion on barriers that prevent from choosing a healthier path to mental wellness. Noted making progress in addressing personal pitfalls since beginning IOP tx. Group worked together to identify examples of personal pitfalls which included; resentment/anger, stigma, shutting down, low motivation, making excuses, denial, distortions, and unhealthy coping. Client identified unrealistic expectations and negative self-talk as personal pitfalls that have inhibited progress in the past. Engaged during the activity by supporting thers in advocating for there needs, brainstorming with group, and providing supportive feedback throughout. Client benefited from group as she learned to better identify potential barriers to improving mental health symptoms. Client will continue IOP tx to promote application of healthy coping skills and communication, prevent decompensation, and maintain mood stability. Narrative Note: []
--- NOTE | 2020-12-27 11:10 | BH.SGPN.GN ---
Behaviors/Verbalizations/Mental Status: []Client alert and oriented, casually dressed and groomed. Eye contact good. Motor activity appropriate. Speech within normal limits. Affect full, mood euthymic. Thoughts linear, logical, no signs of hallucinations or delusions. Client Response/Progress/Benefit: []Client receptive of session, engaged throughout AEB client listening and contributing to discussion, as well as taking notes. Client completed a worksheet where client identified personal pitfalls impacting mental health progress. Client shared she is currently struggling with negative thoughts, poor boundaries, and inconsistent self-care. Attentive and contributing during group brainstorm of strategies to overcome pitfalls. Client will work on overcoming her pitfall of poor boundaries by using more assertive communication and setting small goals. Benefited from identifying personal pitfalls and strategies to overcome these pitfalls. Will continue IOP tx to maintain gains, promote healthy change behaviors, and prevent decompensation. Narrative Note: []
--- NOTE | 2020-12-29 10:00 | BH.SGPN.GN ---
Behaviors/Verbalizations/Mental Status: [] Eye contact is good. Motor activity is appropriate. Appearance is casual. Speech is Appropriate. Mood is euthymic. Affect is full. Thoughts are linear and logical. No evidence of psychosis. Client Response/Progress/Benefit: [] Pt was an active participant in group discussion. Attentive during psychoeducation on different types of anxiety disorders. Along with peers provided insight on the definition of anxiety as well as the impact of anxiety which include; poor sleep, not completing tasks, poor concentration, impacts relationships, impacts work, and decreases appetite. Pt identified her physical symptoms of anxiety which are increased heart rate, fidgety, and agitation . Worked with peers to identify safety behaviors which included avoidance, self-harm, distraction, lashing out, and substance use. Benefited from increased insight and awareness from group discussions. Today is pt's last day in [facility]. Narrative Note: []
--- NOTE | 2020-12-29 11:15 | BH.SGPN.GN ---
Behaviors/Verbalizations/Mental Status: []Client alert and oriented, casually dressed and groomed. Eye contact fair. Motor activity appropriate. Speech within normal limits. Affect congruent, mood euthymic. Thoughts linear, logical, no signs of hallucinations or delusions. Client Response/Progress/Benefit: []Client was an active participant AEB pt providing input and listening attentively to peers. Reviewed anxious thoughts and safety behaviors client engages in that reinforce anxiety. Identified personal safety behaviors to include: isolation, sleep, distraction, and not picking up phone call. Attentive during psychoeducation on mindfulness coping skills and their impact on mental health wellness. Group was able to identify self-soothing and mind-based coping skills which included: 5-senses, meditation, deep breathing, journaling, and body scan. Client would like to work on calming skill of hot yoga. Appeared to benefit from increasing repertoire of anxiety reduction skills. Client has made significant treatment progress since starting IOP and will discharge today. Narrative Note: []
--- NOTE | 2020-12-29 16:20 | BH.MDN ---
Multi-Disciplinary Note - Note 45-min Individual Time Started:: 09:20 Date: 12/29/20 Purpose of session/treatment goals addressed:: Purpose of session was to identify treatment progress, identify strategies to maintain progress and solidfy aftercare plan. Eye Contact:: Good Motor Activity:: Appropriate Appearance:: Casual Speech:: Appropriate Mood:: Euthymic, Anxious Affect:: Congruent Thoughts:: Linear, Logical, No evidence of hallucinations/delusions noted Staff Interventions:: Therapist used open ended questions to elicit pt's current symptoms and stressors. Used CBT techniques to help pt challenge distorted thoughts. Helped pt problem solve current stressor. Elicited pt's thoughts about treatment progress. Collaborated with pt to identify strategies to maintain progress. Worked with pt to solidify aftercare plan. 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 Therapist helped pt recognize this is a distorted thought pattern, helping her challenge the thought. Pt responded well to therapist helping her with problem solving stressor. Agreed with plan to write down all her questions about social security and disability then call a help line from each service to get facts before jumping to conclusions. Pt reported having a tough week with anniversaries of traumatic events and having a bad call over the weekend. Pt noted progress with not engaging in unhealthy coping skills to deal with the stressors. Pt reported she can note significant progress since starting IOP. Progress noted includes: engaging in self-care consistently, setting boundaries, being more assertive, suicidal thoughts decrease in frequency and intensity, no self-harm for a couple weeks, sober for 5 weeks, improved mood stability, decreased anxiety, and decreased depression. Pt identified strateiges to help her maintain progress to include: creating daily routine/structure, going to therapy, medication compliance, continuing to set boundaries, cooking a meal, challenging distorted thoughts, and learning more about borderline personality disorder. Risks/Concerns:: Pt currently denies suicidal ideation, plan or intention to date. future focused. Progress Toward Goals/Plan:: Progress noted with pt reporting signficiant decrease in anxious and depressive symptoms. Pt has shown treatment progress with mood stability, more consistent use of healthy coping skills, decrease in suicidality, and ability to set boundaries. Plan is for pt to discharge from [facility] today. Pt will continue counseling with outpatient therapist Humaira Tobias, continue psychiatry with Dr. De León and start [facility] Aftercare Program next . Time Stopped:: 10:00
--- NOTE | 2020-12-29 17:01 | BH.DS_ITS ---
Discharge Summary - Demographics Date of Admission:: 12/29/20 Discharge Date: 12/29/20 Presenting Problems at Admission:: Pt self-referred to [facility] program due to mood irritability, worsening depression with passive thoughts of . Pt has hx of bipolar disorder, panic disorder, and alcohol use disorder. Pt participated in [facility] from February 2020 to May 2020. At admission pt was having to work part-time at [employer] due to losing other job has impacted her moods because of 24 hour shifts. Pt stated not being able to take her medications properly due to night shifts. Pt endorsed increased irritability, decreased sleep, increased energy, reckless driving, and impulsive sex with several men. Pt endorsed depressed mood with feelings of worthlessness, hopelessness, anger, anhedonia, decreased concentration and no motivation. Mental health symptoms were impacting social, familial and occupational functioning. Discharge Diagnoses:: Bipolar disorder, most recent episode mixed, severe without psychosis (F 31.63); panic disorder; alcohol use disorder; strong cluster b traits Reason for Discharge:: Pt has made significant treatment progress since starting [facility] and no longer meets medical necessity for [facility] level of care. - Treatment Progress During Treatment & Response: Per pt's DSM 5 cross-cutting measure at discharge pt has 67% reduction in anxiety, 67% reduction in depression and overall 66% reduction in all symptoms. Additional progress noted includes: engaging in self-care consistently, setting boundaries, being more assertive, suicidal thoughts decrease in frequency and intensity, no self-harm for a couple weeks, sober for 5 weeks, improved mood stability, and only agreeing to 12 hour day shifts at the [facility] to help with mood stability. Pt consistently attended sessions, showed increased contributions to group sessions, and completed assigned homework. Issues Still to be Addressed:: Pt could benefit from continued work on understanding borderline personality disorder, continued reinforcement of healthy coipng, maintaining a daily routine/structure, and continued work on past trauma. Discharge Recommendations/Instructions:: 1. Counseling with Humaira Tobias at [facility]. 2. Medication Management with Dr. De León at [place] [id number]. 3. [facility] Aftercare Group on from 2-3:30pm Discharge Handout: Complete Discharge Handout with client on aftercare options and continuity of care.
== END 2020-12-29 02:00 | disposition home or self-care (01) ==
LOC: BHIOP 09:00
PROVIDERS: Referring Provider Psychiatry & Neurology Psychiatry; Visit Provider Psychiatry & Neurology Psychiatry
DX: F31.63 Bipolar disorder, current episode mixed, severe, without psychotic features (principal); F41.0 Panic disorder [episodic paroxysmal anxiety]; Z72.89 Other problems related to lifestyle
CPT/HCPCS: H0035; 90834; 90853

== ENCOUNTER 2021-01-05 14:00 | Outpatient (RCR) | payer BC, SELFPAY ==
--- NOTE | 2021-01-05 14:00 | BH.SGPN.GN ---
Behaviors/Verbalizations/Mental Status: []Client alert and oriented, casually dressed and groomed. Eye contact good. Motor activity appropriate. Speech within normal limits. Affect constricted, mood overwhelmed. Thoughts linear and logical. No signs of hallucinations or delusions. Client Response/Progress/Benefit: []Client responded well to session, checked reporting ?I struggled? this week. Client shared she has not been practicing self-care which triggers depressive thoughts. Identified healthy coping skills she has been using such as reaching out to a friend and opposite action. Client was encouraged by the group to set healthy boundaries to promote self-care. Client engaged well during discussion of social support and noted benefits of different types of social support. Client appeared to benefit from psychoeducation on the four types of social support. Client was engaged as client contributed to how one may build social support. 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 Will continue aftercare IOP to promote gains and continue the use of healthy coping skills. Will continue to monitor mood and signs of any decompensation. Narrative Note: []
--- NOTE | 2021-01-05 16:50 | BH.MTP ---
[facility] - Patient Information Program Physician:: Dr. Monsivais Primary Therapist:: Wendy Quintanilla - Psychiatric Diagnoses Psychiatric Diagnoses:: Bipolar disorder, most recent episode mixed, severe without psychosis (F 31.63); panic disorder; alcohol use disorder; strong cluster b traits Diagnosis Code(s):: F31.63 - Estimated LOS Estimated LOS (in weeks):: 10 Problem/Goal #1 - Problem/Goal #1 Stated Goal:: client will maintain or see a reduction in symptoms AEB client score on the DSM 5 cross-cutting measure and improve client's daily functioning. - Objectives Objective #1 Stated Objective: Client will continue to consistently apply healthy coping skills to maintain progress made in IOP tx. Interventions: Through group therapy, client will review warning signs and triggers as well as healthy coping skills learned in IOP tx to successfully maintain gains while transitioning into outpatient therapy Discharge Criteria: Client will have accomplished this goal when client's score on the DSM-5 cross-cutting measure has either maintained or reduced over a 10 week period. Target Date: 03/16/21 Review Date: 02/02/21 Objective #2 Stated Objective: Client will learn and utilize 2-3 maintenance strategies to prevent decompensation. Interventions: Through group therapy, client will be provided with education on healthy maintenance behaviors, relapse prevention techniques, and healthy coping strategies. Discharge Criteria: Client will have accomplished this goal when can report using at least 2 maintenance skills to prevent decompensation. Target Date: 03/16/21 Review Date: 02/02/21
--- NOTE | 2021-01-12 14:00 | BH.SGPN.GN ---
Behaviors/Verbalizations/Mental Status: []Client alert and oriented, casual dress, hygiene tended to. Eye contact fair. Motor activity appropriate. Speech within normal limits. Affect constricted, mood anxious. Thoughts linear, logical, no signs of hallucinations or delusions. 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 Pt stated she isn't giving herself time to take care of her which she recognizes isn't helping her mental health. Pt identified mental health positive as taking medications consistently. Pt engaged in brainstorming of various daily routine ideas. Pt completed task of identifying important task to complete on a daily or weekly basis for her routine. Patient identified routine items to include: read, word search, 1-2 tasks complete in the house, get outside and go to the gym. Pt seemed to benefit from support from peers and learning about benefits of routine. Pt to continue aftercare group to continue use of healthy coping, challenge distorted thoughts and prevent decompensation. Narrative Note: []
--- NOTE | 2021-01-19 14:00 | BH.SGPN.GN ---
Behaviors/Verbalizations/Mental Status: []Client alert and oriented, neatly dressed and groomed. Eye contact good. Motor activity appropriate. Speech within normal limits. Affect congruent, mood euthymic. Thoughts linear, logical, no signs of hallucinations or delusions. Client Response/Progress/Benefit: []Pt receptive of session, engaged throughout. Pt noted she was feeling hopeful and optimistic this afternoon and attributes this to taking steps towards improved self-advocacy with her supports. Shared having to take more steps towards setting and maintaining boundaries with her dad in order to ensure she has time to more consistently practice healthy self-care skills. Discussed that this has been difficult to remind herself she can do it, but has felt rewarding to spend more time making her own mental health needs a priority as well. Receptive of discussion on personal accountability and its importance in maintaining mental health stability. Pt worked cooperatively with group to identify benefits of maintaining personal accountability. Engaged in discussion on different accountability styles and brainstorming strategies for improving ability to hold themselves accountable. Pt identified that for homework she will practice using auditory accountability resources via setting reminders on her phone to practice self-care and use positive affirmations. Pt seemed to benefit from support from peers and increasing understanding of personal accountability benefits and strategies. Progress noted in client?s application of communication skills and report of improved ability to reinforce boundaries with supports. Will continue IOP aftercare group. Narrative Note: []
== END 2021-01-23 23:59 ==
LOC: BHOG 14:00
PROVIDERS: Referring Provider Psychiatry & Neurology Psychiatry; Visit Provider Psychiatry & Neurology Psychiatry
DX: F31.63 Bipolar disorder, current episode mixed, severe, without psychotic features (principal); F41.0 Panic disorder [episodic paroxysmal anxiety]; Z72.89 Other problems related to lifestyle
CPT/HCPCS: 90853

== ENCOUNTER 2021-01-26 09:00 | Outpatient (RCR) | payer BC, SELFPAY ==
--- NOTE | 2021-01-26 14:00 | BH.SGPN.GN ---
Behaviors/Verbalizations/Mental Status: []Client alert and oriented, casually dressed, hygiene tended to. Eye contact good. Motor activity appropriate. Speech within normal limits. Affect congruent, mood dysthymic. Thoughts linear, logical, no signs of hallucinations or delusions. Client Response/Progress/Benefit: []Client responded well to session, attentive and mostly engaged throughout, though at times appearing distracted by own thoughts. Reported feeling ?exhausted? today but overall positive. Reflected on areas in which she continues to make gains which included taking her meds appropriately, setting small goals, and checking-in with herself on a more regular basis. Client discussed struggling with making consistent healthy choices, noting a desire to drink this coming week despite knowing this would be an unhealthy choice for her. Client indicated connecting withy group topic of healthy decision making. Client attentive throughout discussion and nodding as group identified personal barriers and strategies to improve healthy decisions, giving input when prompted. Client reported she would like to work on improving her ability to make consistent progress by using opposite action when tempted to make unhealthy decisions and give self credit for use of healthy decisions. Appeared to benefit from reflecting on application of coping skills, identifying barriers, and creating a game plan to improve healthy decision-making skills. Will continue IOP aftercare to continue the use of healthy coping skills and maintain stability. Narrative Note: []
--- NOTE | 2021-02-09 14:00 | BH.SGPN.GN ---
Behaviors/Verbalizations/Mental Status: []Client alert and oriented, casually dressed. Eye contact good. Motor activity appropriate. Speech within normal limits. Affect constricted, mood dysthymic. Thoughts linear, logical, no signs of hallucinations or delusions. Client Response/Progress/Benefit: []Pt responded well to session AEB pt providing input during discussion and listening attentively to peers. 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 Recognizes she is doing poorly with setting boundaries with her dad. Pt engaged in discussion about self-love. Pt worked with group to identify strategies to increase self-love. Pt reported she wants to work on self-love by starting each day by telling herself something really positive. Pt seemed to benefit from reviewing treatment progress and stressors as well as learning about how to increase self-love. Pt's progress could be jeopardized by pt's continued lack of boundaries and not following through with skills/strategies she has learned. Pt to continue aftercare program to maintain treatment progress, continue use of healthy coping, and prevent decompensation.
--- NOTE | 2021-02-09 16:12 | BH.MTP_ITS ---
Treatment Plan Review Date of Admission:: 12/29/20 Date of Treatment Plan Review:: 02/09/21 Admitting Diagnoses:: F 31.63 Bipolar disorder, most recent episode mixed, severe without psychosis ; panic disorder; alcohol use disorder; strong cluster b traits Current Diagnoses:: F 31.63 Bipolar disorder, most recent episode mixed, severe without psychosis ; panic disorder; alcohol use disorder; strong cluster b traits Patient's Response to Treatment:: Consistent attendance. Participates during group sessions, listens attentively to others. Struggles with consistently applying healthy coping skills and strategies. Status of Current Problems and Symptoms: Problems ongoing. Pt has overall 75% overall increase in symptoms per DSM 5 at review. Pt's depressive symptoms have increased by 50% and anxiety increased by 75%. Pt admits to not applying skills learned in IOP. Pt has been taking on more 24 hour shifts at the [employer] which negatively impacts mood stability. Problem #1 Problem Name:: maintain or see a reduction in symptoms Status of Goals:: Obj 1 - not met. Pt continues to struggle with consistent application of healthy coping skills. Pt engages in self-sabotage behavior that negatively impacts mental health symptoms. Obj 2 - not met. Pt can identify at least 3 maintenance skills like setting boundaries, working out and self-care however does not apply skills on consistent basis. Team Recommendations:: Team recommends pt continue with current goal and objectives assisting pt with increasing consistent application of skills.
--- NOTE | 2021-02-16 14:00 | BH.SGPN.GN ---
Behaviors/Verbalizations/Mental Status: []Client alert and oriented, neatly dressed and groomed. Eye contact good. Motor activity appropriate. Speech within normal limits. Affect incongruent to mood AEB joking and smiling, but reporting worsening depression and passive SI. Thoughts linear, logical, no signs of hallucinations or delusions. Client Response/Progress/Benefit: []Client responded well to session, client?s emotion today is ?nervous? as client reports ?I?ve been self-sabotaging? and ?I don?t know if I have any wins.? Client shared she has been picking up more shifts despite her mental health providers discouraging this. Client admits she knows working more shifts will lead to a manic episode and then depressive ?crash.? Group and resident advisor gently challenged client and encouraged boundary setting. Receptive of discussion on self-talk and its influence in maintaining long-term mental health stability. Contributed to strategies for improving effective creation and application of believable personal affirmations. Client created several affirmations and shared one with the group. Client plans to put ?I?ve done it before and I can do it again? in her kitchen. Client has reported lack of coping skill application over the past two weeks which could lead to further decompensation. Will continue to monitor client?s mood and symptoms to see if she is appropriate for weekly aftercare. Narrative Note: []
== END 2021-02-22 23:59 ==
LOC: BHOG 09:00
PROVIDERS: Referring Provider Psychiatry & Neurology Psychiatry; Visit Provider Psychiatry & Neurology Psychiatry
DX: F31.63 Bipolar disorder, current episode mixed, severe, without psychotic features (principal); F41.0 Panic disorder [episodic paroxysmal anxiety]; Z72.0 Tobacco use
CPT/HCPCS: 90853

== ENCOUNTER 2021-03-02 09:00 | Outpatient (RCR) | payer BC, SELFPAY ==
--- NOTE | 2021-03-02 14:00 | BH.SGPN.GN ---
Behaviors/Verbalizations/Mental Status: []Client alert and oriented, casual dress, hygiene tended to. Eye contact fair. Motor activity appropriate. Speech within normal limits. Affect constricted, mood dysthymic. Thoughts linear, logical, no signs of hallucinations or delusions. Client Response/Progress/Benefit: []Client responded well to session, receptive to feedback and sharing supportive statements to peers. Client reported mental health positives as challenging negative thoughts and using healthy coping skills more often. 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 Client participated in the group discussion of maintenance and the benefits of creating a maintenance plan. Client contributed as the group discussed what components make up a maintenance plan. Client created own maintenance plan for depression. Client identified warning signs which included: laying in bed all day, suicidal thoughts, thinking no one cares, and making plans to drink. Client's coping skills included: grounding, asking self if harmful or helpful, and reaching out to support. Appeared to benefit from creating a maintenance plan to promote gains and prevent setbacks. Will continue aftercare next week.
--- NOTE | 2021-03-02 14:25 | BH.MTP_ITS ---
Treatment Plan Review Date of Admission:: 01/05/21 Date of Treatment Plan Review:: 03/02/21 Admitting Diagnoses:: F 31.63 Bipolar disorder, most recent episode mixed, severe without psychosis ; panic disorder; alcohol use disorder; strong cluster b traits Current Diagnoses:: F 31.63 Bipolar disorder, most recent episode mixed, severe without psychosis ; panic disorder; alcohol use disorder; strong cluster b traits Patient's Response to Treatment:: Consistent attendance. Participates during group sessions, listens attentively to others. Struggles with consistently applying healthy coping skills and strategies. Status of Current Problems and Symptoms: Problems ongoing. Pt's overall symptoms went from a 18 at intake of aftercare to a 50, which indicates a significant increase in mental health symptoms. Pt's depressive symptoms went from a 2 to a 6, which indicates significant increase in symptoms. Anxiety also increased AEB by DSM going from a 3 to an 8. Pt admits to not applying skills learned in IOP. 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 Problem #1 Problem Name:: maintain or see a reduction in symptoms Status of Goals:: not met. Pt continues to struggle with consistent application of healthy coping skills. Pt engages in self-sabotage behavior that negatively impacts mental health symptoms. Obj 2 - not met. Pt can identify at least 3 maintenance skills like setting boundaries, working out and self-care however does not apply skills on consistent basis. Team Recommendations:: Team recommends pt continue with current goal and objectives assisting pt with increasing consistent application of skills.
--- NOTE | 2021-03-09 14:00 | BH.SGPN.GN ---
Behaviors/Verbalizations/Mental Status: []Client alert and oriented, casual appearance. Eye contact fair. Motor activity appropriate. Speech within normal limits. Affect constricted, mood dysthymic. Thoughts linear, logical, no signs of hallucinations or delusions. Client Response/Progress/Benefit: []Pt responded well to session AEB pt openly sharing thoughts and feelings and completing worksheet. Pt reported mental health positive as engaging in more self-care. Pt stated stressor as being micro-managed at the [facility] following a EMS judgement call she made that didn't go well. Pt responded well to group discussion and review about self-care. Pt stated she will work on following self-care activities: reading, exercise, self-reflection, and positive affirmations. Pt seemed to benefit from support from peers and identifying self-care plan. Pt to continue aftercare to prevent decompensation, increase consistent healthy coping, and challenge distorted thoughts.
--- NOTE | 2021-03-16 14:00 | BH.SGPN.GN ---
Behaviors/Verbalizations/Mental Status: []Client alert and oriented, casually dressed and groomed. Eye contact fair to good. Motor activity appropriate. Speech within normal limits. Affect congruent, mood euthymic. Thoughts linear, logical, no signs of hallucinations or delusions. Client Response/Progress/Benefit: [] Client responded well to session, provided input, and listened attentively to peers. Reported feeling ?hopeful? today as client has been working on emotion regulation and self-care. Client reports ongoing use of deep breathing, reaching out to supports, and exercise. Client reports a stressor which is a potential promotion at work that client wants but is is unsure about taking as it may have negative impacts on her mental health. Able to identify several pros and cons of the position and discussed wanting to take more time to consider her decision before making it. Client engaged in discussion on self-advocacy. Worked with group to identify the benefits of self-advocacy, as well as common barriers. Reviewed the personal bill of rights and shared belief that she has the right to ?make decisions based on my feelings?. Worked with group to identify strategies to increase ability to advocate for oneself. Reported she wants to work on advocating for herself by reminding herself that she has the right to ?be in a non-abusive environment?. Noted plans to take steps in addressing a toxic relationship. Client seemed to benefit from reviewing treatment progress and skill application, as well as learning about how to increase self-advocacy. Client to continue aftercare to promote gains, prevent regression, and further improve functioning. Narrative Note: []
== END 2021-03-25 23:59 ==
LOC: BHOG 09:00
PROVIDERS: Referring Provider Psychiatry & Neurology Psychiatry; Visit Provider Psychiatry & Neurology Psychiatry
DX: F31.63 Bipolar disorder, current episode mixed, severe, without psychotic features (principal); F41.0 Panic disorder [episodic paroxysmal anxiety]; Z72.89 Other problems related to lifestyle
CPT/HCPCS: 90853

== ENCOUNTER 2021-03-30 10:20 | Outpatient (RCR) | payer BC, SELFPAY | END 2021-03-30 16:00 | disposition home or self-care (01) | LOC: BHOG 10:20 | PROVIDERS: Referring Provider Psychiatry & Neurology Psychiatry; Visit Provider Psychiatry & Neurology Psychiatry | DX: F31.63 Bipolar disorder, current episode mixed, severe, without psychotic features (principal) ==

== ENCOUNTER 2022-07-09 08:00 | Outpatient (RCR) | payer BC, SELFPAY ==
--- NOTE | 2022-07-09 09:00 | BH.SGPN.GN ---
Behaviors/Verbalizations/Mental Status: []Pt alert and oriented, casually dressed and groomed. Eye contact fair. Motor activity restless. Speech within normal limits. Affect constricted, mood anxious and depressed. Thoughts linear, logical, no signs of hallucinations or delusions. Reviewed pt?s symptom tracker, no risk for suicidal ideation, plan, or intent as of 07/09/22 Client Response/Progress/Benefit: [] Pt responded well to session, attentive and engaged. Pt reports feeling anxious this morning to be back in IOP tx. Pt completed IOP in the past but pt admitted I was never fully sober so pt is looking forward to getting more out of the program this time. Pt reports being four months sober now and pt sees benefits and struggles that come with sobriety. Pt shared she is more anxious because of this, but pt also is more engaged in her life now. Pt receptive to peer feedback and encouragement. Pt will continue IOP tx to prevent decompensation, maintain sobriety, and increase distress tolerance skills. Narrative Note: []
--- NOTE | 2022-07-09 10:01 | BH.SGPN.GN ---
Behaviors/Verbalizations/Mental Status: []Eye contact is good. Motor activity is appropriate. Appearance is casual. Speech is Appropriate. Mood is depressed and anxious. Affect is constricted. Thoughts are linear and logical. No evidence of psychosis. Client Response/Progress/Benefit: []Pt first day in IOP tx, was an attentive participant in group discussions and psychoeducation. Participated with peers in experiential activity. Pt attentive and taking notes during interactive discussion with peers in which they worked together to define what coping skills are. Group then identified unhealthy coping skills which included; isolating, substance abuse, stress eating, sleeping to escape, and denial. Psychoeducation on coping skill formation and benefits of healthy coping skills on mental health. Pt nodded in agreement with peers that unhealthy coping can have negative impacts on mental health and make the situation worse in the long-term. Benefited from increased awareness and education the benefits of having a healthy coping repertoire and consequences of unhealthy coping on mental health and relationships. Will continue in IOP to improve mood stability, increase healthy coping, and prevent decompensation. Narrative Note: []
--- NOTE | 2022-07-11 10:10 | BH.SGPN.GN ---
Behaviors/Verbalizations/Mental Status: [] Eye contact is good. Motor activity is appropriate. Appearance is casual. Speech is Appropriate. Mood is depressed. Affect is flat. Thoughts are linear and logical. No evidence of psychosis. Client Response/Progress/Benefit: [] Pt was an active participant in group discussions and activities. Attentive during psychoeducation. Participated during interactive group discussions on defining stress, benefits of stress, and how they respond when feeling overwhelmed with stress. 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 Pt stated that his 'stress jar' is overflowing and that when her jar is overflowing it leads to outbursts, hospitalization, and self-harm. Benefited from increased understanding of stressors and how they can impact mental health. Will continue in IOP to maintain safety, prevent decompensation/re-admission, and increase healthy coping. Narrative Note: []
--- NOTE | 2022-07-11 11:10 | BH.SGPN.GN ---
Behaviors/Verbalizations/Mental Status: []Pt alert and oriented, casually dressed and groomed. Eye contact good. Motor activity appropriate. Speech within normal limits. Affect constricted, mood depressed. Thoughts linear, logical, no signs of hallucinations or delusions. Client Response/Progress/Benefit: []Pt participated at times during group discussions. Attentive during psychoeducation. Participated in experiential activity in which group members had to utilize stress management skills in the moment. Pt agreed with peers that their cooperation and communication was a helpful resource and pt worked well with peers to problem-solve the stressors presented. Pt engaged in review of the 4 A?s and picked wanting to work on adapting her expectations as pt often sets unrealistic goals for herself. Pt encouraged to set goals based on current functioning. Benefited from processing in the moment stress management strategies and identifying new ways to cope with stress. Will continue in IOP tx to prevent decompensation, improve overall functioning, and increase distress tolerance. Narrative Note: []
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
[2022-07-11 11:46] VITALS: BP 129/74; PULSE 70
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
--- NOTE | 2022-07-11 12:36 | BH.DR.ITP ---
Initial Treatment Plan Patient Information Visit Information: ADMISSION DATE: EXPECTED LOS: 4-6 weeks Problems/Symptoms Problem #1:: Mood instability Symptom:: Sadness, hopelessness, worthlessness, irritability, anger, apathy, anhedonia, low energy, decreased concentration, passive thoughts of , passive and active suicidal ideation, thoughts of self-harm Problem #2:: Anxiety Symptom:: Worry, panic attacks, avoidance, flashbacks, reexperiencing
--- NOTE | 2022-07-13 09:10 | BH.SGPN.GN ---
Behaviors/Verbalizations/Mental Status: [] Eye contact is good. Motor activity is appropriate. Appearance is casual. Speech is Appropriate. Mood is depressed. Affect is congruent. Thoughts are linear and logical. No evidence of psychosis. Reviewed daily check in sheet. Due to long-standing and severe SI pt utilizing a different check-in scale from other group members which is reviewed by her therapist daily. Client Response/Progress/Benefit: [] Pt participated when prompted. Attentive. Daily symptom tracker notes /5 for anxiety and /5 for depression and self-harm urges. Emotion for today is ?agitated?. Mental health wins include ?hanging out with sister last night?. Shared why this is a win and how it helped her mental health. Struggling with depression since yesterday. Reports strong urges to self-harm. She isolated yesterday and skipped an AA meeting. Has Thanksgiving with her family this week and is ruminating extensively which has exacerbated her symptoms. Urges to drink to calm her emotions. Insight regarding consequences of this. Group provided feedback regarding coping with stress of the holiday and emotion regulation during stressful family events which was beneficial. Will continue in IOP to prevent decompensation/re-admission, maintain safety, and increase healthy coping. Narrative Note: []
--- NOTE | 2022-07-13 10:10 | BH.SGPN.GN ---
Behaviors/Verbalizations/Mental Status: []Eye contact is poor. Alert and oriented. Motor activity is appropriate. Appearance is casual. grooming is appropriate. Speech is Appropriate. Mood is depressed. Affect is flat. Thoughts are linear and logical. No evidence of psychosis or hallucinations. Client Response/Progress/Benefit: []Client passive participate AEB providing no contributions, however did appear to listen attentively to others. The group identified barriers to managing emotions such as unable to identify the emotion, negative self-talk, catastrophizing, jumping to conclusions, personalizing, and reading other?s body language. During group activity, client mostly quiet. Client benefited from session to gain understanding on the importance of managing emotions to improve daily functioning. Client will continue IOP to improve daily functioning, improve distress tolerance, and prevent decompensation.
--- NOTE | 2022-07-13 15:13 | BH.MDN ---
Multi-Disciplinary Note - Note 45-min Individual Time Started:: 08:45 Date: 07/11/22 Purpose of session/treatment goals addressed:: Purpose of session was to assess client's current symptoms and stressors. Additional focus on identifying treatment goals for IOP. Eye Contact:: Fair Motor Activity:: Restless Appearance:: Casual Speech:: Appropriate Mood:: Anxious, Depressed Affect:: Flat Thoughts:: Linear, Logical, No evidence of hallucinations/delusions noted Staff Interventions:: CBT techniques, rapport building, strengths perspective, treatment planning, taught coping skills Client Response:: Client reported since her intake she has been continuing to struggle with having urges to drink alcohol despite being on medication that is to taper cravings. Client stated she has been able to keep herself from drinking since 02/2022. Client reported she has continued to feel depressed in the last two weeks with thoughts others would be better without her. Client stated she has daily suicidal thoughts with idea to wreck her truck or cut herself. Client reported she does not have intention to act on these thoughts. Client stated she would bring in her razor blades to therapist on Saturday to decrease access to lethal means. Client stated while in IOP she would like to work on learning ways to manage anxious symptoms. Client reported she has been experiencing increased anxiety especially when having to be in public. Client stated she will avoid going to the grocery store due to being severely anxious. Client reported while in IOP she would like to work on decreasing anxiety, relearning healthy coping skills, and improve ability to function. Risks/Concerns:: Client reports daily suicidal thoughts with ideas on how she could kill herself. Client denies suicidal plan or intention to date. Client agreeable to call crisis or go to nearest emergency room if feels unable to keep self safe. Progress Toward Goals/Plan:: Client's first week in program, session focused on identifying current symptoms, current stressors, and identifying treatment goals for IOP. Client to continue IOP to improve daily functioning, improve mood stability, and prevent decompensation. Time Stopped:: 09:35
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
--- NOTE | 2022-07-13 15:49 | BH.MTP_ITS ---
[facility] Treatment Plan - Patient Information Program Physician:: Dr. Monsivais Primary Therapist:: Wendy Quintanilla, [facility] - Psychiatric Diagnoses Psychiatric Diagnoses:: 1. Bipolar 1 disorder, most recent episode depressed, severe without psychotic features (F31.4). 2. Borderline personality disorder. 3. Panic disorder. 4. Alcohol use disorder in full remission for 4 months Diagnosis Code(s):: F31.4 - Estimated LOS Estimated LOS (in weeks):: 6 Problem/Goal #1 - Problem/Goal #1 Stated Goal:: Client will improve mood management and reduce suicidal ideations, feelings of hopelessness, and depressive symptoms. Description of Barriers: Pt has extensive hx of chronic suicidal thoughts, hx of medication non-compliance, self-sabotage behaviors, limited social support, negative thought patterns, and distorted thoughts could be potential barriers to treatment. Functional Impact: The patient is a 35-year-old female with a history of bipolar disorder, panic, alcohol use disorder and strong cluster B traits who was referred to the [facility] behavioral health IOP program by her psychiatrist at [place] [id number]. The patient is known to the [facility] program as this is her third time going through this program. She was recently hospitalized 3 times since February 2022 including once in February, May 03 to May 07, 2022, and most recently May 19 to May 24, 2022. The most recent admission was for depression and actively suicidal thoughts. Since being released from the hospital she continues to have worsening depression and frequent suicidal ideation. She has a history of alcohol use disorder but has been sober since March 04, 2022 when she went to detox at [facility]. - Objectives Objective #1 Stated Objective: Client will learn and utilize 2-3 healthy coping strategies/distress tolerance skills to manage mood instability and decrease suicidal ideation. Interventions: Therapist and group will utilize CBT techniques to assist client with understanding the connection between thoughts, feelings and behaviors. Education will be provided on behavioral activation. Therapist will assist client in learning internal coping strategies to manage depressive symptoms, along with helping client identify triggers. Therapist and group will teach DBT distress tolerance skills to improve emotion regulation. Discharge Criteria: Client will have achieved this goal when can verbalize and has practiced at least 2 healthy coping strategies that successfully manage depressive symptoms. Target Date: 08/20/22 Review Date: 08/06/22 Objective #2 Stated Objective: Pt will decrease depressive symptoms AEB pt?s score on the DSM 5 cross-cutting measure and improve pt?s daily functioning. Interventions: Through groups and individual therapy, pt will be provided with education on cognitive distortions, mistaken beliefs, and identifying and combating negative self-talk. Therapist will assist pt with getting back into the activities she once enjoyed as well as increasing healthy coping strategies. Discharge Criteria: Pt will have met this goal when pt?s score on the DSM 5 cross cutting measure for depression has been decreased and per pt?s report daily functioning has improved. Target Date: 08/20/22 Review Date: 08/06/22 Problem/Goal #2 - Problem/Goal #2 Stated Goal:: Client will reduce overall frequency, intensity, and duration of the anxiety so that daily functioning is not impaired.? Description of Barriers: Pt has extensive hx of chronic suicidal thoughts, hx of medication non-compliance, self-sabotage behaviors, limited social support, negative thought patterns, and distorted thoughts could be potential barriers to treatment. Functional Impact: The patient is a 35-year-old female with a history of bipolar disorder, panic, alcohol use disorder and strong cluster B traits who was referred to the [facility] behavioral health IOP program by her psychiatrist at [place] [id number]. The patient is known to the [facility] program as this is her third time going through this program. She was recently hospitalized 3 times since February 2022 including once in February, May 03 to May 07, 2022, and most recently May 19 to May 24, 2022. The most recent admission was for depression and actively suicidal thoughts. Since being released from the hospital she continues to have worsening depression and frequent suicidal ideation. She has a history of alcohol use disorder but has been sober since March 04, 2022 when she went to detox at [facility]. - Objectives Objective #1 Stated Objective: Client will learn and implement 2-3 calming skills to reduce overall anxiety and manage anxiety symptoms. Interventions: Therapist and group sessions will help client identify physiological warning signs of anxiety, increase awareness of thoughts that increase anxiety, and identify behaviors that reinforce anxious symptoms. Group and individual counseling will teach client calming skills to help manage anxious symptoms. Discharge Criteria: Client will have achieved this goal when can verbalize at least 2 calming skills and reports skills successfully help reduce anxious symptoms. Target Date: 08/20/22 Review Date: 08/06/22 Objective #2 Stated Objective: Pt will decrease anxious symptoms AEB pt?s score on the DSM 5 cross-cutting measure improve pt?s daily functioning. Interventions: Through groups and individual therapy, pt will be provided educa tion about anxiety?s impact on body and common physiological reaction to anxiety. Therapist will teach pt appropriate breathing techniques and build healthy coping skills to manage daily anxieties. Discharge Criteria: Pt will have met this goal when pt?s score on the DSM 5 cross cutting measure for anxiety has been decreased and per pt?s report daily functioning has improved. Target Date: 08/20/22 Review Date: 08/06/22
--- NOTE | 2022-07-16 10:05 | BH.SGPN.GN ---
Behaviors/Verbalizations/Mental Status: [] Eye contact is good. Motor activity is appropriate. Appearance is casual. Speech is Appropriate. Mood is depressed. Affect is flat. Thoughts are linear and logical. No evidence of psychosis. Client Response/Progress/Benefit: [] Pt participated at times during the group discussions. Participated during interactive discussion on defining conflict (internal/external) and possible benefits to conflict. Attentive during psychoeducation on conflict styles and engaged during small group activity in which peers identified the benefits and consequences to each conflict style. Benefited from increase awareness of the impact of conflict styles in mental health. Will continue in IOP to maintain safety, increase healthy coping, and prevent decompensation/re-admission. Narrative Note: []
--- NOTE | 2022-07-16 15:53 | BH.MDN ---
Multi-Disciplinary Note - Note 45-min Individual Time Started:: 11:10 Date: 07/16/22 Purpose of session/treatment goals addressed:: Purpose of session was to address goals 1 and 2 from MTP. Focus became creating crisis plan due to increased suicidal thoughts. Eye Contact:: Fair Motor Activity:: Restless Appearance:: Casual Speech:: Appropriate Mood:: Anxious, Depressed Affect:: Constricted Thoughts:: Linear, No evidence of hallucinations/delusions noted Staff Interventions:: thought challenging, CBT techniques, strengths perspective, completed risk assessment / safety planning, other - reviewed healthy coping skills Client Response:: Client stated Saturday evening she was feeling suicidal and contacted crisis to help calm her down. Client reported Saturday she was still suicidal and talked with a friend about her thoughts. Client stated it helped a little to express how she was feeling. Client reported she indirectly told her sister she was struggling, but didn't directly say she was suicidal to her sister because doesn't want to worry her. Client reported she was able to get through the rest of the day and went to bed early that night. Client reported she did go to the [employer] holiday gathering yesterday. client stated she did follow through with plan of going to AA meeting following the dinner. Client reported it did help a little to go to an AA meeting after the dinner. Client reported she was able to maintain sobriety all weekend and did not engage in any suicidal behavior. Client reported feeling suicidal today with thoughts of wrecking her truck or taking pills. Client stated she does feel able to keep herself safe. 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 Client was hesitant to respond if she could keep herself safe if has access to all her medication. Client texted sister in session with therapist asking sister if she would keep extra medications for client. client's sister responded to text during session stating she would keep the medications for client. Client reported she will go to an AA meeting tonight. Client agreeable to engage in a healthy skill like reading, grounding, or getting outside. Risks/Concerns:: See client response for additional information regarding suicidal risk concerns. Client states able to keep self safe. Created plan for safety with therapist. Contacted client's support to reduce access to medications. Client agreeable to call 911, crisis, or go to nearest emergency room if feels unable to maintain safety. Progress Toward Goals/Plan:: Progress noted with client reporting being able to maintain sobriety and not engage in suicidal behaviors despite being in a triggering environment yesterday. Client continues to report daily suicidal thoughts and urges to drink but is stopping self from following through on those thoughts. Client's progress could be hindered if individual sessions are consistently focused on crisis management. Client is to continue IOP to increase consistent use of healthy coping skills, challenge distorted thoughts, and prevent decompensation. Time Stopped:: 12:03
--- NOTE | 2022-07-18 09:05 | BH.SGPN.GN ---
Behaviors/Verbalizations/Mental Status: []Pt eye contact fair, casually dressed, motor activity appropriate, speech normal rate and tone, mood depressed, flat affect, thoughts linear and intact, no evidence of delusions or hallucinations. Reviewed daily check in sheet and no reports of suicidal ideations or intent. Client Response/Progress/Benefit: []Client responded well to session AEB listening attentively to others and sharing thoughts and feelings. Client reported mental health positive as using positive self-talk yesterday to manage negative thoughts in the moment. 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 Client stated she was able to remind herself that she doesn't want to hurt others, even though she was having that intrusive thought. Seemed to benefit from connection from others about intrusive thoughts and psychoeducation on intrusive thought patterns. Client stated stressor as calling off work today by lying to her boss that she was sick. Seemed to realize this was not a helpful choice. Client to continue IOP to maintain safety, increase use of healthy coping skills, and prevent decompensation. Narrative Note: []
--- NOTE | 2022-07-18 10:15 | BH.SGPN.GN ---
Behaviors/Verbalizations/Mental Status: [] Eye contact is good. Motor activity is appropriate. Appearance is casual. Speech is Appropriate. Mood is euthymic. Affect is full. Thoughts are linear and logical. No evidence of psychosis. Client Response/Progress/Benefit: [] Pt was an active participant in group discussions and experiential activity. Attentive during psychoeducation on resiliency. Participated in interactive discussion with peers on the definition of resiliency and where it comes from. Group identified that resiliency can be the result of; past experiences, learned behaviors, and observations of others. Group also worked together to identify the benefits of being resiliency and how it is related to mental health. Able to relate experiential activity of group juggle to topics of resiliency. Worked well with peers in small group in which they identified factors that contribute to resiliency.Benefited from increased awareness of resilience and the factors that contribute to building resiliency. Will continue in IOP to prevent decompensation/ re-admission, maintain safety, and stabilize mood. Narrative Note: []
--- NOTE | 2022-07-18 15:33 | BH.MDN_ITS ---
Multi-Disciplinary Note - Note 45-min Individual Time Started:: 11:32 Date: 07/18/22 Purpose of session/treatment goals addressed:: Purpose of session was to assess suicidal lethality due to client reporting increased suicidal thoughts with idea to wreck truck. 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 She did scare herself because when she was having suicidal thoughts of wrecking her truck she has her niece in the truck with her. Client reported she has never had thoughts of hurting others but recently has been not caring as much. Client stated she has had thoughts of wrecking into a semi truck which is different then the past. client reported she did not act on her suicidal thoughts while driving her niece because she doesn't want to hurt anyone which was able to stop her. Client stated additional protective factor that has stopped her from acting on her suicidal thoughts is fear of unknown after . Client stated she does feel able to drive her truck safely. Client agreed it would be a good precaution to not drive others in her truck at this time. Client agreeable if suicidal thoughts were to increase she is to give her keys to a support person. Client stated she is able to keep hers elf safe. Client stated this morning she did call off work lying to her boss that she was sick. Client did recognize this decision is not helpful for her treatment progress. Therapist reviewed the pro/cons distress tolerance skill. Therapist encouraged client to start using the provided worksheet prior to her making certain decisions. Client agreed she is struggling with making decisions that can hinder her progress. Risks/Concerns:: See client response for additional information regarding suicidal risk. Client agreeable to not drive others in her truck at this time an d her sister is keeping her access medications for client. Client does not have access to firearms. Client has no hx of suicidal attempts. Long history of chronic suicidal thoughts. Client able to plan for safety and reports ability to keep self and others safe. Client agreeable to call crisis, 911, or go to nearest emergency room if feels unable to keep self safe. Progress Toward Goals/Plan:: Progress limited. Client continues to report chronic suicidal thoughts. Individual sessions are focused on crisis management, which could be hindrance to treatment progress due to not being able to teach new skills/strategies. Client has been able to maintain safety and sobriety. Client is to continue IOP to improve daily functioning, increase use of healthy coping skills and prevent decompensation. Time Stopped:: 12:15
--- NOTE | 2022-07-20 09:05 | BH.SGPN.GN ---
Behaviors/Verbalizations/Mental Status: []Eye contact good, casually dressed, motor activity appropriate, speech normal rate and tone, mood content, congruent constricted, thoughts linear and logical, no evidence of delusions or hallucinations. Reviewed pt's symptom tracker, suicidal ideation within pt baseline, denies any current plan, or intent as of this date 07/20/22. Client Response/Progress/Benefit: [] Pt responded well to session, attentive and engaged. Pt reports feeling better and good this morning as pt has less suicidal ideations today. Pt stated she engaged in some healthy self-care last night which included pt reading outside and using positive self-talk. Pt reported she is trying to work on combating her chronic SI by reminding herself of the people who do love her and need her. Pt also has been more consistently attending AA meetings and pt went to one of Saturday night. Pt's stressor today is that her arm is hurting her from lifting. Pt shared that pushing herself too far in lifting has been a form of self-harm for pt. Pt receptive to motivational interviewing from therapist and reducing self-sabotage. Pt's mood is improved and her SI is decreased today which is positive, but pt continues to struggle with prolonged mood stability. Pt will continue IOP tx to prevent rehospitalization and increase distress tolerance skills. Narrative Note: []
--- NOTE | 2022-07-20 10:10 | BH.SGPN.GN ---
Behaviors/Verbalizations/Mental Status: [] Eye contact is fair. Motor activity is appropriate. Appearance is casual. Speech is Appropriate. Mood is dysthymic. Affect is constricted. Thoughts are linear and logical. No evidence of psychosis. Client Response/Progress/Benefit: [] Pt was an active participant in group discussion. Attentive during psychoeducation on different types of anxiety disorders. Along with peers provided insight on the definition of anxiety as well as the impact of anxiety which include; poor sleep, not completing tasks, poor concentration, impacts relationships, impacts work, and decreases appetite. Pt identified her physical symptoms of anxiety which are right chest, rapid heart beat, and fidgety. Pt reported her safety behavior is to avoid things that make her feel anxious. Benefited from increased insight and awareness from group discussions. Pt is to continue IOP to improve mood stability, challenge negative thoughts, and prevent decompensation.
--- NOTE | 2022-07-23 09:00 | BH.SGPN.GN ---
Behaviors/Verbalizations/Mental Status: []Eye contact is fair. Motor activity is appropriate. Appearance is casual. Speech is Appropriate. Mood is dysthymic. Affect is flat. Thoughts are linear and logical. No evidence of psychosis. Reviewed daily check in sheet and reports suicidal ideation, denies plan or intention. This is below pt's baseline. Client Response/Progress/Benefit: []Pt responded well to session AEB listening attentively to others and sharing thoughts and feelings. Pt stated mental health positive as attending two AA meetings this weekend. Pt reported she enjoyed one of the meetings and didn't find the second one as helpful. Pt stated she is just happy she went to the meetings because she usually doesn't go to weekend meetings. Pt stated additional mental health positive as using positive self-talk when had to go to her parents house for a dinner. Pt reported she did enjoy spending time decorating her tree with her niece and nephew. Pt shared stressor as work changing her schedule every other day. Pt stated was having some bad thoughts this morning and work constantly changing her schedule was not helping. Pt seemed to benefit from support from peers. Pt to continue IOP to improve daily functioning, increase healthy coping, and prevent decompensation. Narrative Note: []
--- NOTE | 2022-07-23 10:12 | BH.SGPN.GN ---
Behaviors/Verbalizations/Mental Status: []Eye contact is good. Motor activity is appropriate. Appearance is casual. Speech is Appropriate. Mood is euthymic. Affect is congruent, full. Thoughts are linear and logical. No evidence of psychosis. Client Response/Progress/Benefit: []Pt did well to be an engaged participant in group discussions which is progress compared with previous groups. Attentive during psychoeducation on SMART goals (Specific, Measurable, Achievable, Realistic, and Time-bound) and engaged in group experiential activity. Participated in an interactive discussion with peers in which they worked together to define what a goal is and the benefits of having goals, providing input and examples throughout. Group identified benefits as; provides motivation, increased confidence, needed for growth, gives a sense of accomplishment, and help promote healthy change behaviors. Participated in interactive discussion in which group identified barriers to setting goals and following through with goals. Barriers identified included; lack of motivation, procrastination, criticism from self/others, unrealistic expectations, outside stressors, and not knowing where to start. Noted connecting with barrier of perfectionistic thinking and unrealistic expectations. Benefited from increased awareness of benefits and strategies for goal-setting. Will continue in IOP to prevent decompensation, improve mood stability, and improve ability to use healthy distress tolerance skills. Narrative Note: []
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
--- NOTE | 2022-07-24 09:05 | BH.SGPN.GN ---
Behaviors/Verbalizations/Mental Status: [] Eye contact is good. Motor activity is appropriate. Appearance is casual. Speech is Appropriate. Mood is euthymic. Affect is congruent. Thoughts are linear and logical. No evidence of psychosis. Reviewed daily check in sheet and pt's suicidal ideations were lower than baseline. Client Response/Progress/Benefit: [] Pt participated when prompted. Attentive. Emotion for today is ?stressed?. Mental health wins include ?I stuck with my schedule and didn?t overdo it?. Shared examples in the past in which she would push herself to far and end up burning out which would lead to SI. Reports stressors around her sponsor and AA in general. She is working on the 9th step which requires her to make amends. Elaborated on how this is challenging for her. Also shared that her sponsor mentioned that she should not rely on her psych medications and gave suggestions to stop certain ones. Pt believes that her medication are helpful and has no plans to stop. Benefited from group support, encouragement, and feedback. Will continue in IOP to maintain safety, prevent decompensation/re-admission, and increase healthy coping. Narrative Note: []
--- NOTE | 2022-07-24 10:00 | BH.SGPN.GN ---
Behaviors/Verbalizations/Mental Status: []Pt alert and oriented, casually dressed and groomed. Eye contact good. Motor activity appropriate. Speech within normal limits. Affect constricted, mood anxious. Thoughts linear, logical, no signs of hallucinations or delusions. Client Response/Progress/Benefit: []Pt was an active participant AEB contributing to discussion, taking notes, and engaging in group activity. Connected with the topic of pitfalls and listened to group discussion on barriers that prevent from choosing a healthier path to mental wellness. Group worked together to identify examples of personal pitfalls which included; not setting boundaries, using unhealthy coping skills, and procrastination. Pt did well in the group activity, able to make connections to how lack of communication and awareness make it nearly impossible to overcome pitfalls. Pt benefited from group as pt learned to better identify potential barriers to improving mental health symptoms. Pt will continue IOP tx to prevent rehospitalization and increase distress tolerance skills. ? Narrative Note: []
--- NOTE | 2022-07-24 15:35 | BH.MDN_ITS ---
Multi-Disciplinary Note - Note 30-min Individual Time Started:: 11:05 Date: 07/24/22 Purpose of session/treatment goals addressed:: Client requested to meet with therapist due to concerns she relapsed over weekend. Eye Contact:: Fair Motor Activity:: Restless Appearance:: Casual Speech:: Appropriate Mood:: Anxious, Dysthymic Affect:: Constricted Thoughts:: Logical, No evidence of hallucinations/delusions noted Staff Interventions:: thought challenging, motivational interviewing, CBT techniques, strengths perspective, other - reviewed healthy coping skills Client Response:: Client stated on Saturday she was feeling overwhelmed and had desire to isolate so she doubled her atarax dose during the afternoon to make her sleep most the day away. Client expressed concern this choice would be considered a relapse. Client stated her AA sponsor doesn't identify this behavior as a relapse but told client you are jorge the line. Client stated she agrees she could jeopardize her sobriety if she continues to engage in behavior like on Saturday. Client reported she hasn't taken more than prescribed since Saturday and still is sober from alcohol. Client stated she wanted to be honest today because she knows dishonesty could lead her to ruining her sobriety. Client initially reported I don't know when asked what else she could have done on Saturday when felt overwhelmed and the desire to isolate. With assistance client identified reading, going to the gym, getting outside, and using her DBT crisis survival worksheets could be helpful. Client unable to identify barrier to not using healthy skills. Agreeable it could be helpful to put up post it notes in her house to remind self of skills. Provided client with post it notes to accomplish this task. Therapist reiterated importance of client using her healthy skills outside treatment. Risks/Concerns:: Client has hx of chronic suicidal thoughts. Continues to report daily thoughts of suicide. Denies suicide plan or intention to date. Reports ab ility to maintain safety. Progress Toward Goals/Plan:: Progress variable. Client continues to engage in choices that could sabotage her mental health and/or sobriety. Client struggling with using her healthy skills/distress tolerance skills outside treatment environment. Client is to continue IOP to increase use of skills, challenge distorted thoughts and prevent decompensation. Time Stopped:: 11:35
== END 2022-07-25 23:59 ==
LOC: BHIOP 08:00
PROVIDERS: Referring Provider Psychiatry & Neurology Psychiatry; Visit Provider Psychiatry & Neurology Psychiatry
DX: F31.4 Bipolar disorder, current episode depressed, severe, without psychotic features (principal); F60.3 Borderline personality disorder; F41.0 Panic disorder [episodic paroxysmal anxiety]; F10.91 Alcohol use, unspecified, in remission
CPT/HCPCS: S9480; 90832; 90834; 90837; 90853

== ENCOUNTER 2022-07-26 08:21 | Outpatient (RCR) | payer BC, SELFPAY ==
[2022-07-26 00:42] VITALS: BP 129/74; PULSE 70
--- NOTE | 2022-07-26 09:10 | BH.SGPN.GN ---
Behaviors/Verbalizations/Mental Status: [] Eye contact is good. Motor activity is appropriate. Appearance is casual. Speech is Appropriate. Mood is euthymic. Affect is congruent. Thoughts are linear and logical. No evidence of psychosis. Reviewed daily check in sheet and no reports of suicidal ideations or intent. Client Response/Progress/Benefit: [] Pt participated when prompted. Attentive. Daily symptom tracker notes /5 for depression and /5 for anxiety. Mental health wins were that she set boundaries with her work. Elaborated on how this was beneficial to her mental health. She also followed through with a suggestion to place sticky notes throughout the house with healthy skills. States ?when I?m in a rough spot I forget about these skills so this will help me remember?. Believes that its already working as she utilized a healthy skill yesterday. Talked about increased nightmares in the past week which correlated to both a medication change and starting ?trauma work? with her therapist. She has spoked with her outpatient team about this and was placed on medication for nightmares yesterday. Unclear is trauma work is causing this however per pt they have stopped this until the nightmares subside. Pt is worried that not sleeping will lead to carlo or depression. Benefited from group support, encouragement, and feedback. Will continue in IOP to maintain safety, prevent decompensation/re-admission, and to increase healthy coping. Narrative Note: []
--- NOTE | 2022-07-26 10:10 | BH.SGPN.GN ---
Behaviors/Verbalizations/Mental Status: []Pt alert and oriented, casually dressed and groomed. Eye contact good. Motor activity appropriate. Speech within normal limits. Affect constricted, mood distracted. Thoughts linear, logical, no signs of hallucinations or delusions. Client Response/Progress/Benefit: []Pt responded well to session, contributing to discussion and engaged during the activity. Group identified the benefits of change which included: less stress, healthier wellbeing, and better mental health. Worked with the group to identify barriers to change and pt identified personal barriers as ?ourselves? and distorted thought patterns. Pt participated along with group in activity where they identified and discussed the emotions related to change. Pt participated in discussion on the change process and personal experiences with implementing change in past. Benefited from increased awareness and understanding of emotions, benefits, and barriers related to change. Will continue IOP tx to prevent rehospitalization and increase distress tolerance skills. ? Narrative Note: []
--- NOTE | 2022-07-26 11:10 | BH.SGPN.GN ---
Behaviors/Verbalizations/Mental Status: []Pt alert and oriented, casually dressed and groomed. Eye contact good. Motor activity appropriate. Speech within normal limits. Affect congruent, mood euthymic. Thoughts linear, logical, no signs of hallucinations or delusions. Client Response/Progress/Benefit: []Pt responded well to session, attentive. Did well to process activity and work with group to relate the strategies used to overcome barriers in the activity to managing change in own life. Pt was more verbal and socially engaged today in group which pt appeared to benefit from. Pt identified wanting to ?try harder in AA.? Pt reports feeling that he is in the contemplation stage of change and her barriers are ?myself? and negative thinking patterns. Pt shared wanting to focus on exploring her spirituality to improve her AA experience. Appeared to benefit from identifying a small goal to work towards. Pt will continue IOP tx to prevent rehospitalization and improve distress tolerance skills. ??? Narrative Note: []
--- NOTE | 2022-07-30 14:28 | BH.MTP_ITS ---
Treatment Plan Review Date of Admission:: 07/09/22 Date of Treatment Plan Review:: 07/30/22 Admitting Diagnoses:: 1. Bipolar 1 disorder, most recent episode depressed, severe without psychotic features (F31.4). 2. Borderline personality disorder. 3. Panic disorder. 4. Alcohol use disorder in full remission for almost 5 months. 5. Primary support, work and financial issues Current Diagnoses:: 1. Bipolar 1 disorder, most recent episode depressed, severe without psychotic features (F31.4). 2. Borderline personality disorder. 3. Panic disorder. 4. Alcohol use disorder in full remission for almost 5 months. 5. Primary support, work and financial issues Patient's Response to Treatment:: Patient consistently attends IOP, tends to be attentive during group discussions, and often completes homework from individual sessions. Status of Current Problems and Symptoms: Ongoing problems. Client continues to report chronic suicidal and self-harm thoughts daily. Client requires at least two individual sessions per week due to crisis thoughts. Client struggling with urges to drink alcohol, but has been able to maintain sobriety. Client reporting continued depressed and anxious symptoms. Client has reported decrease in the intensity of her negative thought patterns. Per client's DSM 5 scores at mid- point scores indicate a 43% decrease in overall symptoms when compared to client's intake scores. Problem #1 Problem Name:: mood instability Status of Goals:: obj 1 - not met. Client is able to identify healthy coping skills like exercise, opposite action, challenging negative thoughts, and changing environment. Client struggles with consistent application of skills. Obj 2 - partially met, ongoing work encouraged. DSM 5 scores at mid-point show a 50% reduction in depression. Team Recommendations:: Team recommends client to continue current goals and objectives. Encourages focus on reinforcement of skills and discussing strategies to increase consistent application of skills. Problem #2 Problem Name:: Anxiety Status of Goals:: obj 1 - not met. client able to identify calming skills like grounding, belly breathing, and guided meditation. Struggles with using skills consistently. Obj 2 - partially met. DSM 5 scores indicate a 45% decrease in anxiety. Team Recommendations:: Team recommends client to continue current goals and objectives. Encourages focus on reinforcement of skills and discussing strategies to increase consistent application of skills.
--- NOTE | 2022-07-31 09:10 | BH.SGPN.GN ---
Behaviors/Verbalizations/Mental Status: [] Eye contact is good. Motor activity is appropriate. Appearance is casual. Speech is Appropriate. Mood is euthymic. Affect is full. Thoughts are linear and logical. No evidence of psychosis. Reviewed daily check in sheet and pt reports 2/10 for SI and 2/10 for intent which is below baseline. Client Response/Progress/Benefit: [] Pt participated at times during the group discussion. Attentive. Daily symptom tracker notes 2/5 for depression, anxiety, and self-harm urges which are below baseline. Emotion for today is ?tired?. Mental health wins are that she is attempting new healthy coping skills. She tried guided mediation over the weekend which she believed was somewhat helpful. Another win was that she attended an office green party which she states ?I normally would have avoided? due to anxiety and large crowds. Utilized opposite action and overall felt that it was very beneficial to attend. Stressors involved poor sleep which she believes is related to ?side effects from my meds?. She has been communicating with her outpatient psychiatrist and they are aware and trying to adjust medications. Pt reports sleeping 2-3 hours a day for the past week. No signs of carlo per pt. Benefited from group support, encouragement, and feedback. Will continue in IOP to maintain safety, prevent decompensation/re-admission, and to increase healthy coping skills. Narrative Note: []
--- NOTE | 2022-07-31 10:05 | BH.SGPN.GN ---
Behaviors/Verbalizations/Mental Status: []Pt alert and oriented, casually dressed and groomed. Eye contact good. Motor activity appropriate. Speech within normal limits. Affect constricted, mood dysthymic, anxious. Thoughts linear, logical, no signs of hallucinations or delusions. Client Response/Progress/Benefit: []Pt responded well to session AEB contributing some to discussion, taking notes, and listening attentively to others. Group discussed the benefits of managed anger and anger as a secondary emotion. Pt shared perspective that anger can act as a mask for sadness.? Pt completed worksheet on anger triggers and personal warning signs of anger. Pt identified their biggest triggers as a coworker, driving, and feeling disrespected. Appeared to benefit from increased knowledge of the anger cycle as well as personal triggers. Will continue IOP tx to promote mood stability, further improve healthy boundaries and communication, and reinforce use of healthy coping skills. Narrative Note: []
--- NOTE | 2022-07-31 11:10 | BH.SGPN.GN ---
Behaviors/Verbalizations/Mental Status: []Client alert and oriented, casually dressed and groomed. Eye contact fair. Motor activity appropriate. Speech within normal limits. Affect constricted, mood dysthymic. Thoughts linear, logical, no signs of hallucinations or delusions. Client Response/Progress/Benefit: []Pt was engaged throughout AEB contributing to group discussion and self-reflection. Group finished processing cues to anger worksheet. Pt contributed as group brainstormed healthy coping skills for better managing anger which included: music, walking/exercise, changing the environment, communicating with supports, and journaling. Pt reported she would be willing to start using body scan tool to help manage anger in the moment. Pt appeared to benefit from identifying different techniques to manage anger as well as gaining awareness of potential consequences of unmanaged anger. Will continue IOP tx to increase consistent use of skills, challenge negative thinking,, and prevent decompensation.
--- NOTE | 2022-08-01 10:26 | BH.MDN ---
Multi-Disciplinary Note - Note 60-min Individual Time Started:: 09:00 Date: 08/01/22 Purpose of session/treatment goals addressed:: Purpose of session was to address goals 1 and 2 from MTP. Eye Contact:: Good Motor Activity:: Restless Appearance:: Casual Speech:: Appropriate Mood:: Anxious, Dysthymic Affect:: Constricted Thoughts:: Linear, Logical, No evidence of hallucinations/delusions noted Staff Interventions:: thought challenging, motivational interviewing, CBT techniques, strengths perspective, other - provided homework for client to identify what needs to be different in recent rekindled relationship that was unhealthy in the past. Client Response:: Client reported her moods have been all over the place. Client stated on Saturday she was suicidal, depressed and anxious. Client stated Saturday evening felt anxious about going to a event for her old boss that is moving. Client reported she was worried about being around so many people and doesn't like to say goodbye. Client stated she was able to manage negative mood and unhelpful thought patterns. Client reported she went to the event Saturday and her anxiety was better than she expected. Client stated she was sad because the person moving has helped her a lot throughout her mental health and addiction journey. Client reported she did have self-harm thoughts on Saturday. Client utilized pros/cons worksheet to help prevent self-harm behaviors. Client stated had suicidal thoughts on Saturday, but denied plan or intent. Client reported she did attempt to use meditation, reading and reaching out to supports on Saturday to help. Client reported on Saturday continued to have suicidal thoughts, but was able to manage thoughts. client stated she had an appointment with her outpatient psychiatrist that pissed me off because a new contract was given that list more rules in order to stay a client at this psychiatrists office. Client stated after the appointment yesterday she felt irritable and go into an argument with her boyfriend. Client reported she started dating this person last week. Client stated she is worried it will get too serious, too fast. Client stated dated this person over the summer and it was very unhealthy. Client reported she believes it could be better this time because she isn't drinking. Client agreeable to create list of signs the relationship is turning unhealthy. Recognizes being in unhealthy relationship could be detrimental to her treatment progress. Risks/Concerns:: Chronic thoughts of suicide and self-harm. Denies current suicidal intention or plan to date. future oriented. understands if feels unable to keep self safe she is to call crisis or go to nearest emergency room. Progress Toward Goals/Plan:: Progress noted AEB pt being able to maintain safety and starting to use healthy coping skills more consistently. Pt continues to struggle with engaging in sabotage behaviors. Pt continues to report daily thoughts of suicide or self-harming thoughts. Pt has been able to manage those thoughts. Pt is to continue IOP to decrease self-sabotage, increase consistent use of healthy coping skills, and prevent decompensation. Time Stopped:: 10:00
--- NOTE | 2022-08-01 11:10 | BH.SGPN.GN ---
Behaviors/Verbalizations/Mental Status: [] Client alert and oriented, casually dressed and groomed. Eye contact fair. Motor activity appropriate. Speech within normal limits. Affect constricted, mood dysthymic. Thoughts linear, logical, no signs of hallucinations or delusions. Client Response/Progress/Benefit: [] Client was an active participant in group discussions and activity. Attentive during psychoeducation. Client along with peers were able to identify several negatives on the picture given to the group. Client and peers also identified positives in the picture and made the connect that finding positives is much more difficult. Interactive discussion on the definition of perspective, how perspective is formed, and why perspective is important in treatment. Client along with peers also identified that perspective can either motivate and encourage treatment or be a barrier to receiving help. Client shared she is trying to adopt a more hopeful perspective currently. Stated having a positive perspective is helping her use new healthy coping skills and challenge her suicidal thoughts. Recognizes when her perspective is negative she has less follow through and low motivation to challenge suicidal thoughts. Will continue in IOP to stabilize moods, increase consistent use of healthy coping and prevent decompensation.
--- NOTE | 2022-08-01 11:16 | BH.SGPN.GN ---
Behaviors/Verbalizations/Mental Status: []Client alert and oriented, casually dressed and groomed. Eye contact good. Motor activity appropriate. Speech within normal limits. Affect congruent, mood euthymic. Thoughts linear, logical, no signs of hallucinations or delusions Client Response/Progress/Benefit: []Client was attentive and contributed in small and larger group discussion which is progress compared to prior sessions. Client completed strengths exploration worksheet and identified personal strengths of honestly, love, and confidence. With some assistance, Client able to acknowledge how these strengths are helping her and can continue to help client in their mental health journey. Shared wanting to focus on giving herself credit more often to reinforce strength of confidence. Benefited from identifying personal strengths and strategies for enhancing use of identified strengths. Client to continue IOP tx to promote use of healthy coping skills, maintain mood stability, and prevent decompensation. Narrative Note: []
--- NOTE | 2022-08-01 11:39 | PCM.BH.PN ---
Progress Note Progress Note: History of Present Illness/Interim History: The patient is a 36-year-old female with a history of bipolar disorder, panic disorder, alcohol use disorder and strong cluster B traits who is seen in follow-up at the [facility] behavioral health IOP program. I last saw the patient about 3 weeks ago. The patient states that she feels her anxiety may be a little better. Her mood remains depressed but also may be slightly improved. She states that she is trying to practice the new coping skills she is learning in the IOP program. The patient now denies hopelessness and worthlessness but states that when she is around her family she does feel worthless still. Her sleep has now decreased to about 3 hours a night and she feels this may be due to starting a new medication recently (Vraylar). But she is unsure if her decreased sleep started right with this new medication. She had suicidal ideation about 5 days ago and has not had any since. She has not engaged in any cutting for self-harm but has engaged in over exercising her elbow. She is looking forward to doing a power lifting competition in about 1-1/2 weeks. She plans to maybe decrease her exercise after that. She denies active suicidal ideation, hallucinations, delusions or symptoms of carlo. She remained sober from alcohol use. Current Psychiatric Medications: [] Risperidone discontinued 1 week ago; Vraylar 1.5 mg p.o. daily started 2 weeks ago by her outpatient provider; Lunesta nightly; Cogentin decreased to 1 mg once daily now; Atarax 50 to 100 mg as needed for panic attacks; naltrexone 50 mg p.o. daily; gabapentin 100 mg p.o. 3 times daily. (X3 weeks now) Mental Status Examination: [] The patient is an overweight 35-year-old female who appears normal for stated age and is casually dressed and groomed with good hygiene. She has no psychomotor agitation or retardation and is ambulatory with a normal gait. She is cooperative during the interview. Eye contact is fair to good. Speech is normal rate and rhythm and fluent with no pressure. Mood is depressed. Affect is mildly constricted. Thought process is goal-directed and organized. Thought content: There is no evidence of active suicidal ideation or thoughts of self-harm. There is evidence of occasional passive thoughts of . The patient overall is more hopeful and feels she is improving and feels the skills she is learning her valuable. There is no evidence of homicidal ideation, hallucinations or delusions. Reality testing is intact. Impulsivity is high. And insight is fair and improving. Diagnoses: [] 1. Bipolar 1 disorder, most recent episode depressed, severe without psychotic features (F31.4) 2. Borderline personality disorder 3. Panic disorder 4. Alcohol use disorder in full remission for almost 5 months 5. Primary support, work and financial issues 6. Chronic knee pain and overexercising Plan: [] The patient will continue the IOP program at [facility] as the structure, support, education and group therapy will hopefully prevent worsening of the patient's symptoms that might require rehospitalization. The patient felt safe during the interview and if it anytime she does not feel safe she will let us know or go to the emergency room. The risks, options, and possible complications and side effects of the medications were again discussed with the patient and she understands and accepts these. No medication changes were made today as her current outpatient provider it is making recent changes and knows the patient better. The patient will continue to go to and remain sober from alcohol and all other drugs. She will continue to follow-up with her outpatient providers and I will see the patient in follow-up on a regular basis while she is in the IOP program.
--- NOTE | 2022-08-02 09:01 | BH.SGPN.GN ---
Behaviors/Verbalizations/Mental Status: []Eye contact good, casually dressed, motor activity appropriate, speech normal rate and tone, mood euthymic, bright affect, thoughts linear and intact, no evidence of delusions or hallucinations. Reviewed pt's symptom tracker, suicidal ideation below pt baseline, denies any current plan, or intent as of this date 08/02/22. Client Response/Progress/Benefit: []Pt responded well to session, attentive and willing to share with the group. Pt reports feeling ?happy this morning. Shared this is ?weird? for her as she has been depressed for so long she forgets what happy feels like. Current mental health wins include continuing to make progress in AA and working on the various steps. Additional win noted as allowing herself to express sadness and cry when experiencing an unexpected trigger, rather than suppressing as she usually does. Pt identified current stressor as her physical health as she has a surgery on her elbow scheduled for next month. Appearing to benefit from supportive feedback and reflecting on mental health wins, as well as skills to maintain progress. Pt to continue IOP tx to further improve consistent healthy coping implementation, improve mood stability, and prevent decompensation. Narrative Note: []
--- NOTE | 2022-08-02 10:01 | BH.SGPN.GN ---
Behaviors/Verbalizations/Mental Status: [] Client alert and oriented, casually dressed and groomed. Eye contact good. Motor activity appropriate. Speech within normal limits. Affect constricted, mood euthymic and irritable. Thoughts linear, logical, no signs of hallucinations or delusions. Client Response/Progress/Benefit: [ ]Client responded well to session AEB taking notes throughout and listening attentively to others. Client was attentive throughout group activity identifying famous individuals and how they overcame failure to be successful. Client helped group identify how fear of failure can impact mental health and relationships. Client personally identified that past setbacks have hurt their self confidence to push past fear. Client participated in experiential activity, working with group members to problem solve. Appeared to benefit from increased knowledge of fear of failure. Will continue IOP tx to improve emotional regulation, reduce distorted thinking patterns, and increase overall functioning. Narrative Note: []
--- NOTE | 2022-08-02 11:01 | BH.SGPN.GN ---
Behaviors/Verbalizations/Mental Status: [] Client alert and oriented, casually dressed and groomed. Eye contact good. Motor activity appropriate. Speech within normal limits. Affect constricted, mood euthymic and irritable. Thoughts linear, logical, no signs of hallucinations or delusions. Client Response/Progress/Benefit: [] Client responded well to session, engaged in the experiential activity and attentive throughout group processing. Client completed fear of failure worksheet and was able to identify thoughts and behaviors that reinforce personal fear of failure including anxiety, negative beliefs, and stress. Client participated in small group discussion regarding strategies to overcome fear of failure. Identified positive affirmations, checkpoints, smart goals, and using positive supports. Appeared to benefit from increased knowledge of strategies to combat fear of failure and gaining self-awareness. Client will continue IOP tx to prevent decompensation, challenge negative thinking patterns, and increase self esteem. Narrative Note: []
--- NOTE | 2022-08-06 09:00 | BH.SGPN.GN ---
Behaviors/Verbalizations/Mental Status: [] Eye contact is good. Motor activity is appropriate. Appearance is casual. Speech is Appropriate. Mood is euthymic. Affect is full. Thoughts are linear and logical. No evidence of psychosis. Reviewed daily check in sheet and pt reports 2/10 for SI and 2/10 for intent. Below baseline. Client Response/Progress/Benefit: [] Pt was an active participant in group discussion. Attentive. Emotion for today is happy. Daily symptom tracker notes 1/5 for depression and anxiety and 2/5 for anxiety. Mental health wins include decreased isolation and completing opposite action over the weekend. Shared that she Wanted to isolate over the weekend however insight at how this would negatively impact her mental health. Instead she spent time with her sister and BF. Also shared that today she is 5 months sober. Stressor is that I was told to stop all my anti-psychotics over the weekend. She called her outpatient psychiatrist's office regarding her side effects and was told to stop the medications. She is worried because last time this happened I started drinking and almost ended up in the hospital. She has been working with her outpatient team for the past several weeks regarding medication issues. Group encouraged her to reach out again today if she remains concerned about decompensating. Benefited from group support, encouragement, and feedback. Will continue in IOP to prevent decompensation, stabilize mood, and maintain safety. Narrative Note: []
--- NOTE | 2022-08-06 10:00 | BH.SGPN.GN ---
Behaviors/Verbalizations/Mental Status: [] Eye contact is good. Motor activity is appropriate. Appearance is casual. Speech is Appropriate. Mood is euthymic. Affect is conguent. Thoughts are linear and logical. No evidence of delusions or hallucinations. Client Response/Progress/Benefit: [] Pt was an active participant in group discussions and activity. Attentive during psychoeducation and provided insight into obstacles in the way of mental wellness. Pt shared her picture depicting her current mental health reality with the group. She described her current reality as feeling able to manage stressors and obstacles more effectively. Pt's desired reality is consistently using her healthy coping skills and being on the right medications. Pt identified barriers that get in the way of desired reality include: negative thinking, isolation, poor boundaries, toxic people, and self-harm thoughts. Benefited from taking look at current mental health state and obstacles for progress. Will continue in IOP to continue use of healthy coping, challenge distorted thoughts, and prevent decompensation.
--- NOTE | 2022-08-06 11:08 | BH.SGPN.GN ---
Behaviors/Verbalizations/Mental Status: []Pt alert and oriented, casually dressed and groomed. Eye contact good. Motor activity appropriate. Speech within normal limits. Affect congruent, mood euthymic. Thoughts linear, logical, no signs of hallucinations or delusions. Client Response/Progress/Benefit: []Pt engaged during activity, encouraging peers and contributed as group brainstormed ideas on how to cope with internal barriers that keep pts stuck from moving towards goals. Able to identify barriers to desired reality. Identified barriers to current reality to include: negative thinking, poor boundaries, and self-harm Pt wants to work on overcoming the barrier of negative thinking by continuing to use affirmations and thought challenging. Benefited from group by identifying obstacles and solutions to desired reality.? Pt will continue IOP tx to prevent decompensation, increase use of distress tolerance skills, and prevent rehospitalization. Narrative Note: []
--- NOTE | 2022-08-07 09:00 | BH.SGPN.GN ---
Behaviors/Verbalizations/Mental Status: []Eye contact is good. Motor activity is appropriate. Appearance is casual. Speech is Appropriate. Mood is agitated. Affect is incongruent to mood-laughing at her report of stressors. Thoughts are linear and logical. No evidence of psychosis. Reviewed daily check in sheet and pt's scores were within pt's baseline. Client Response/Progress/Benefit: [] pt responded somewhat well to session, inappropriately laughing at times, but participating. Pt shared her mood is all over the place this morning. Pt stated she did something really bad last night, but it was not drinking. Pt reached out to her AA sponsor which was helpful, but pt is worried that she will do something again. Discussed healthy coping skills pt can use to reduce unhelpful urges. Pt shared she has been using grounding skills and using more self-care, but this morning she did engage in self-harming behaviors at the gym. Pt receptive to gentle thought challenging by therapist. Pt will continue IOP tx to prevent decompensation, maintain safety, and reduce self-sabotaging behaviors. Narrative Note: []
--- NOTE | 2022-08-07 10:54 | BH.MDN ---
Multi-Disciplinary Note - Note 30-min Individual Time Started:: 10:15 Date: 08/07/22 Eye Contact:: Fair Motor Activity:: Appropriate Appearance:: Casual Speech:: Soft Mood:: Anxious, Depressed Affect:: Constricted Thoughts:: Linear, No evidence of hallucinations/delusions noted Staff Interventions:: thought challenging, motivational interviewing, CBT techniques, strengths perspective, completed risk assessment / safety planning Client Response:: Pt asked to meet with therapist due to worries about being off her mood stabilizer. Pt called her outpatient psychiatrist and pt is meeting with her psychiatrist tomorrow. Pt shared she was instructed to go off her mood stabilizer due to a side effect over the weekend. Pt reports fear that being off her mood stabilizer will make her act erratically. Pt fears that she will not have control over her actions while driving, but denies any active suicidal ideations. Encouraged pt not to drive if she would feel safer, but pt reports ability to maintain safety today. Pt plans to talk on the phone with her boyfriend while she drives to help pt stay present and reduce impulsivity. Pt sees her psychiatrist tomorrow. Pt continues to struggle with internal conflict in her sobriety. Pt receptive to motivational interviewing and thought challenging. Pt agrees to practice self-care tonight and to talk with her supports. Risks/Concerns:: Pt has hx of chronic suicidal thoughts. Continues to report daily thoughts of suicide. Denies suicide plan or intention to date. Reports ability to maintain safety. Progress Toward Goals/Plan:: Mental health progress variable. Pt reports 5 months sobriety, which is positive. However, pt continues to engage in choices that could sabotage her mental health and/or sobriety. These include lack of boundary setting, purposefully engaging in self-harming behaviors, and entering a romantic relationship while in recovery. Pt currently off her mood stabilizers due to a side effect and pt is worried she will spiral out of control. Pt called her psychiatrist and she will meet with Dr. De León tomorrow. Pt reports using healthy coping skills yesterday. Pt is to continue IOP to increase use of skills, challenge distorted thoughts and prevent decompensation. Time Stopped:: 10:45
--- NOTE | 2022-08-09 10:10 | BH.SGPN.GN ---
Behaviors/Verbalizations/Mental Status: [] Eye contact is good. Motor activity is appropriate. Appearance is casual. Speech is Appropriate. Mood is euthymic. Affect is congruent. Thoughts are linear and logical. No evidence of psychosis or hallucinations. Client Response/Progress/Benefit: [] Pt was an active participant in group discussion and activity. Attentive during psychoeducation. Along with peers was able to identify barriers to taking action on her mental health which included: fear of failure, the unknown, change, one's environment, past negative experiences, being passive, and fear of vulnerability. Identified several symptoms and stressors that she feels are holding her back from progress such as anger, people pleasing, self-sabotage, cognitive distortions, isolation, and self-harm. Benefited from increased self-awareness of obstacles. Will continue in IOP to decrease therapy interfering behaviors, increase consistent use of healthy coping, and prevent decompensation.
--- NOTE | 2022-08-09 11:15 | BH.SGPN.GN ---
Behaviors/Verbalizations/Mental Status: []Client alert and oriented, casually dressed and groomed. Eye contact fair. Motor activity appropriate. Speech within normal limits. Affect congruent, mood euthymic. Thoughts linear, logical, no signs of hallucinations or delusions. Client Response/Progress/Benefit: []Client responded well to session, taking notes and participating in worksheet discussion. Client connected with the zones of action/change and reported that making sustainable change comes from stepping out of one?s comfort zone into the learning zone. Client set a goal to gain control over her people pleasing. Client reported her goal is before saying yes take 5 minutes to think about it. Client identified telling a support person as a support needed to help her accomplish goal. Appeared to benefit from identifying a small goal to benefit mental health. Will continue IOP tx to decrease therapy interfering behavior, challenge distortions, and prevent decompensation.
--- NOTE | 2022-08-14 10:15 | BH.SGPN.GN ---
Behaviors/Verbalizations/Mental Status: []Pt alert and oriented, casually dressed and groomed. Eye contact good. Motor activity appropriate. Speech within normal limits. Affect constricted, mood dysthymic. Thoughts linear, logical, no signs of hallucinations or delusions. Client Response/Progress/Benefit: []Pt participated in group discussion. Group worked together to identify benefits of healthy relationships which included improves mental health, encouragement, motivation, accountability, validation, connection, someone to share experiences with, and support during challenges. Pt shared ?I know healthy relationships exist, but I like the toxic ones.? Group identified factors that lead to unhealthy relationships which included trauma, lack of communication, and substance use. Pt did well during the activity to listen to peers and stay engaged. Benefited from increased insight and awareness of benefits of healthy relationships and factors that contribute to unhealthy relationships. Will continue in IOP to prevent decompensation, reduce self-sabotaging behaviors, and improve distress tolerance Narrative Note: []
--- NOTE | 2022-08-14 11:10 | BH.SGPN.GN ---
Behaviors/Verbalizations/Mental Status: [] Client alert and oriented, casually dressed and groomed. Eye contact good. Motor activity appropriate. Speech within normal limits. Affect constricted, mood dysthymic. Thoughts linear, logical, no signs of hallucinations or delusions. Client Response/Progress/Benefit: [] Client responded well to session, engaged and taking notes. Worked with group to identify characteristics of healthy and unhealthy relationships. Throughout activity made comments that she didn't think the healthy characteristics existed. Attentive during psychoeducation about characteristics of healthy, unhealthy, and abusive relationships. Client did not identify an area in which she could work on to help improve her relationships. Appeared to benefit from identifying areas she wants to work on to build healthier relationships. Pt recommended to continue IOP tx to improve emotion regulation, increase consistent use of healthy coping and prevent decompensation.
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
--- NOTE | 2022-08-15 09:00 | BH.SGPN.GN ---
Behaviors/Verbalizations/Mental Status: [] Eye contact is fair. Motor activity is appropriate. Appearance is casual. Speech is Appropriate. Mood is dysthymic. Affect is congruent. At times affect is inappropriate AEB pt talking about making unhealthy choices and smiling. Thoughts are linear and logical. No evidence of psychosis. Reviewed daily check in sheet and reports suicidal thoughts, denies intention or plan. Pt has chronic SI, does not appear to be imminent risk to harm self or others. Future oriented. Client Response/Progress/Benefit: []Pt responded well to session AEB listening attentively to others and sharing thoughts and feelings. Pt reported mental health positive as going to AA meeting last night and receiving her 5 month sobriety chip. Pt stated she initially didn't want to go, but had told her sponsor she would go so the accountability helped push her. Pt reported additional win was using temperature change and reaching out to supports when upset following argument with her boyfriend. Pt stated she may have picked a fight with her boyfriend, but did cope better when upset. Pt reported stressor is upcoming holiday family green party. Pt seemed to benefit from support from peers. Pt to continue IOP to increase consistent use of healthy coping, challenge distorted thoughts, and prevent decompensation. Narrative Note: []
--- NOTE | 2022-08-15 10:05 | BH.SGPN.GN ---
Behaviors/Verbalizations/Mental Status: []Eye contact is good. Motor activity is appropriate. Appearance is casual. Speech is Appropriate. Mood is dysthymic and anxious. Affect is congruent. Thoughts are linear and logical. No evidence of psychosis. Client Response/Progress/Benefit: []Pt participated some during the group discussion. Attentive during psychoeducation and actively engaged during experiential activity. Participated during interactive discussion on aspects of fixed mindset. Group identified several aspects of fixed mindset which included; inflexible, belief that one cannot grow, absolute thinking, and all of one's skills, traits, and behaviors are set in stone and can't change. Pt did well in experiential activity in which they were given a seemingly impossible task and were asked to identify fixed thoughts that arose. Group then identified personal examples of fixed thinking in which pt shared personal fixed thoughts as: ?I am always a failure, so why try??, ?I?m never going to get better, so I might as well just quit?, and ?No one cares about me?. Benefited from increased understanding of personal fixed mindsets and how they can impact mental health. Will continue in IOP to prevent decompensation, continue to maintain mood stability, and improve distress tolerance skills. Narrative Note: []
--- NOTE | 2022-08-15 11:05 | BH.SGPN.GN ---
Behaviors/Verbalizations/Mental Status: []Pt alert and oriented, casually dressed and groomed. Eye contact good. Motor activity appropriate. Speech within normal limits. Affect congruent, mood euthymic. Thoughts linear, logical, no signs of hallucinations or delusions. Client Response/Progress/Benefit: []Pt engaged during activity and discussion AEB providing some input, connecting with peers, as well as taking notes throughout. Pt did well to engage as group worked on identifying characteristics and benefits of adopting a growth mindset. Worked with fellow participants in reframing the example fixed thoughts into growth mindset thoughts. Reframed personal fixed thought of ?I am always a failure, why try? with growth mindset thought of ?I am doing the best I can, and I am trying.? Benefitted from discussing benefits of growth mindset and brainstorming strategies for prompting growth-mindset. ?Will continue IOP tx to prevent decompensation, reduce self-sabotaging behaviors, and improve distress tolerance skills. ? Narrative Note: []
--- NOTE | 2022-08-16 09:00 | BH.SGPN.GN ---
Behaviors/Verbalizations/Mental Status: []Pt alert and oriented, casually dressed and groomed. Eye contact good. Motor activity appropriate. Speech within normal limits. Affect congruent, mood euthymic. Thoughts linear, logical, no signs of hallucinations or delusions. Reviewed pt?s symptom tracker, no risk for suicidal ideation, plan, or intent as of 08/16/22 Client Response/Progress/Benefit: []Pt responded well to session, attentive and receptive to feedback. Pt reports feeling calm this morning as pt has made some important realizations and she reached out for support last night. Pt shared she is realizing that her life wasn't peaceful when I was drinking like I thought it was. Pt is stressed about the upcoming holiday due to being around family members. Pt was encouraged to have a plan in place to help pt cope more effectively and prevent relapse. Pt appeared to benefit from reflecting on her insights. Pt will continue IOP tx to promote mood stability and reduce self-sabotaging behaviors. Narrative Note: []
--- NOTE | 2022-08-16 10:10 | BH.SGPN.GN ---
Behaviors/Verbalizations/Mental Status: [] Eye contact is good. Motor activity is appropriate. Appearance is casual. Speech is Appropriate. Mood is depressed. Affect is congruent. Thoughts are linear and logical. No evidence of psychosis. Client Response/Progress/Benefit: [] Pt participated at times group discussions. Attentive during psychoeducation. Participated along with peers on working to define locus of control and provide examples of internal and external locus of control. Interactive discussion between group members, pt, and therapist on characteristics of internal locus of control which included; takes responsibility for actions, less influenced by others and increased confidence. Some characteristic identified by patient and peers for external locus of control included; others have more influence and control, decreased motivation to make changes if one believes that mood/thoughts/self-esteem are based on others. Active and engaged during experiential activity and was able to see correlations between activity and emotions/perspectives associated with internal vs external locus of control. Benefited from increased insight and awareness of internal vs external locus of control and how this could impact mental health. Will continue in IOP to maintain safety, prevent decompensation/re-admission, and to increase healthy coping skills. Narrative Note: []
--- NOTE | 2022-08-16 11:05 | BH.SGPN.GN ---
Behaviors/Verbalizations/Mental Status: []Client alert and oriented, casually dressed and groomed. Eye contact good. Motor activity appropriate. Speech within normal limits. Affect congruent, mood anxious and dysthymic. Thoughts linear, logical, no signs of hallucinations or delusions. Client Response/Progress/Benefit: []Client responded well to session, actively engaged during psychoeducation on circles of control including areas in which we have control, some influence, or concern but no control over in daily life. Client completed a worksheet in which they identified what areas their own current stressors may fall into. Client identified having most control over: their perspective, boundaries, and engagement in AA, some control over: their boyfriend, mental health, and work, and no control over: social media and traffic. Group then worked together on identifying steps to begin using an internal locus of control when addressing current stressors. Client identified wanting to focus more on improving ability to effectively manage how they respond to boundaries with their boyfriend. Noted plans to do so by having a conversation about their expectations and mental health needs this weekend. Client will continue IOP tx to improve consistent skill application and healthy boundary setting, maintain mood stability, and prevent decompensation. Narrative Note: []
--- NOTE | 2022-08-16 15:47 | BH.MDN_ITS ---
Multi-Disciplinary Note - Note 30-min Individual Time Started:: 11:55 Date: 08/16/22 Purpose of session/treatment goals addressed:: Purpose of session was to discuss plan for upcoming holiday green party at pt's house. Eye Contact:: Fair Motor Activity:: Restless Appearance:: Casual Speech:: Appropriate Mood:: Anxious Affect:: Constricted Thoughts:: Linear, Logical, No evidence of hallucinations/delusions noted Staff Interventions:: thought challenging, motivational interviewing, CBT techniques, strengths perspective, other - create plan for holiday green party Client Response:: Client reported she is feeling anxious about upcoming holiday green party with her family that she is having at her house this weekend. Client stated she did not ask her sister if her sister would be willing to host the holiday green party instead. Client reported her family is expecting her to have the green party and didn't want to upset anyone. Client stated she might ask her sister if they can move the green party to sister's house. Client recognizes this might not happen since client waited to ask until a couple days before the green party. Client worked with therapist to develop plan on what she can do to manage emotions if triggered by her brother. Client reported she feels comfortable with the plan. Risks/Concerns:: Client has hx of chronic suicidal ideation. Client continues to report daily thoughts of suicide. Client denies intention to kill self. Future oriented. Reports able to keep self safe. Client agreeable to call crisis or go to nearest emergency room if feels unable to keep herself safe. Progress Toward Goals/Plan:: Progress variable. Client continues to struggle with making decisions that she knows will likely jeopardize her mental health. Client knows having her brother over at her house for the holiday is a trauma trigger, yet will not set a boundary with her family. Client used to cope with being around her brother by drinking alcohol and this green party could potential jeopardize her sobriety. Client open to creating plan to help her manage emotions while her family is at her house. Client expresses ability to manage her thoughts and keep herself safe. Client is to continue IOP to stabilize moods, improve decision making, and prevent decompensation. Time Stopped:: 12:20
--- NOTE | 2022-08-21 09:05 | BH.SGPN.GN ---
Behaviors/Verbalizations/Mental Status: [] Eye contact is good. Motor activity is appropriate. Appearance is casual. Speech is Appropriate. Mood is euthymic. Affect is full. Thoughts are linear and logical. No evidence of psychosis. Reviewed daily check in sheet and pt reports 4/10 for suicidal ideation on the [facility] SI scale. Client Response/Progress/Benefit: [] Pt was an active participant in group discussion. Attentive. Emotion for today is numb. Daily symptom tracker notes 2/5 for depression and anxiety. Self-harm urges are 4/5. Mental health wins include setting boundaries with BF and utilized healthy coping skills instead of self-harm. Reports that she has strong self-harm urges over the weekend. She called crisis line and was recommended to try an tracee called [employer]. She tried the tracee and found it helpful in decreasing her self-harm urges. Stressfull weekend due to having to spend time with certain family members due to the holiday. I wanted to scream. Admits that she had strong cravings to drink alcohol however was able to again use healthy skills. Benefited from group support, encouragement, and feedback. Will continue in IOP to maintain safety, prevent decompensation, and to increase healthy coping skills. Narrative Note: []
--- NOTE | 2022-08-21 10:10 | BH.SGPN.GN ---
Behaviors/Verbalizations/Mental Status: []Pt alert and oriented, casually dressed and groomed. Eye contact good. Motor activity appropriate. Speech within normal limits-engaging in side conversations. Affect congruent, mood euthymic. Thoughts linear, logical, no signs of hallucinations or delusions. Client Response/Progress/Benefit: []Attentive during psychoeducation on SMART (Specific, Measurable, Achievable, Realistic, Timely) goals AEB by note-taking. Attentive during group discussion on benefits to setting goals which group identified as; reduced anxiety, increased motivation, better relationships, and ?feel better after doing it.? Attentive while peers identified obstacles to setting/completing goals which included; procrastination, mental health, believing they are too difficult, procrastination, self-doubt, and unrealistic expectations. Engaged during activity and was able to relate the activity to goal-setting topic. Benefited from increased awareness on benefits to goal-setting, obstacles to developing and following through with a goal, and strategies for setting goals. Will continue in IOP to further reduce self-harming urges, improve distress tolerance skills, and maintain sobriety. Narrative Note: []
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
--- NOTE | 2022-08-23 10:05 | BH.SGPN.GN ---
Behaviors/Verbalizations/Mental Status: []Eye contact is good. Alert and oriented. Motor activity is appropriate. Appearance is casual. grooming is appropriate. Speech is Appropriate. Mood is dysthymic. Affect is constricted. Thoughts are linear and logical. No evidence of psychosis or hallucinations. Client Response/Progress/Benefit: []Client active participate AEB listening attentively to others and providing contributions throughout. The group identified impacts of not managing emotions on communication as lashing out, stone-walling, not retaining information, and monopolizing the conversation. Client agreed with others when discussing the use of either lashing out or minimizing their emotions when upset. Connected with how this can impede resolving the issue at hand or further effect emotion regulation. Client engaged in activity, able to manage emotions in the moment. Client benefited from session to gain understanding on the importance of managing emotions to improve daily functioning. Client will continue IOP to increase use of healthy distress tolerance and emotion regulation skills, challenge negative thoughts, and prevent decompensation. Narrative Note: []
--- NOTE | 2022-08-23 11:15 | BH.SGPN.GN ---
Behaviors/Verbalizations/Mental Status: []Pt alert and oriented, casual appearance. Eye contact good. Motor activity appropriate. Speech within normal limits. Affect constricted, mood euthymic. Thoughts linear, logical, no signs of hallucinations or delusions. Client Response/Progress/Benefit: []Pt engaged in session AEB pt listening attentively to peers, taking notes, and providing input. Attentive during psychoeducation on 4 zones of regulation. Pt able to identify feelings and behaviors pt exhibits for each zone.? Pt identified coping skills one can use to support self in each zone. Pt reported she connects with being in the yellow and blue zones most often. Pt identified coping skills willing to practice to include: talking to supports and listening to healthy music. Benefited from increased education on zones of regulation or stages of alertness for emotions and healthy coping skills to use for each zone. pt to continue IOP to improve emotion regulation, increase confidence, and prevent decompensation.
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
--- NOTE | 2022-08-24 09:05 | BH.SGPN.GN ---
Behaviors/Verbalizations/Mental Status: []Pt alert and oriented, casually dressed and groomed. Eye contact good. Motor activity appropriate. Speech within normal limits. Affect constricted, mood anxious and dysthymic. Thoughts linear, logical, no signs of hallucinations or delusions. Reviewed pt?s symptom tracker and pt denies any active SI, plan, or intent as of 08/24/22. ? Client Response/Progress/Benefit: []Pt responded well to session, receptive to thought challenging and feedback from group. Pt reports feeling dread this morning due to relationship conflict with her boyfriend and triggers to withdraw from her healthy supports. Pt stated she wanted to isolate today, but she used opposite action. Pt shared she also wants to avoid AA and not go to her meeting this weekend, but the group helped challenge pt. Pt stated she knows she needs to go to AA to maintain her sobriety and pt did go to a meeting last night. Pt appeared to benefit from group encouragement and motivational interviewing. Pt will continue IOP tx to promote use of healthy coping skills and reduce self-sabotaging behaviors. Narrative Note: []
--- NOTE | 2022-08-24 10:10 | BH.SGPN.GN ---
Behaviors/Verbalizations/Mental Status: Client alert and oriented, casually dressed and groomed. Eye contact fair. Motor activity appropriate. Speech within normal limits. Affect constricted, mood dysthymic. Thoughts linear, logical, no signs of hallucinations or delusions. Client Response/Progress/Benefit: [Client responded well to session, attentive and participating in discussion. Participated in discussion of things that can keep people feeling trapped or stuck in life including: isolation, past experiences, negative perspective, and low self-esteem. Group discussed the connection between thoughts, emotions, and behaviors as well as how negative thinking can keep a person stuck. Client attentive during psychoeducation on maintenance cycles. Client able to identify negative thoughts that have reinforced depression and kept client feeling trapped. Client shared a negative thought maintaining depression is no one cares. Stated this thought can lead to her cutting, laying in bed, and isolating. Appeared to benefit from gaining awareness of how negative thoughts reinforce mental health symptoms and keep people stuck. Client to continue IOP to challenge distorted thoughts, increase consistent use of healthy coping, and prevent decompensation.
--- NOTE | 2022-08-24 11:05 | BH.SGPN.GN ---
Behaviors/Verbalizations/Mental Status: []Client alert and oriented, casually dressed and groomed. Eye contact good. Motor activity appropriate. Speech within normal limits. Affect congruent, mood euthymic. Thoughts linear, logical, no signs of hallucinations or delusions. Client Response/Progress/Benefit: []Client responded well to session, contributing to discussion and providing supportive feedback. At times client struggled with being distracted by fellow participants in group. Client identified a negative thought that has kept them stuck. Client's thought was No one cares about me. Client reported when they think this way, they isolates and become more likely to self-harm. Client worked to reframe the thought by finding more rational, realistic ways to look at the thoughts and then processed within group setting. Client reframed the thought to ?I know my niece and nephew care about me and enjoy having me around? Client stated she will use positive self-talk to continue challenging negative self-talk. Client appeared to benefit from practicing challenging negative thinking. Client will continue IOP tx to increase overall functioning and prevent decompensation. Narrative Note: []
== END 2022-08-25 23:59 ==
LOC: BHIOP 08:21
PROVIDERS: Referring Provider Psychiatry & Neurology Psychiatry; Visit Provider Psychiatry & Neurology Psychiatry
DX: F31.4 Bipolar disorder, current episode depressed, severe, without psychotic features (principal); F60.3 Borderline personality disorder; F41.0 Panic disorder [episodic paroxysmal anxiety]; F10.91 Alcohol use, unspecified, in remission; M25.569 Pain in unspecified knee; G89.29 Other chronic pain; Z79.899 Other long term (current) drug therapy
CPT/HCPCS: S9480; 90832; 90834; 90837; 90853

== ENCOUNTER 2022-08-28 07:27 | Outpatient (RCR) | payer BC, SELFPAY ==
[2022-08-26 00:33] VITALS: BP 129/74; PULSE 70
--- NOTE | 2022-08-28 09:00 | BH.SGPN.GN ---
Behaviors/Verbalizations/Mental Status: []Eye contact fair to good, casually dressed, motor activity appropriate, speech normal rate and tone, mood anxious and euthymic, congruent affect, thoughts linear and intact, no evidence of delusions or hallucinations. Reviewed pt's symptom tracker, reports suicidal ideation within pt baseline and denies active plan or intent as of this date 08/28/22. Client Response/Progress/Benefit: [] Pt responded well to session, attentive and providing supportive feedback throughout. Pt reports feeling ?stressed this morning as she has recently agreed to chair her Saturday AA meetings. Pt reports this has been a positive experience and is a personal win but is also stressful as she wants to ensure she does a good job. Went on to identify an additional win as reaching out to healthy supports rather than feed into urges to act on self-harming thoughts. Shared feeling proud of herself for doing so. Appeared to benefit from group discussion and supportive environment. Recommended continued IOP tx to continue to improve consistency of healthy skill application, promote mood stability and maintaining healthy boundaries, as well as prevent decompensation. Narrative Note: []
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
--- NOTE | 2022-08-31 10:08 | BH.SGPN.GN ---
Behaviors/Verbalizations/Mental Status: []Pt alert and oriented, casually dressed and groomed. Eye contact good. Motor activity appropriate. Speech within normal limits-sarcastic. Affect congruent, mood euthymic. Thoughts linear, logical, no signs of hallucinations or delusions. Client Response/Progress/Benefit: []Pt was engaged participant AEB pt listening attentively to others and nodding. Attentive during psychoeducation on communication styles. Assisted group with identifying barriers of effective communication which included: mind-reading, body language, communicating with behaviors, and being vague. Pt reports that she most often uses passive aggressive or passive communication. Pt shared that being passive aggressive keeps pt stuck because pt must ?drop hints? which her supports do not always pickle cutter on. Benefited from increased awareness of different communication barriers, styles, and the importance of communicating effectively to improve mental wellness. Will discharge from IOP tx as pt has received the maximum benefit from IOP and reports improved mood stability. ??? Narrative Note: []
--- NOTE | 2022-08-31 11:10 | BH.SGPN.GN ---
Behaviors/Verbalizations/Mental Status: []Client alert and oriented, casually dressed and appropriately groomed. Eye contact fair. Motor activity appropriate. Speech WNL. Affect constricted, mood dysthymic. Thoughts linear, logical, no signs of hallucinations or delusions. Client Response/Progress/Benefit: []Client responded well to session AEB client listening attentively to others and providing input during group discussion on the pay offs and costs of the different communication styles. Client able to connect how current communication style impacts mental health. Client engaged in activity, used assertive communication throughout in order to accomplish task. Connected with peers comments about importance of using assertive communication. Client reported she wants to work on decreasing people pleasing by starting to say no to things she doesn't have time to do or doesn't want to do. Client seemed to benefit from increasing awareness of healthy strategies to improve communication. Will continue IOP tx to increase distress tolerance, challenge distortions, and prevent decompenation.
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
--- NOTE | 2022-08-31 14:21 | BH.DS ---
Discharge Summary - Demographics Date of Admission:: 07/09/22 Discharge Date: 08/31/22 Presenting Problems at Admission:: The patient is a 35-year-old female with a history of bipolar disorder, panic, alcohol use disorder and strong cluster B traits who was referred to the [facility] behavioral health IOP program by her psychiatrist at [place] [id number]. The patient is known to the [place] IOP program as this is her third time going through this program. She was recently hospitalized 3 times since February 2022 including once in February, May 03 to May 07, 2022, and most recently May 19 to May 24, 2022. The most recent admission was for depression and actively suicidal thoughts. Since being released from the hospital she continues to have worsening depression and frequent suicidal ideation. She has a history of alcohol use disorder but has been sober since March 04, 2022 when she went to detox at [facility]. Discharge Diagnoses:: 1. Bipolar 1 disorder, most recent episode depressed, severe without psychotic features (F31.4). 2. Borderline personality disorder. 3. Panic disorder. 4. Alcohol use disorder in full remission for almost 5 months. 5. Primary support, work and financial issues Reason for Discharge:: Client has been able to maintain safety, stay out of the hospital, maintain sobriety, and reports decrease in depression and anxious symptoms. Client has met maximum benefit from IOP. - Treatment Progress During Treatment & Response: Pt's DSM 5 discharge scores indicate a 50% reduction in depression, 55% decrease in anxiety, and an overall 54% decrease in mental health symptoms when compared to intake scores. Noted treatment progress as maintaining safety, decrease in intensity and frequency of suicidal thoughts, increased use of healthy coping, and maintaining sobriety. Client consistently attended IOP. Showed increased engagement in group discussion towards last couple weeks of treatment. Client often completed homework provided by individual therapist. Client struggled with making decisions that often negatively impacted he mental health. Issues Still to be Addressed:: Trauma treatment, continued emotion regulation skills, healthy decision making, and forming healthy relationships. Discharge Recommendations/Instructions:: 1. [place] [address] psychiatry - appointment next week. 2. [place] [address] therapist - appointment next week. 3. [facility] Aftercare program - starts on 09/06/22 at 2pm. Discharge Handout: Complete Discharge Handout with client on aftercare options and continuity of care.
== END 2022-08-31 12:29 | disposition home or self-care (01) ==
LOC: BHIOP 07:27
PROVIDERS: Referring Provider Psychiatry & Neurology Psychiatry; Visit Provider Psychiatry & Neurology Psychiatry
DX: F31.4 Bipolar disorder, current episode depressed, severe, without psychotic features (principal); F60.3 Borderline personality disorder; F41.0 Panic disorder [episodic paroxysmal anxiety]; F10.91 Alcohol use, unspecified, in remission
CPT/HCPCS: S9480; 90834; 90853

== ENCOUNTER 2022-09-06 08:00 | Outpatient (RCR) | payer BC, SELFPAY ==
--- NOTE | 2022-09-06 14:00 | BH.COMM ---
Communication Note - Communication with Client Communication Note: Presented completed IOP and presents today to starting relapse prevention group which meets once weekly (1.5 hours) for 8 weeks. Case discussed with Dr. Sommers with plan to admit with dx of F31.4
--- NOTE | 2022-09-06 14:11 | BH.MTP ---
Master Treatment Plan - Patient Information Program Physician:: Dr. Monsivais Primary Therapist:: Wendy Quintanilla, [facility] - Psychiatric Diagnoses Psychiatric Diagnoses:: 1. Bipolar 1 disorder, most recent episode depressed, severe without psychotic features (F31.4). 2. Borderline personality disorder. 3. Panic disorder. 4. Alcohol use disorder in full remission for almost 5 months. 5. Primary support, work and financial issues Diagnosis Code(s):: F31.4 - Estimated LOS Estimated LOS (in weeks):: 8 Problem/Goal #1 - Problem/Goal #1 Stated Goal:: client will maintain or see a reduction in symptoms AEB client score on the DSM 5 cross-cutting measure and improve client's daily functioning. - Objectives Objective #1 Stated Objective: Client will continue to consistently apply healthy coping skills to maintain progress made in IOP tx. Interventions: Through group therapy, client will review warning signs and triggers as well as healthy coping skills learned in IOP tx to successfully maintain gains while transitioning into outpatient therapy. Discharge Criteria: Client will have accomplished this goal when client's score on the DSM-5 cross-cutting measure has maintained or reduced over an 8 week period. Target Date: 11/01/22 Review Date: 10/04/22 Objective #2 Stated Objective: Client will learn and utilize 2-3 maintenance strategies to prevent decompensation from original IOP DSM-5 scores. Interventions: Through group therapy, client will be provided with education on healthy maintenance behaviors, relapse prevention techniques, and healthy coping strategies. Discharge Criteria: Client will have accomplished this goal when can report using at least 2 maintenance skills to prevent decompensation compared to original IOP DSM-5 scores. Target Date: 11/01/22 Review Date: 10/04/22
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
== END 2022-09-25 23:59 ==
LOC: BHOG 08:00
PROVIDERS: Referring Provider Psychiatry & Neurology Psychiatry; Visit Provider Psychiatry & Neurology Psychiatry
DX: F31.4 Bipolar disorder, current episode depressed, severe, without psychotic features (principal)
CPT/HCPCS: 90853

== ENCOUNTER 2022-09-26 07:27 | Outpatient (RCR) | payer BC, SELFPAY ==
--- NOTE | 2022-10-04 14:00 | BH.SGPN.GN ---
Behaviors/Verbalizations/Mental Status: []Client alert and oriented, casually dressed. Eye contact good. Motor activity appropriate. Speech within normal limits. Affect congruent, mood euthymic. Thoughts linear, logical, no signs of hallucinations or delusions. Client Response/Progress/Benefit: []Client receptive of session, engaged and providing supportive feedback throughout group. Reports feeling ?content? today. Reports she is meeting regularly with outpatient therapist and psychiatrist, and is taking medication as prescribed. Identified skills she has been using as self-care via reading, reaching out to others, and spending time with her dog. Client engaged in the discussion about self-love and worked with the group to identify strategies for increasing self-love. Reports wanting to work on self-love by reminding herself to ?celebrate wins no matter how big or small?. Seemed to benefit from reviewing treatment progress and strategies for managing current stressors, as well as learning about how to increase self-love. Client will continue in aftercare for ongoing maintenance and further skill development. Narrative Note: []
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
--- NOTE | 2022-10-11 14:00 | BH.SGPN.GN ---
Behaviors/Verbalizations/Mental Status: []Client alert and oriented, casually dressed and groomed. Eye contact good. Motor activity appropriate. Speech within normal limits. Affect congruent, mood euthymic and anxious. Thoughts linear, logical, no signs of hallucinations or delusions. Client Response/Progress/Benefit: []Receptive of session, reports feeling ?happy? today. Shared she has been attending regular outpatient counseling and psychiatry appointments, as well as maintaining medication compliance. Noted use of positive self-talk, self-care, and opposite action as coping skills aiding in ongoing mental health maintenance. Engaged and attentive during discussion of vulnerability and benefits of practicing vulnerability. Shared being vulnerable has not been easy for her as she struggles to sit with uncomfortable emotions. Group discussed ways we avoid feeling vulnerable and how this negatively affects mental health and relationships. Appeared to benefit from group support and discussion reflecting on the positive impact vulnerability can have on mental health. Identified plans to challenge herself to speak up more at either her Saturday or Saturday AA meeting as a way in which she could practice being vulnerable in the next week. Will continue IOP aftercare to promote gains and reinforce healthy coping skills. Narrative Note: []
--- NOTE | 2022-10-19 14:00 | BH.SGPN.GN ---
Behaviors/Verbalizations/Mental Status: []Pt alert and oriented, casually dressed and groomed. Eye fair. Motor activity appropriate. Speech within normal limits. Affect congruent. Mood dysthymic. Thoughts linear, logical, no signs of hallucinations or delusions. Client Response/Progress/Benefit: []Pt responded well to session, attentive and engaged. Pt stated she has been taking her medications and has seen outpatient therapist and psychiatrist in the last week. Pt stated the past week was a bad week. Pt shared she used reading, reaching out to supports, opposite action, walking, and stretching as healthy skills to manage stressors throughout. Pt stated she accomplished goal from last session of being vulnerable by opening up in one of her AA groups. Pt responded well to the discussion of gratitude and the benefits to mental health and relationships. Pt identified different things to focus on each day for the next 7 days to practice gratitude towards self and others. Pt shared she will practice reflecting on person she looks up to, an ability of hers, a life lesson, and a personal accomplishment to practice gratitude over the next week. Pt recommended ongoing IOP aftercare to promote gains made in IOP and reinforce healthy coping skills. Pt did share with therapist privately she relapsed yesterday by drinking. Pt working with outpatient providers to prevent further relapse.
== END 2022-10-23 23:59 ==
LOC: BHOG 07:27
PROVIDERS: Referring Provider Psychiatry & Neurology Psychiatry; Visit Provider Psychiatry & Neurology Psychiatry
DX: F31.4 Bipolar disorder, current episode depressed, severe, without psychotic features (principal); F60.3 Borderline personality disorder; F41.0 Panic disorder [episodic paroxysmal anxiety]; F10.90 Alcohol use, unspecified, uncomplicated
CPT/HCPCS: 90853

== ENCOUNTER 2022-10-24 06:33 | Outpatient (RCR) | payer BC, SELFPAY ==
--- NOTE | 2022-10-25 14:00 | BH.SGPN.GN ---
Behaviors/Verbalizations/Mental Status: []Pt alert and oriented, casually dressed and groomed. Eye contact good. Motor activity appropriate. Speech within normal limits. Affect constricted, mood depressed. Thoughts linear, logical, no signs of hallucinations or delusions. Client Response/Progress/Benefit: []Pt responded well to session AEB sharing and listening attentively to others. Pt reports she has been consistent with counseling and psychiatry, but pt admits that she has been engaging in self-sabotaging behavior. This includes not listening to recommendations from her medical doctor and psychiatrist. Pt shared she did go to AA this past week which was helpful. Pt and a few other peers admitted that they have not been completing homework for aftercare or utilizing healthy coping skills consistently. This prompted a long discussion on accountability and therapist used motivational interviewing. Pt then became more engaged participated in group discussion defining affirmations and why they are important. Pt provided insight throughout clinician?s presentation of tips for writing personal affirmations. Pt wrote own affirmations, including ??struggles are still progress.? Pt appeared to benefit from increased knowledge of affirmation writing and increased self-awareness. Will continue aftercare treatment to reinforce healthy coping skills and promote gains. Narrative Note: []
--- NOTE | 2022-11-08 14:00 | BH.SGPN.GN ---
Behaviors/Verbalizations/Mental Status: []Client alert and oriented, casual in appearance. Eye contact good. Motor activity appropriate. Speech within normal limits. Affect congruent. Mood anxious and dysthymic. Thoughts linear, logical, no signs of hallucinations or delusions Client Response/Progress/Benefit: []Pt responded well to session AEB providing input throughout and listening attentively to others. Pt reported she is scheduled for an intake assessment next week for counseling and psychiatry, though may not be able to attend this as she plans to check herself into residential substance abuse tx. Reports she is not taking medications as prescribed. Pt identified several coping skills she has been using over the past week to continue to manage mental health sx, which included: trying to reach out to healthy supports and honestly communicate, thought challenging/reframing, and opposite action. Pt connected with self-reflection discussion. Worked with group to identify the benefits of self-reflection. Appeared to benefit from identifying how to incorporate self-reflection into daily life. Pt completed aftercare specific self-reflection activity and indicated she has seen improvements in her ability to ask for help when she needs it but would like to continue to focus on making improvements in maintaining sobriety. Pt to d/c from aftercare to enter residential substance abuse tx. Narrative Note: []
--- NOTE | 2022-11-08 16:51 | BH.DS_ITS ---
Discharge Summary - Demographics Date of Admission:: 09/06/22 Discharge Date: 11/18/22 Presenting Problems at Admission:: Pt discharged from IOP tx and transitioned to IOP aftercare to maintain gains pt made in IOP and to reinforce healthy coping skills. At admission to IOP aftercare, pt continued to report symptoms of depression, anxiety, and impulsivity. At admission to IOP aftercare, pt was still struggling with forming healthy relationships, chronic suicidality (of less intensity), and lack of self-esteem. Discharge Diagnoses:: Bipolar 1 disorder, most recent episode depressed, severe without psychotic features (F31.4); Borderline personality disorder; Panic disorder; Alcohol use disorder in full remission for almost 5 months; Primary support, work and financial issues Reason for Discharge:: Pt voluntarily discharged from IOP aftercare due to self- report of needing to check myself into rehab. Pt wanted to prevent further decompensation in her alcohol use. - Treatment Progress During Treatment & Response: Pt did not complete IOP aftercare, so there is no DSM-5 data to note progress in symptom reduction scores. Pt's response to treatment was variable and her progress was mild due to self-report of self-sabotaging behaviors and lack of boundaries with toxic people. Pt did have mostly consistent attendance, but pt often reported inconsistent application of healthy coping skills and medication noncompliance. Issues Still to be Addressed:: Trauma treatment, continued emotion regulation skills, healthy decision making, maintaining sobriety and managing urges, and forming healthy relationships. Discharge Recommendations/Instructions:: Pt voluntarily discharged from IOP aftercare to admit herself to a rehab program for alcohol use disorder. Pt was given additional resources for outpatient counseling that is DBT focused and has an appointment later this month. Discharge Handout: Complete Discharge Handout with client on aftercare options and continuity of care.
== END 2022-11-09 10:32 | disposition home or self-care (01) ==
LOC: BHOG 06:33
PROVIDERS: Referring Provider Psychiatry & Neurology Psychiatry; Visit Provider Psychiatry & Neurology Psychiatry
DX: F31.4 Bipolar disorder, current episode depressed, severe, without psychotic features (principal); F60.3 Borderline personality disorder; F41.0 Panic disorder [episodic paroxysmal anxiety]; F10.90 Alcohol use, unspecified, uncomplicated
CPT/HCPCS: 90853